=== PATIENT | female | born 1960 | race African-American/Black ===

== ENCOUNTER 2017-11-22 20:39 | Inpatient (IN) ==
[2017-11-22] MEDS ORDERED: Nitroglycerin 0.4 MG TAB.SUBL SL ONE (20:58)
--- NOTE | 2017-11-22 21:03 | Emergency Department Note ---
Disposition Clinical Impression: Unstable angina Disposition: Admitted As Inpatient Condition: Good [facility]errals: [facility]Primary Care Provider[facility] - Neto Reynolds [Family Provider] - Forms: ED Satisfaction Letter Time of Disposition: 22:30 Chest Pain HPI - General Chief Complaint: ED Chest Pain Stated Complaint: Chest Pain Time Seen by Provider: 11/22/17 20:46 Source: patient, EMS Limitations: no limitations Vital Signs Reviewed: Yes Nursing Notes Reviewed: Yes - History of Present Illness HPI Narrative: 57-year-old female presents emergency of for chest pain. She was sent from the [facility]. Patient has been in an inpatient psychiatric unit for the past 42 days and also has a history of substance abuse. Patient has a history of cocaine use but has not had any cocaine in the past 42 days. She is a history of congestive heart failure and a previous [place]. She denies any stents. She states her last heart catheter was over 8 years ago. She states her last ejection fraction she was told was around 10%. Her legs are not significantly swollen she states. Nothing seems to improve or worsen her symptoms. Pain is located to the left anterior chest wall. No pain radiation. No other associated symptoms. Severity scale (1-10): 7 - Related Data Allergies Allergy/AdvReac Type Severity Reaction Status Date / Time No Known Allergies Allergy Verified 11/22/17 21:00 Review of Systems: Gen.: No fevers or chills or new weakness Eyes: Denies double vision or any vision changes Ears: Denies any otalgia Pharynx: Denies sore throat CV: Positive for chest pain Respiratory: Denies any cough or sputum production. No shortness of breath. GI: Denies any nausea, vomiting, diarrhea, constipation. Denies abdominal pain Neuro: Denies any headache. No problems with ambulation. No numbness. Skin: Denies any rashes or abrasions Psych: Denies any depression or suicidal or homicidal ideation Musculoskeletal: Denies any arthralgias or myalgias Chest Pain PMH - Past Medical History Medical history: Reports: CHF, diabetes, hypertension Psychiatric history: Reports: anxiety, depression - Social History Smoking Status: Current every day smoker Alcohol use: Reports: none Drug use: Reports: none Physical Exam - General Limitations: no limitations General appearance: alert, in no apparent distress - Head Head exam: atraumatic, normocephalic - Eye Eye exam: Present: normal appearance - ENT ENT exam: normal exam, normal oropharynx - Neck Neck exam: Present: normal inspection - Chest Chest inspection: Present: normal inspection - Respiratory Respiratory exam: Present: normal lung sounds bilaterally - Cardiovascular Cardiovascular exam: Present: regular rate, normal rhythm, normal heart sounds - Abdominal Exam Abdominal exam: Present: soft, Non-Tender, normal bowel sounds - Extremities Exam Extremities exam: Present: normal inspection, pedal edema (1+ pitting edema in the lower extremities bilaterally.) - Neurological Exam Neurological exam: Present: alert, oriented X3 - Psychiatric Psychiatric exam: Present: normal affect - Skin Skin exam: Present: warm, dry, intact Course Vital Signs Temperature 98.4 F 11/22/17 20:42 Pulse Rate 73 11/22/17 20:42 Respiratory Rate 16 11/22/17 20:42 Blood Pressure 123/82 11/22/17 20:42 O2 Sat by Pulse Oximetry 100 11/22/17 20:42 Temperature 98.4 F 11/22/17 20:42 Pulse Rate 73 11/22/17 21:13 Respiratory Rate 16 11/22/17 21:13 Blood Pressure 128/99 11/22/17 21:13 O2 Sat by Pulse Oximetry 99 11/22/17 21:13 Oxygen Delivery Oxygen Delivery Room Air Chest Pain - MDM Narrative Medical decision making narrative: Patient will be admitted for ACS evaluation. Lab work was unremarkable. Troponin negative. Chest x-ray okay. Spoke with hospitalist who accepted the patient. - Medical Records Medical records reviewed: Yes I reviewed the patient's medical records. - Lab Data Lab results reviewed: Yes I reviewed the patient's lab results. Result diagrams: 11/22/17 21:27 11/22/17 21:27 Lab Results 11/22/17 11/22/17 11/22/17 Range/Units 21:27 21:27 21:27 WBC 9.2 (4.3-11.1) K/mcL RBC 4.49 (3.82-4.97) M/mcL Hgb 13.5 (11.5-15.4) g/dL Hct 38.3 (35.3-44.9) % MCV 85.3 (83.0-100.0) fL MCH 30.1 (28.0-33.3) pg MCHC 35.2 (31.6-35.5) g/dL RDW 14.6 H (11.5-14.5) % Plt Count 200 (140-400) K/mcL MPV 10.6 (9.4-12.4) fL Immature Gran % 0.2 (0-4) % Seg Neutrophils % 28.5 % Lymphocytes % 57.9 % Monocytes % 9.5 % Eosinophils % 3.1 % Basophils % 0.8 % Neutrophils # 2.6 (1.6-8.9) K/mcL Lymphocytes # 5.3 H (0.6-4.6) K/mcL Monocytes # 0.9 (0.0-1.3) K/mcL Eosinophils # 0.3 (0.0-0.6) K/mcL Basophils # 0.1 (0.0-0.2) K/mcL PT 10.2 (9.4-12.1) Seconds INR 1.0 APTT 27.9 (26.0-36.0) Seconds Sodium 136 (136-145) mEq/L Potassium 4.6 (3.5-5.1) mEq/L Chloride 106 (98-107) mEq/L Carbon Dioxide 24 (23-29) mEq/L BUN 21 H (6-20) mg/dL Creatinine 1.45 H (0.60-1.20) mg/dL Est GFR ( Amer) 45 L (> 60) Est GFR (Non-Af Amer) 37 L (> 60) BUN/Creatinine Ratio 14 (6-26) Glucose 293 H (70-105) mg/dL Calculated Osmolality 296 (280-300) Calcium 9.5 (8.6-10.3) mg/dL Troponin I < 0.03 (< 0.04) ng/mL - Radiology Data Radiology results reviewed: Yes I reviewed the patient's radiology results. - EKG Data EKG attestation: Yes I reviewed and interpreted this EKG. EKG results narrative: EKG shows a rate of 77. questionable Normal sinus rhythm. Mcdonald is indeterminate. There is a left bundle branch block present. Poor quality EKG.
[2017-11-22 21:36] LABS: Basophils # 0.1 K/mcL (0.0-0.2); Basophils % 0.8 %; Eosinophils # 0.3 K/mcL (0.0-0.6); Eosinophils % 3.1 %; Hematocrit 38.3 % (35.3-44.9); Hemoglobin 13.5 g/dL (11.5-15.4); Immature Granulocytes % 0.2 % (0-4); Lymphocytes # 5.3 K/mcL (0.6-4.6); Lymphocytes % 57.9 %; Mean Corpuscular HGB Conc 35.2 g/dL (31.6-35.5); Mean Corpuscular Hemoglobin 30.1 pg (28.0-33.3); Mean Corpuscular Volume 85.3 fL (83.0-100.0); Mean Platelet Volume 10.6 fL (9.4-12.4); Monocytes # 0.9 K/mcL (0.0-1.3); Monocytes % 9.5 %; Neutrophils # 2.6 K/mcL (1.6-8.9); Platelet Count 200 K/mcL (140-400); Red Blood Count 4.49 M/mcL (3.82-4.97); Red Cell Distribution Width 14.6 % (11.5-14.5); Segmented Neutrophils % 28.5 %
[2017-11-22 21:41] LABS: Prothrombin Time 10.2 Seconds (9.4-12.1)
[2017-11-22 21:44] LABS: Activated Partial Thrombo Time 27.9 Seconds (26.0-36.0)
[2017-11-22 22:00] LABS: BUN/Creatinine Ratio 14 (6-26); Blood Urea Nitrogen 21 mg/dL (6-20); Calcium 9.5 mg/dL (8.6-10.3); Carbon Dioxide 24 mEq/L (23-29); Chloride 106 mEq/L (98-107); Glucose 293 mg/dL (70-105); Osmolality,Calculated 296 (280-300); Potassium 4.6 mEq/L (3.5-5.1); Sodium 136 mEq/L (136-145); eGFR For African Americans 45 (> 60); eGFR For Non-African Americans 37 (> 60)
[2017-11-22 22:01] LABS: Troponin I < 0.03 ng/mL (< 0.04)
[2017-11-22] MEDS ORDERED: Naloxone 0.4 MG/ML INJ IVP PRN (23:06)
[2017-11-22] MEDS ORDERED: Acetaminophen 325 MG TABLET PO PRN (23:06)
[2017-11-22] MEDS ORDERED: *HR* Dextrose 50 % in Water (Syg) 50 ML SYRINGE IVP PRN (23:06)
[2017-11-22] MEDS ORDERED: Dextrose Gel 15 GM/37.5 ML TUBE PO PRN ×2 (23:06)
[2017-11-22] MEDS ORDERED: D5% in Water 1,000 ML IVC PRN (23:06)
--- NOTE | 2017-11-22 23:13 | Internal Med History&Physical ---
Date of Encounter: 11/22/17 Time of Encounter: 23:08 Internal Medicine - H&P: HPI Chief complaint: Chest pain Admitted From: Emergency Dept Plans for Post Hospital Care: Home History of present illness: Ms. Cutler is a 57 year old female with history of hypertension, diabetes mellitus, emphysema, tobacco abuse, depression, history of substance abuse who comes from a [place] facility for substance rehabilitation as she has been there for about 5-6 weeks for cocaine abuse and has been clean since then. The patient's rehabilitation in terms of cocaine abuse has been going very well but she has been experiencing dyspnea mainly on exertion, orthopnea, PND, and occasional lower extremity swelling and per the patient she underwent workup that included an echocardiogram at the [place] which I do not have records of an reportedly she had an ejection fraction of 10%. She tells me that she was set up with a coach wirer and was going to see one next week. Today around 3:57 PM she experienced sudden onset of chest pain on the left side of her chest with radiation to the left shoulder. An EKG was done there that showed left bundle branch block but reportedly she has a history of it as well. She was given aspirin and was sent to the ED. She was hemodynamically stable and underwent further workup in the ED that included troponins that were not elevated and an EKG that again confirmed left bundle branch block. She was given sublingual nitroglycerin with complete resolution of her chest pain by the time I saw her. Patient reports undergoinga [facility] about 10 years ago or so and was told she had an "[place]" but has no stents. She denies any other symptoms such as fever, chills, headache, blurry vision, diaphoresis, nausea, vomiting, abdominal pain, urinary symptoms, or neurological symptoms. Past Med Surg Social Fam HX - Past Medical History Medical history: CHF, diabetes, hypertension Psychiatric history: anxiety, depression - Social History Smoking Status: Current every day smoker Alcohol use: none Drug use: none Internal Medicine - H&P: Meds 3 Allergy/AdvReac Type Severity Reaction Status Date / Time No Known Allergies Allergy Verified 11/22/17 21:00 All Systems PM: A 10-system review of systems was performed and is negative for pertinent findings except as documented above in the HPI. Review of systems: GEN: NAD HEENT: AT, NC, No cyanosis, oral mucosa is moist, No JVD Lymphatics: No lymphadenoapthy Eyes: Extrocular muscles intact, anicteric CVS:RRR. S1, S2, No m/r/g RESP: CTAB ABD: Soft, NT, ND, +BS EXT: No edema, No rashes, 2+ DP NEURO: Nonfocal, CN II-XII intact, No focal motor or sensory deficits Psych: Cooperative, Not anxious or depressed - Constitutional Vitals: Temp Pulse Resp BP Pulse Ox 98.4 F 72 18 118/82 98 11/22/17 20:42 11/22/17 22:40 11/22/17 22:40 11/22/17 22:40 11/22/17 22:40 Internal Med - H&P Results - Labs CBC & Chem 7: 11/22/17 21:27 11/22/17 21:27 - Assessment and plan (1) Chest pain Current Visit: Yes Status: Acute Assessment and plan: Will admit to tele. Trend cardiac enzymes for now. check lipid panel and A1c. Obtain records of previous EKGs. Will ask cardiology to see given her history of LBBB and reportedly a recent echo with EF of 10%. Will obtain those records before repeating workup. SL nitro PRN. Will likely need a stress test on Friday. Qualifiers: Chest pain type: unspecified Qualified Code(s): R07.9 - Chest pain, unspecified (2) LBBB (left bundle branch block) Current Visit: Yes Status: Acute Assessment and plan: As above. Will try to get previous EKGs. (3) Cardiac LV ejection fraction 10-20% Current Visit: Yes Status: Acute Assessment and plan: Patient reports an EF of 10% about 2 weeks ago and was set up with cardiology. I do not have those records. She has symptoms of heart failure but clinically she looks well. CXR is clear. Not hypoxic. As above, will try to get records of the echo. If not, we will have to repeat an echo. (4) Abnormal kidney function Current Visit: Yes Status: Acute Assessment and plan: Unsure baseline. I suspect the patient has underlying CKD. I have asked for previous labs to compare. (5) Diabetes mellitus Current Visit: Yes Status: Acute Assessment and plan: Will put on Sliding scale insulin for now. Accuchecks. Check A1c Qualifiers: Diabetes mellitus type: type 2 Diabetes mellitus assisted insulin use: without assisted use Diabetes mellitus complication status: without complication Qualified Code(s): E11.9 - Type 2 diabetes mellitus without complications (6) Hypertension Current Visit: Yes Status: Acute Assessment and plan: Resume antihypertensives once verified Qualifiers: Hypertension type: essential hypertension Qualified Code(s): I10 - Essential (primary) hypertension (7) Depression Current Visit: Yes Status: Acute Assessment and plan: Resume anti-depressants once verified Qualifiers: Depression Type: unspecified Qualified Code(s): F32.9 - Major depressive disorder, single episode, unspecified (8) Substance abuse Current Visit: Yes Status: Acute Assessment and plan: Says she has been clean since she has been in rehab. ED has ordered a UDS which is pending. (9) Tobacco abuse Current Visit: Yes Status: Acute Assessment and plan: Nicotine patch (10) DVT prophylaxis Current Visit: Yes Status: Acute Assessment and plan: heparin SQ - Time Spent With Patient Total time spent is greater than 50% in coordination of care (as documented) at patient's floor/unit and/or counseling patient:
[2017-11-22 23:45] LABS: Amphetamine Screen,Urine Negative ng/mL (Cutoff=1000); Barbiturate Screen,Urine Negative ng/mL (Cutoff=200); Benzodiazepines Screen,Urine Negative ng/mL (Cutoff=200); Cannabinoid Screen,Urine Negative ng/mL (Cutoff = 50); Cocaine Screen,Urine Negative ng/mL (Cutoff= 300); Opiate Screen,Urine Negative ng/mL (Cutoff=300); Phencyclidine Screen,Urine Negative ng/mL (Cutoff=25)
[2017-11-23] MEDS ORDERED: hydrOXYzine pamoate 25 MG CAPSULE PO PRN (01:09)
[2017-11-23] MEDS: traZODone 50 MG TABLET PO SCH ×2 (01:26→19:57)
[2017-11-23 05:24] LABS: Basophils # 0.1 K/mcL (0.0-0.2); Basophils % 0.9 %; Eosinophils # 0.3 K/mcL (0.0-0.6); Eosinophils % 3.7 %; Hematocrit 36.5 % (35.3-44.9); Hemoglobin 12.3 g/dL (11.5-15.4); Immature Granulocytes % 0.1 % (0-4); Lymphocytes # 5.3 K/mcL (0.6-4.6); Lymphocytes % 59.5 %; Mean Corpuscular HGB Conc 33.7 g/dL (31.6-35.5); Mean Corpuscular Hemoglobin 28.8 pg (28.0-33.3); Mean Corpuscular Volume 85.5 fL (83.0-100.0); Mean Platelet Volume 10.5 fL (9.4-12.4); Monocytes # 0.9 K/mcL (0.0-1.3); Monocytes % 9.8 %; Neutrophils # 2.3 K/mcL (1.6-8.9); Platelet Count 188 K/mcL (140-400); Red Blood Count 4.27 M/mcL (3.82-4.97); Red Cell Distribution Width 14.9 % (11.5-14.5)
[2017-11-23 05:46] LABS: Calcium 9.6 mg/dL (8.6-10.3); Chol/HDL Ratio 3.4 (0-4.9); Magnesium 1.9 mg/dL (1.6-2.6); Potassium 3.9 mEq/L (3.5-5.1)
[2017-11-23] MEDS: *HR* Heparin 5,000 UNIT/ML VIAL SQ SCH ×3 (05:54→21:39)
[2017-11-23 06:00] LABS: Thyroid Stimulating Hormone 2.115 mcIU/mL (0.340-5.600)
[2017-11-23] MEDS: Tiotropium 18 MCG inhalation IH SCH (08:26)
[2017-11-23] MEDS: Budesonide/Formoterol 160/4.5 MDI IH SCH ×2 (08:26→19:44)
[2017-11-23] MEDS: Sennosides 8.6 MG TABLET PO SCH (08:50)
[2017-11-23] MEDS: Insulin LISPRO 300 UNITS/3 ML VIAL SQ SCH ×4 (08:50→20:38)
[2017-11-23] MEDS: Baclofen 10 MG TABLET PO SCH ×3 (08:51→19:57)
[2017-11-23] MEDS: Famotidine 20 MG TABLET PO SCH (08:51)
[2017-11-23] MEDS: Pregabalin 50 MG CAPSULE PO SCH (08:52)
[2017-11-23] MEDS: Cholecalciferol (D-3) 1,000 UNIT TABLET PO SCH (08:52)
[2017-11-23] MEDS ORDERED: Acetaminophen 325 MG TABLET PO SCH (09:00)
[2017-11-23] MEDS ORDERED: NON-FORMULARY MEDICATION 1 EACH EACH (Insulin Glargine [Lantus] 32 UNIT) SQ SCH (09:00)
[2017-11-23] MEDS: Nicotine 21 MG PATCH.TD24 TD SCH (09:02)
[2017-11-23] MEDS: Insulin DETEMIR 100 UNIT/ML X5UNITS SQ SCH (09:11)
[2017-11-23] MEDS: Loratadine 10 MG TABLET PO SCH (09:11)
[2017-11-23] MEDS: Pyridoxine (B-6) 50 MG TABLET PO SCH (09:12)
[2017-11-23 12:55] LABS: Estimated Average Glucose 212 mg/dl
--- NOTE | 2017-11-23 13:46 | Internal Med Progress Note ---
Date of Encounter: 11/23/17 Time of Encounter: 13:43 - Assessment and plan (1) Chest pain Current Visit: Yes Status: Acute Assessment and plan: Patient presented with chest pain, prior history of MA but reports no stents. Chest pain subsided in the ED after 1 dose of sublingual nitroglycerin. Patient is an obese, diabetic current daily smoker with a substance abuse history. Additionally reporting family history of early cardiac demise She is reporting recent echo results from [facility] with EF of 10%,- these results were not sent with medical record, obtained TTE today EKG with left bundle branch block, unclear if this is acute or chronic; request for medical records from [place] pending Cardiology consulted-consider stress test per the recommendations of cardiology No return of chest pain throughout this stay, resting comfortably without any distress, hemodynamically stable. Troponin negative 3 Lipid panel returned with results of triglycerides 157, total cholesterol 137, LDL 66, VLDL 31, HDL 40, cholesterol/HDL ratio 3.4 Continuous telemetry SL nitroglycerin when necessary Patient will likely need stress test on Friday-defer to cardiology-patient reports she is allergic to "the dye used for stress test, cause me to have a heart attack" Continue Coreg, start 81 mg of aspirin daily and statin daily Qualifiers: Chest pain type: unspecified Qualified Code(s): R07.9 - Chest pain, unspecified (2) Heart failure Current Visit: Yes Status: Acute Assessment and plan: Patient reporting heart failure with an ejection fraction of 10%. She reports this was obtained from an echocardiogram completed at the [facility]. No record of TTE on file or sent from the [place]. A repeat request for records sent from prior provider, still no record available today. Obtain TTE now Qualifiers: Heart failure chronicity: unspecified Qualified Code(s): I50.9 - Heart failure, unspecified (3) LBBB (left bundle branch block) Current Visit: Yes Status: Acute Assessment and plan: Obtain medical records from [place], unclear if acute changes versus chronic (4) Abnormal kidney function Current Visit: Yes Status: Acute Assessment and plan: Patient reports prior history of CKD, follows with nephrology group in [facility]. Unsure of prior baseline. Continue to monitor renal function, renal protective measures (5) Diabetes mellitus Current Visit: Yes Status: Acute Assessment and plan: Continue sliding scale Sliding scale insulin and basal insulin coverage. Accuchecks. Check A1c Qualifiers: Diabetes mellitus type: type 2 Diabetes mellitus halfway insulin use: without buttermaker helper use Diabetes mellitus complication status: without complication Qualified Code(s): E11.9 - Type 2 diabetes mellitus without complications (6) Hypertension Current Visit: Yes Status: Acute Assessment and plan: Blood pressure stable, continue anti-HTN medications and monitor for changes and add adjunct therapy as needed Qualifiers: Hypertension type: essential hypertension Qualified Code(s): I10 - Essential (primary) hypertension (7) Depression Current Visit: Yes Status: Acute Assessment and plan: Continue antidepressants Qualifiers: Depression Type: unspecified Qualified Code(s): F32.9 - Major depressive disorder, single episode, unspecified (8) Substance abuse Current Visit: Yes Status: Acute Assessment and plan: History of substance abuse, reports she has been clean and sober for 42 days. UDS negative (9) Tobacco abuse Current Visit: Yes Status: Acute Assessment and plan: History of tobacco abuse, continued Nicotine patch (10) DVT prophylaxis Current Visit: Yes Status: Acute Assessment and plan: Continue subcutaneous heparin - Time Spent With Patient Total time spent is greater than 50% in coordination of care (as documented) at patient's floor/unit and/or counseling patient: Greater than 35 minutes - Subjective Interval history: Ms. Cutler is a 57 year old female with history of hypertension, diabetes mellitus, emphysema, tobacco abuse, depression, history of substance abuse who comes from a [place] facility for substance rehabilitation as she has been there for about 5-6 weeks for cocaine abuse and has been clean since then. The patient's rehabilitation in terms of cocaine abuse has been going very well but she has been experiencing dyspnea mainly on exertion, orthopnea, PND, and occasional lower extremity swelling and per the patient she underwent workup that included an echocardiogram at the [place] which I do not have records of an reportedly she had an ejection fraction of 10%. Resolution of chest pain achieved upon arrival to [facility] with 1 dose of sublingual nitroglycerin. Patient seen and examined at bedside today, continues to deny chest pain, shortness of breath, diaphoresis, nausea or vomiting. - Constitutional Vitals: Temp Pulse Resp BP Pulse Ox 98.1 F 73 18 155/91 98 11/23/17 10:49 11/23/17 10:49 11/23/17 10:49 11/23/17 10:49 11/23/17 10:49 General appearance: Present: A&O X 3, morbidly obese Internal Medicine: Result - Labs CBC & Chem 7: 11/23/17 05:04 11/23/17 05:04 Labs: Short CBC 11/23/17 Range/Units 05:04 WBC 9.0 (4.3-11.1) K/mcL Hgb 12.3 (11.5-15.4) g/dL Hct 36.5 (35.3-44.9) % Plt Count 188 (140-400) K/mcL Neutrophils # 2.3 (1.6-8.9) K/mcL BMP 11/23/17 05:04 Sodium 140 Potassium 3.9 Chloride 110 H Carbon Dioxide 25 BUN 21 H Creatinine 1.35 H Glucose 151 H Calcium 9.6 Cardiac Enzymes 11/23/17 Range/Units 05:04 Troponin I < 0.03 (< 0.04) ng/mL - ABG Interpretation ABG results: PT/INR, D-dimer PT 10.2 Seconds (9.4-12.1) 11/22/17 21:27 - Prior EKG Data Prior EKG available for review: no EKG comments: Per my review of EKG, atrial flutter rate control, with bundle branch block, no prior EKG for comparison, no definitive signs of ischemia. 11/23/17 13:46 Consult Discharge Plan - Plan Referrals: [facility] [Primary Care Provider] - Neto Reynolds [Family Provider] -
--- NOTE | 2017-11-23 14:11 | Cardiology Consult Note ---
Date of Encounter: 11/23/17 Time of Encounter: 08:00 Assessment and Plan (1) Chest pain Current Visit: Yes Status: Acute Currently CP free. May have been related to CHF which now has resolved. Will obtain records of prior cardiac catheterization from [place]. Qualifiers: Chest pain type: unspecified Qualified Code(s): R07.9 - Chest pain, unspecified (2) Cardiomyopathy Current Visit: Yes Status: Chronic Presumed nonischemic cardiomyopathy. Had EF 10% in 2013, reportedly still 10% by echo at [place]. Will repeat echocardiogram to evaluate. Obtain records from [place] regarding prior cardiac catheterization. Will c/s EP regarding timing for BiV/ ICD implantation. Qualifiers: Cardiomyopathy type: unspecified Qualified Code(s): I42.9 - Cardiomyopathy , unspecified (3) Acute on chronic HFrEF (heart failure with reduced ejection fraction) Current Visit: Yes Status: Chronic Currently appears compensated. Continue carvedilol, losartan. (4) Hepatitis C Current Visit: No Status: Chronic Qualifiers: Viral hepatitis chronicity: chronic Hepatic coma status: without hepatic coma Qualified Code(s): B18.2 - Chronic viral hepatitis C (5) Hypertension Current Visit: No Status: Chronic Qualifiers: Hypertension type: essential hypertension Qualified Code(s): I10 - Essential (primary) hypertension (6) LBBB (left bundle branch block) Current Visit: No Status: Chronic Chronic- present on EKGs from 2013. (7) Substance abuse Current Visit: Yes Status: Acute Discussion w patient/family: The assessment and plan as outlined above was discussed with the patient and/or family members who expressed understanding and agreement. All questions were answered. Thank you for involving us in the care of your patient. Please call with any questions. History of Present Illness Consult date: 11/23/17 Requesting physician: Dean Pires Consult reason: CP History of present illness: Ms. Cutler is a 57 year old AAF with hx of cardiomyopathy, LBBB, DM, HTN, hep C , substance abuse presents to [facility] c/o CP, dyspnea. Pt transferred from [place] inpatient rehab facility where being treated for cocaine abuse for past 5-6 weeks. Pt states had intermittent SSCP that radiated to L shoulder associated with dyspnea. Was given SL NTG which resolved symptoms. No recurrent symptoms. EKG demonstrates NSR with LBBB which is chronic. Has orthopnea- sleeps on 3 pillows. Denies PND, LE edema, dizziness, lightheadness, syncope. Has known history of CMP. Echocardiogram in 2012 while hospitalized for TCA overdose demonstrated EF 10% with no significant valvular heart disease. Pt reports she had another echocardiogram just a few weeks ago that again demonstrated EF 10%- no records available for my review. Reports she had cardiac catheterization a few year ago at [facility] and told "no blockages. " Pt reports told she needs a defibrillator but "they didn't want to put it in bc I wasn't clean from drugs." No records available for review. Past Med Surg Social Fam HX - Past Medical History Medical history: cardiomyopathy, CHF, diabetes, hepatitis (hepatitis C), hyperlipidemia, hypertension Psychiatric history: anxiety, depression, prior suicide attempt, previous psychiatric hospitalization - Social History Smoking Status: Current every day smoker Alcohol use: none Drug use: none, other (hx polysubstance abuse) - Family History Father Living Status: Hx Family Cardiac Disorders: Yes Medications and Allergies Acetaminophen [Non-Aspirin] 650 mg PO TID PRN 11/23/17 [History] Albuterol Sulfate [Albuterol Inhaler] 2 puff IH Q4HR PRN 11/23/17 [History] Baclofen [Lioresal] 5 mg PO TID 11/23/17 [History] Budesonide/Formoterol 160/4.5 [Symbicort 160/4.5] 2 puff IH BIDR 11/23/17 [ History] Carvedilol 12.5 mg PO BID 11/23/17 [History] Cetirizine HCl [Zyrtec] 10 mg PO DAILY 11/23/17 [History] Cholecalciferol (Vitamin D3) [Vitamin D] 2,000 unit PO DAILY 11/23/17 [History] Docusate Sodium [Dulcolax Stool Softener] 100 mg PO DAILY 11/23/17 [History] Famotidine [Acid Controller] 20 mg PO DAILY 11/23/17 [History] GuaiFENesin/Dextromethorphan [Robitussin/DM] 10 ml PO Q6HR 11/23/17 [History] Hydrophilic Cream [Triad] 170 gm TP DAILY 11/23/17 [History] Insulin Glargine [Lantus] 32 unit SQ DAILY 11/23/17 [History] Insulin Human Regular [HumuLIN R] 0 unit SQ ONCE 11/23/17 [History] Lactobacillus Acidophilus [Acidophilus Lactobacillus] 1 each PO DAILY 11/23/17 [ History] Losartan [Cozaar] 25 mg PO DAILY 11/23/17 [History] Loxapine Succinate [Loxapine] 30 mg PO HS 11/23/17 [History] Magnesium Oxide [Magnesium] 400 mg PO BID 11/23/17 [History] Melatonin 9 mg PO HS 11/23/17 [History] Polyethylene Glycol 400 [Polyethylene Glycol 400] 1 drop BOTH EYES QID 11/23/17 [History] Pregabalin [Lyrica] 100 mg PO DAILY 11/23/17 [History] Pyridoxine (B-6) [Vitamin B-6] 50 mg PO DAILY 11/23/17 [History] Sennosides [Laxative] 17.2 mg PO DAILY 11/23/17 [History] Tiotropium [Spiriva] 18 mcg IH DAILY 11/23/17 [History] Vitamin E (Dl,Tocopheryl Acet) [Vitamin E] 400 unit PO DAILY 11/23/17 [History] hydrOXYzine HCl [Hydroxyzine HCl] 25 mg PO TID PRN 11/23/17 [History] traZODone [TraZODone] 150 mg PO HS 11/23/17 [History] 3 Allergy/AdvReac Type Severity Reaction Status Date / Time ampicillin Allergy See Verified 11/23/17 00:39 Comments cephalexin Allergy See Verified 11/23/17 00:39 Comments Erythromycin Base Allergy See Verified 11/23/17 00:39 Comments furosemide Allergy See Verified 11/23/17 00:39 Comments lisinopril Allergy See Verified 11/23/17 00:39 Comments metformin Allergy See Verified 11/23/17 00:41 Comments Penicillins Allergy See Verified 11/23/17 00:39 Comments Sulfa (Sulfonamide Allergy See Verified 11/23/17 00:39 Antibiotics) Comments contrast media Allergy See Uncoded 11/23/17 00:41 Comments All Systems Review: The remainder of the systems were reviewed and are negative - Cardiovascular Cardiovascular: as per HPI Physical Examination Vital Signs, Last 4 Hours Temp Pulse Resp BP Pulse Ox 11/23/17 10:49 98.1 F 73 18 155/91 98 General: Conversant, No Apparent Distress HEENT: Atraumatic, Normocephaly, Mucus Membranes Moist Neck: No JVD, Normal carotid pulses Cardiac: Reg Rate and Rhythm, Normal S1 and S2, No Murmur, Other (S3 gallop) Lungs: Normal Breath Sounds, No Wheeze, Rales, Rhonchi Neuro: Alert and responsive, No focal deficits noted Abdomen: Soft, Non-Tender Skin: No rashes noted on visualized skin Musculoskeletal: No Chest Wall Tenderness Extremities: No Clubbing, No Cyanosis, No Edema, Normal Pulses Results 11/23/17 05:04 11/23/17 05:04 Lab Results 11/23/17 11/23/17 11/23/17 05:04 05:04 05:04 WBC 9.0 Hgb 12.3 Hct 36.5 Plt Count 188 Sodium 140 Potassium 3.9 Chloride 110 H Carbon Dioxide 25 BUN 21 H Creatinine 1.35 H Glucose 151 H Calcium 9.6 Magnesium 1.9 Troponin I < 0.03 TSH 2.115 - EKG Interpretation EKG results cardiology: personally reviewed (NSR with 1st degree AVB, LBBB with QRS 153ms) Consult Discharge Plan - Plan Referrals: [facility] [Primary Care Provider] - Neto Reynolds [Family Provider] -
[2017-11-23] MEDS: Aspirin 81 MG TAB.CHEW PO SCH (14:30)
[2017-11-23] MEDS: Melatonin 3 MG TABLET PO SCH (19:57)
[2017-11-24] MEDS: *HR* Heparin 5,000 UNIT/ML VIAL SQ SCH ×3 (05:15→20:37)
[2017-11-24] MEDS: Insulin LISPRO 300 UNITS/3 ML VIAL SQ SCH ×4 (07:30→20:39)
[2017-11-24] MEDS: Budesonide/Formoterol 160/4.5 MDI IH SCH ×2 (07:36→21:25)
[2017-11-24] MEDS: Tiotropium 18 MCG inhalation IH SCH (07:37)
--- NOTE | 2017-11-24 09:43 | Electrophysiology Consult Note ---
<Ponce Pedersen R - Last Filed: 11/24/17 11:52> Date of Encounter: 11/24/17 Time of Encounter: 09:40 Assessment and Plan (1) Cardiomyopathy Current Visit: Yes Status: Chronic NICMP. EF 10% in 2012, [facility] and EF 10-15%, global, no significant valvular dysfunction. Repeat TTE pending. Obtained records from [facility] from 2007 at [facility], nonobstructive CAD, luminal irregularities. Bridging in distal LAD clinically nonsignificant. Continue BB and ARB. CMP has been noted 2007--indication on LHC in 2007 was CMP. LBBB with QRS > 150ms. Candidate for BiV/ICD. Discussed with Dr. Bry Bhatti regarding timing for implantation. Recommends repeat LHC since it has been 10 years to confirm still NICMP. Plan for LHC tomorrow. Hives with IVP, will pre-medicate. Will also obtain approval through [facility]. Likely recommend BiV ICD as outpt and recheck TTE once pt has been clean from drugs and compliant with meds for 3 months. Qualifiers: Cardiomyopathy type: unspecified Qualified Code(s): I42.9 - Cardiomyopathy , unspecified (2) Chest pain Current Visit: Yes Status: Acute Currently CP free, no recurrence since admission. Troponin negative x 2. May have been related to CHF which now has resolved. [facility] record obtained from 2007 at [facility], nonobstructive CAD, luminal irregularities. Bridging in distal LAD clinically nonsignificant. Given LHC was 10 years ago and was for false positive stress test and CMP at that time, recommend repeat LHC. Allergic to IVP dye--hives. Will premedicate and discuss with [facility] for [facility] approval. Plan for LHC tomorrow. Qualifiers: Chest pain type: unspecified Qualified Code(s): R07.9 - Chest pain, unspecified (3) Acute on chronic HFrEF (heart failure with reduced ejection fraction) Current Visit: Yes Status: Chronic Currently appears compensated. CXR without acute findings. Reports at baseline has 3 pillow orthopnea, conversational dyspnea. Continue BB and ARB. Discussion w patient/family: The assessment and plan as outlined above was discussed with the patient and/or family members who expressed understanding and agreement. All questions were answered. Thank you for involving us in the care of your patient. Please call with any questions. I will discuss all the above with Dr. Bry Bhatti and make changes as necessary. History of Present Illness Consult date: 11/24/17 Requesting physician: Elif Bhatti Consult reason: CMP, ICD evaluation Chief complaint: dyspnea History of present illness: Ms. Cutler is a 57 year old female with hx of cardiomyopathy, LBBB, DM, HTN, hep C, substance abuse presents to [facility] c/o CP, dyspnea. [place] where being treated for cocaine abuse for past 5-6 weeks. She had intermittent SSCP that radiated to L shoulder associated with dyspnea, relieved with SL NTG without recurrence. EKG demonstrates NSR with LBBB which is chronic. Has orthopnea- sleeps on 3 pillows. Denies PND, LE edema, dizziness, lightheadness, syncope. Has known history of CMP. Echocardiogram in 2012 while hospitalized for TCA overdose demonstrated EF 10% with no significant valvular heart disease. Recent TTE at OR 10/2017 EF 10-15% without significant valvular disease. [facility] record obtained from 2007 at [facility], nonobstructive CAD, luminal irregularities. Bridging in distal LAD clinically nonsignificant. Reports being told she needs a defibrillator but "they didn't want to put it in bc I wasn't clean from drugs." EP consulted to further evaluate for BiV ICD. Past Med Surg Social Fam HX - Past Medical History Medical history: cardiomyopathy, CHF, diabetes, hepatitis (hepatitis C), hyperlipidemia, hypertension Psychiatric history: anxiety, depression, prior suicide attempt, previous psychiatric hospitalization - Social History Smoking Status: Current every day smoker Alcohol use: none Drug use: none, other (hx polysubstance abuse) - Family History Father Living Status: Hx Family Cardiac Disorders: Yes Medications and Allergies Acetaminophen [Non-Aspirin] 650 mg PO TID PRN 11/23/17 [History] Albuterol Sulfate [Albuterol Inhaler] 2 puff IH Q4HR PRN 11/23/17 [History] Baclofen [Lioresal] 5 mg PO TID 11/23/17 [History] Budesonide/Formoterol 160/4.5 [Symbicort 160/4.5] 2 puff IH BIDR 11/23/17 [ History] Carvedilol 12.5 mg PO BID 11/23/17 [History] Cetirizine HCl [Zyrtec] 10 mg PO DAILY 11/23/17 [History] Cholecalciferol (Vitamin D3) [Vitamin D] 2,000 unit PO DAILY 11/23/17 [History] Docusate Sodium [Dulcolax Stool Softener] 100 mg PO DAILY 11/23/17 [History] Famotidine [Acid Controller] 20 mg PO DAILY 11/23/17 [History] GuaiFENesin/Dextromethorphan [Robitussin/DM] 10 ml PO Q6HR 11/23/17 [History] Hydrophilic Cream [Triad] 170 gm TP DAILY 11/23/17 [History] Insulin Glargine [Lantus] 32 unit SQ DAILY 11/23/17 [History] Insulin Human Regular [HumuLIN R] 0 unit SQ TID PRN 11/23/17 [History] Lactobacillus Acidophilus [Acidophilus Lactobacillus] 1 each PO DAILY 11/23/17 [ History] Losartan [Cozaar] 25 mg PO DAILY 11/23/17 [History] Loxapine Succinate [Loxapine] 30 mg PO HS 11/23/17 [History] Magnesium Oxide [Magnesium] 400 mg PO BID 11/23/17 [History] Melatonin 9 mg PO HS 11/23/17 [History] Polyethylene Glycol 400 [Polyethylene Glycol 400] 1 drop BOTH EYES QID 11/23/17 [History] Pregabalin [Lyrica] 150 mg PO BID 11/23/17 [History] Pyridoxine (B-6) [Vitamin B-6] 50 mg PO DAILY 11/23/17 [History] Sennosides [Laxative] 17.2 mg PO DAILY 11/23/17 [History] Tiotropium [Spiriva] 18 mcg IH DAILY 11/23/17 [History] Topiramate [Topamax] 50 mg PO HS 11/23/17 [History] Vitamin E (Dl,Tocopheryl Acet) [Vitamin E] 400 unit PO DAILY 11/23/17 [History] hydrOXYzine pamoate [HydrOXYzine Pamoate] 25 mg PO TID 11/23/17 [History] traZODone [TraZODone] 150 mg PO HS 11/23/17 [History] 3 Allergy/AdvReac Type Severity Reaction Status Date / Time ampicillin Allergy See Verified 11/23/17 00:39 Comments cephalexin Allergy See Verified 11/23/17 00:39 Comments Erythromycin Base Allergy See Verified 11/23/17 00:39 Comments furosemide Allergy See Verified 11/23/17 00:39 Comments lisinopril Allergy See Verified 11/23/17 00:39 Comments metformin Allergy See Verified 11/23/17 00:41 Comments Penicillins Allergy See Verified 11/23/17 00:39 Comments Sulfa (Sulfonamide Allergy See Verified 11/23/17 00:39 Antibiotics) Comments contrast media Allergy See Uncoded 11/23/17 00:41 Comments All Systems Review: The remainder of the systems were reviewed and are negative - Cardiovascular Cardiovascular: as per HPI, chest pain at rest, dyspnea at rest, dyspnea on exertion, radiating jaw, neck or arm pain, orthopnea, paroxysmal nocturnal dyspnea - Respiratory Respiratory: cough, dyspnea Physical Examination Vital Signs, Last 4 Hours Temp Pulse Resp BP Pulse Ox 11/24/17 07:40 16 99 11/24/17 06:37 97.7 F 64 14 166/89 99 Vital Signs Temp Pulse Resp BP Pulse Ox 11/24/17 07:40 16 99 11/24/17 06:37 97.7 F 64 14 166/89 99 11/24/17 03:05 97.7 F 67 16 144/92 100 11/23/17 23:25 97.7 F 61 16 137/81 100 11/23/17 19:56 98.0 F 68 16 129/85 100 11/23/17 16:16 97.9 F 84 18 144/89 99 11/23/17 10:49 98.1 F 73 18 155/91 98 Intake and Output 11/23/17 11/24/17 11/24/17 23:59 07:59 15:59 Intake Total 240 / 240 0 / 0 Balance 240 / 240 0 / 0 Intake: Oral 240 / 240 0 / 0 Other: # Voids 1 2 Weight 94.8 kg Blood Glucose* 272 136 Patient Weight 11/24/17 23:59 Weight 94.8 kg General: Conversant, No Apparent Distress HEENT: Atraumatic, Normocephaly, Mucus Membranes Moist Neck: Normal carotid pulses Cardiac: Reg Rate and Rhythm, Normal S1 and S2, No Murmur Lungs: Normal Breath Sounds, No Wheeze, Rales, Rhonchi Neuro: Alert and responsive, No focal deficits noted Abdomen: Soft, Non-Tender Skin: No rashes noted on visualized skin Musculoskeletal: No Chest Wall Tenderness Extremities: No Clubbing, No Cyanosis, No Edema, Normal Pulses Results 11/23/17 05:04 11/23/17 05:04 Active Medications Acetaminophen (Tylenol) 650 mg PO Q6HR PRN PRN Reason: Mild Pain/Fever Stop: 05/24/18 23:07 Albuterol Sulfate (Albuterol Inhaler) 2 puff IH Q4HR PRN PRN Reason: wheeze, shortness of breath Stop: 05/25/18 01:10 Aspirin (Aspirin) 81 mg PO DAILY [facility] Stop: 05/25/18 14:16 Last Admin: 11/23/17 14:30 Dose: 81 mg Baclofen (Lioresal) 5 mg PO TID [facility] Stop: 05/25/18 09:01 Last Admin: 11/23/17 19:57 Dose: 5 mg Budesonide/Formoterol Fumarate (Symbicort) 2 puff IH BIDR [facility] PRN Reason: Protocol Stop: 05/25/18 10:01 Last Admin: 11/24/17 07:36 Dose: 2 puff Carvedilol (Coreg) 12.5 mg PO BIDWM [facility] Stop: 05/25/18 08:01 Last Admin: 11/23/17 17:11 Dose: 12.5 mg Dextrose/Water (Dextrose 50% (Syg)) 25 ml IVP AD PRN PRN Reason: Hypoglycemia Stop: 05/24/18 23:07 Docusate Sodium (Colace) 100 mg PO DAILY [facility] PRN Reason: Protocol Stop: 05/25/18 09:01 Last Admin: 11/23/17 08:52 Dose: 100 mg Famotidine (Pepcid) 20 mg PO DAILY [facility] PRN Reason: Protocol Stop: 05/25/18 09:01 Last Admin: 11/23/17 08:51 Dose: 20 mg Glucagon (Glucagen) 1 mg IM ONCE PRN PRN Reason: Hypoglycemia Stop: 05/24/18 23:07 Glucose (Gluctose) 15 gm PO ONCE PRN PRN Reason: Hypoglycemia Stop: 05/24/18 23:07 Glucose (Gluctose) 30 gm PO ONCE PRN PRN Reason: Hypoglycemia Stop: 05/24/18 23:07 Heparin Sodium (Porcine) (Heparin) 5,000 unit SQ Q8HCO [facility] Stop: 05/25/18 06:01 Last Admin: 11/24/17 05:15 Dose: 5,000 unit Hydroxyzine Pamoate (Hydroxyzine Pamoate) 25 mg PO TID PRN PRN Reason: Anxiety Dextrose (Dextrose 5%) 1,000 mls @ 100 mls/hr IVC .Q10H PRN PRN Reason: HYPOGLYCEMIA Stop: 05/24/18 23:07 Insulin Detemir (Levemir) 32 unit SQ DAILY [facility] Stop: 05/25/18 09:01 Last Admin: 11/23/17 09:11 Dose: 32 unit Insulin Human Lispro (Humalog) 0 units SQ HS [facility] PRN Reason: Protocol Stop: 05/25/18 21:01 Last Admin: 11/23/17 20:38 Dose: 4 units Insulin Human Lispro (Humalog) 0 units SQ TIDAC [facility] PRN Reason: Protocol Stop: 05/25/18 07:31 Last Admin: 11/24/17 07:30 Dose: Not Given Loratadine (Claritin) 10 mg PO DAILY [facility] Stop: 05/25/18 09:01 Last Admin: 11/23/17 09:11 Dose: 10 mg Losartan Potassium (Cozaar) 25 mg PO DAILY [facility] PRN Reason: Protocol Stop: 05/25/18 09:01 Last Admin: 11/23/17 08:51 Dose: 25 mg Melatonin (Melatonin) 9 mg PO HS [facility] Stop: 05/25/18 21:01 Last Admin: 11/23/17 19:57 Dose: 9 mg Naloxone HCl (Narcan) 0.4 mg IVP Q2MIN PRN PRN Reason: SEE COMMENTS Stop: 05/24/18 23:07 Nicotine (Nicoderm) 21 mg TD DAILY [facility] PRN Reason: Protocol Stop: 05/25/18 09:01 Last Admin: 11/23/17 09:02 Dose: Not Given Pregabalin (Lyrica) 100 mg PO DAILY [facility] Stop: 05/25/18 09:01 Last Admin: 11/23/17 08:52 Dose: 100 mg Pyridoxine HCl (Vitamin B-6) 50 mg PO DAILY [facility] Stop: 05/25/18 09:01 Last Admin: 11/23/17 09:12 Dose: 50 mg Senna (Senna) 17.2 mg PO DAILY [facility] Stop: 05/25/18 09:01 Last Admin: 11/23/17 08:50 Dose: 17.2 mg Simvastatin (Zocor) 40 mg PO HS [facility] PRN Reason: Protocol Stop: 05/25/18 21:01 Last Admin: 11/23/17 19:57 Dose: 40 mg Tiotropium [place] (Spiriva) 18 mcg IH DAILY [facility] Stop: 05/25/18 09:01 Last Admin: 11/24/17 07:37 Dose: 18 mcg Trazodone HCl (Trazodone) 150 mg PO HS [facility] Stop: 05/25/18 01:16 Last Admin: 11/23/17 19:57 Dose: 150 mg Vitamin D (Vitamin D) 1,000 unit PO DAILY [facility] Stop: 05/25/18 09:01 Last Admin: 11/23/17 08:52 Dose: 1,000 unit Vitamin E (Vitamin E) 400 unit PO DAILY [facility] Stop: 05/25/18 09:01 Last Admin: 11/23/17 08:52 Dose: 400 unit - Imaging and Cardiology Echo: pending, report reviewed - EKG Interpretation EKG results cardiology: other (12 hr tele AVG HR 63, SR, no significant pauses or arrhythmias noted.) Consult Discharge Plan - Plan [facility]errals: [facility] [Primary Care Provider] - 12/02/17 11:00 am <Bry Bhatti - Last Filed: 11/26/17 12:24> Date of Encounter: 11/26/17 - Attending Attestation I have personally performed a face to face evaluation on this patient. I have reviewed and agree with the care plan. History and Exam by me shows: Known nonischemic cardiomyopathy. History of drug use, currently in treatment. Previously had been turned down for ICD due to active drug use. Currently is in drug treatment. Would recommend outpt. f/u for elective ICD when has been compliant with meds and has been clean from drugs for at least 3 months. Then we will reevaluate LV function and proceed with ICD if EF< 35%. Assessment and Plan Discussion w patient/family: The assessment and plan as outlined above was discussed with the patient and/or family members who expressed understanding and agreement. All questions were answered. Thank you for involving us in the care of your patient. Please call with any questions. History of Present Illness History of present illness: Ms. Cutler is a 57 year old female All Systems Review: The remainder of the systems were reviewed and are negative Physical Examination Vital Signs, Last 4 Hours Temp Pulse Resp BP Pulse Ox 11/26/17 11:25 97.6 F 77 18 137/87 99 Results 11/26/17 03:58 11/26/17 03:58 Lab Results 11/26/17 11/26/17 03:58 03:58 WBC 14.4 H D Hgb 12.8 Hct 37.6 Plt Count 199 Sodium 134 L Potassium 4.3 Chloride 106 Carbon Dioxide 21 L BUN 30 H Creatinine 1.39 H Glucose 218 H Calcium 9.5
[2017-11-24] MEDS: Baclofen 10 MG TABLET PO SCH ×3 (12:25→20:38)
[2017-11-24] MEDS: Pregabalin 50 MG CAPSULE PO SCH (12:25)
[2017-11-24] MEDS: Pyridoxine (B-6) 50 MG TABLET PO SCH (12:25)
[2017-11-24] MEDS: Aspirin 81 MG TAB.CHEW PO SCH (12:26)
[2017-11-24] MEDS: Famotidine 20 MG TABLET PO SCH (12:26)
[2017-11-24] MEDS: Sennosides 8.6 MG TABLET PO SCH (12:26)
[2017-11-24] MEDS: Loratadine 10 MG TABLET PO SCH (12:26)
[2017-11-24] MEDS: Cholecalciferol (D-3) 1,000 UNIT TABLET PO SCH (12:26)
[2017-11-24] MEDS: Nicotine 21 MG PATCH.TD24 TD SCH (12:27)
[2017-11-24] MEDS: Insulin DETEMIR 100 UNIT/ML X5UNITS SQ SCH (12:34)
[2017-11-24] MEDS ORDERED: Perflutren Lipid Microsphere 1.3 ML in 0.9 % Sodium Chloride 8.7 ML IVP ONE (13:50)
--- NOTE | 2017-11-24 14:32 | Electrocardiograph Report ---
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
--- NOTE | 2017-11-24 14:33 | Electrocardiograph Report ---
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
--- NOTE | 2017-11-24 15:55 | Internal Med Progress Note ---
Date of Encounter: 11/24/17 Time of Encounter: 15:53 - Assessment and plan (1) Chest pain Current Visit: Yes Status: Acute Assessment and plan: Patient presented with chest pain, prior history of [place] but reports no stents. Chest pain subsided in the ED after 1 dose of sublingual nitroglycerin. No return of chest pain. Troponin is negative 3, ECG without changes from prior, no concerns for acute ischemia. Patient is an obese, diabetic current daily smoker with a substance abuse history. Additionally reporting family history of early cardiac demise TTE today with LVEF 15-20%, indeterminate diastolic function, severely dilated left ventricle, normal right ventricular structure and function, mild mitral regurgitation Cardiology consulted-patient scheduled to have [facility] Continuous telemetry SL nitroglycerin when necessary Patient reporting allergy to IVP dye-hives. Premedicate prior to [facility] Continue Coreg, start 81 mg of aspirin daily and statin daily Qualifiers: Chest pain type: unspecified Qualified Code(s): R07.9 - Chest pain, unspecified (2) Acute on chronic HFrEF (heart failure with reduced ejection fraction) Current Visit: Yes Status: Chronic Assessment and plan: Continue carvedilol and losartan (3) LBBB (left bundle branch block) Current Visit: No Status: Chronic Assessment and plan: cardiology following, chronic present on EKG's from 2013 (4) Abnormal kidney function Current Visit: Yes Status: Acute Assessment and plan: Patient reports prior history of CKD, follows with nephrology group in [facility]. Unsure of prior baseline. Renal function is remaining stable. Continue to monitor renal function, renal protective measures (5) Diabetes mellitus Current Visit: Yes Status: Acute Assessment and plan: Continue sliding scale and basal insulin. Blood glucose today appropriate. Accuchecks. 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 Qualifiers: Hypertension type: essential hypertension Qualified Code(s): I10 - Essential (primary) hypertension (7) Depression Current Visit: Yes Status: Acute Assessment and plan: History of depression, Continue antidepressants Qualifiers: Depression Type: unspecified Qualified Code(s): F32.9 - Major depressive disorder, single episode, unspecified (8) Substance abuse Current Visit: Yes Status: Acute Assessment and plan: History of substance abuse, reports she has been clean and sober for 42 days. UDS negative She has been informed that she would need to be free from drugs and compliant with medications for 3 months for potential Bi V ICD placement (9) Tobacco abuse Current Visit: Yes Status: Acute Assessment and plan: History of tobacco abuse, discussed tobacco cessation. Continue nicotine patch (10) DVT prophylaxis Current Visit: Yes Status: Acute Assessment and plan: Continue subcutaneous heparin 5000 units twice a day - Time Spent With Patient Total time spent is greater than 50% in coordination of care (as documented) at patient's floor/unit and/or counseling patient: 25 - 35 minutes - Subjective Interval history: Ms. Cutler is a 57 year old female with history of hypertension, diabetes mellitus, emphysema, tobacco abuse, depression, history of substance abuse who comes [place] for [place] rehabilitation as she has been there for about 5-6 weeks for cocaine abuse and has been clean since then. Presented with dyspnea on exertion and chest pain. Patient seen and examined at bedside today. No acute changes overnight. Denies any chest pain. - Constitutional Vitals: Temp Pulse Resp BP Pulse Ox 97.9 F 65 14 140/88 99 11/24/17 11:03 11/24/17 11:03 11/24/17 11:03 11/24/17 11:03 11/24/17 11:03 General appearance: Present: A&O X 3, morbidly obese - Head Head exam: Present: atraumatic, normocephalic - Eye Eye exam: Present: PERRL, conjuntiva pink, sclera anicteric Pupils: Present: PERRL - Neck Neck exam general surgery: Present: supple, trachea midline. Absent: lymphadenopathy - Respiratory Respiratory exam: Present: CTAB. Absent: accessory muscle use, rales, rhonchi, wheezes - Cardiovascular Cardiovascular exam: Present: RRR, +S1, +S2. Absent: diastolic murmur, gallop, rubs, systolic murmur - GI/Abdominal GI/Abdominal exam: Present: normal bowel sounds, soft, no peritoneal signs. Absent: distended, tenderness - Extremities Exam Extremities exam: Present: warm, radial pulses palpable and symmetrical. Absent : calf tenderness, cyanotic, pedal edema - Neurological Exam Neurological exam: Present: CN II-XII intact, oriented X3, no focal deficits. Absent: pronater drift, facial droop, speech deficit - Skin Skin exam: Present: dry, intact Internal Medicine: Result - Labs CBC & Chem 7: 11/23/17 05:04 11/23/17 05:04 - ABG Interpretation ABG results: PT/INR, D-dimer PT 10.2 Seconds (9.4-12.1) 11/22/17 21:27 Consult Discharge Plan - Plan Referrals: [facility] [Primary Care Provider] - 12/02/17 11:00 am Neto Reynolds [Family Provider] -
[2017-11-24] MEDS: traZODone 50 MG TABLET PO SCH (20:38)
[2017-11-24] MEDS: predniSONE 20 MG TABLET PO SCH (20:38)
[2017-11-24] MEDS: Melatonin 3 MG TABLET PO SCH (20:39)
[2017-11-25] MEDS: *HR* Heparin 5,000 UNIT/ML VIAL SQ SCH ×3 (06:11→21:37)
[2017-11-25 07:56] LABS: Basophils % 0.2 %; Hematocrit 39.4 % (35.3-44.9); Hemoglobin 13.5 g/dL (11.5-15.4); Immature Granulocytes % 0.5 % (0-4); Lymphocytes # 1.9 K/mcL (0.6-4.6); Mean Corpuscular HGB Conc 34.3 g/dL (31.6-35.5); Mean Corpuscular Hemoglobin 28.8 pg (28.0-33.3); Mean Corpuscular Volume 84.2 fL (83.0-100.0); Mean Platelet Volume 10.9 fL (9.4-12.4); Monocytes # 0.1 K/mcL (0.0-1.3); Monocytes % 2.2 %; Neutrophils # 4.4 K/mcL (1.6-8.9); Platelet Count 223 K/mcL (140-400); Red Blood Count 4.68 M/mcL (3.82-4.97); Red Cell Distribution Width 14.5 % (11.5-14.5); Segmented Neutrophils % 68.1 %
[2017-11-25 08:07] LABS: Potassium 4.3 mEq/L (3.5-5.1)
[2017-11-25] MEDS: Tiotropium 18 MCG inhalation IH SCH (08:27)
[2017-11-25] MEDS: Budesonide/Formoterol 160/4.5 MDI IH SCH ×2 (08:27→19:42)
[2017-11-25] MEDS: Pyridoxine (B-6) 50 MG TABLET PO SCH (10:01)
[2017-11-25] MEDS: Aspirin 81 MG TAB.CHEW PO SCH (10:01)
[2017-11-25] MEDS: Famotidine 20 MG TABLET PO SCH (10:01)
[2017-11-25] MEDS: Baclofen 10 MG TABLET PO SCH ×3 (10:02→21:36)
[2017-11-25] MEDS: Sennosides 8.6 MG TABLET PO SCH (10:02)
[2017-11-25] MEDS: Loratadine 10 MG TABLET PO SCH (10:02)
[2017-11-25] MEDS: Cholecalciferol (D-3) 1,000 UNIT TABLET PO SCH (10:02)
[2017-11-25] MEDS: Pregabalin 50 MG CAPSULE PO SCH (10:03)
[2017-11-25] MEDS: predniSONE 20 MG TABLET PO SCH (10:03)
[2017-11-25] MEDS: Nicotine 21 MG PATCH.TD24 TD SCH (10:04)
[2017-11-25] MEDS: Insulin LISPRO 300 UNITS/3 ML VIAL SQ SCH ×4 (10:04→21:38)
[2017-11-25] MEDS: Insulin DETEMIR 100 UNIT/ML X5UNITS SQ SCH (10:13)
[2017-11-25] MEDS ORDERED: 0.9 % Sodium Chloride 1,000 ML ONE ×2 (10:58→11:19)
[2017-11-25] MEDS ORDERED: Heparin 1,000 UNITS/500 mL 500 ML ONE (10:59)
[2017-11-25] MEDS ORDERED: Nitroglycerin 1,000 MCG/10 ML VIAL IV ONE (10:59)
[2017-11-25] MEDS ORDERED: *HR* Heparin 10,000 UNIT/10 ML VIAL ONE (10:59)
[2017-11-25] MEDS ORDERED: ISOVUE-370 200 ML INFUS..BTL IV ONE (10:59)
[2017-11-25] MEDS ORDERED: *HR* FentaNYL (PF) 100 MCG/2 ML VIAL ONE (11:19)
[2017-11-25] MEDS ORDERED: methylPREDNISolone 125 MG/2 ML VIAL ONE (11:19)
[2017-11-25] MEDS ORDERED: *HR* Midazolam HCl 2 MG/2 ML VIAL ONE ×2 (11:19→11:29)
--- NOTE | 2017-11-25 12:04 | Invasive Diagnostic Lab Proc ---
Name: Morenita Cutler Date of Study: 11/25/2017 Date: 1960 Ht: 65.0in Medical Record#: [id number] Age: 57 Wt: 210.54lb Gender: Female BSA: 2.02 Order #: [id number] BMI: 35.04 Physicians Procedure Physician: Elif Bhatti MD, [facility] Referring MD: Referring MD: Staff Name Position Time In Sites, Diya RT (R) Scrub 11:14 AM Diana Gerardo RT (R) Monitor 11:14 AM Ricarda Miller RN Plant Reliability Engineer 11:14 AM London Roa RT (R) Monitor 11:28 AM Jacqueline Aparicio RN Plant Reliability Engineer 11:28 AM Amanda Helton RT (R) Scrub 11:28 AM Indications Indication Cardiomyopathy Procedures Performed Procedure L HRT ARTERY/VENTRICLE ANGIO Pre-Procedure Checklist Informed consent is complete signed and on chart. H&P is on chart. ID band is on and ID verified with patient. Patient NPO for procedure The procedure was described for the patient and questions were answered. Blood Pressure: 147/88 ECG is on chart. Plan of Care Patient will tolerate the procedure without complications. Adequate level of comfort will be maintained. Hemodynamics will remain stable Patient will recover from procedure without complications. Respiratory function will be maintained. Cardiac rhythm will remain stable. Patient temperature will be maintained. Patient and/or family have verbalized understanding of the procedure. Patient Education Chief Complaint/Reason for Test: Cardiac Cath Developmental Category: Adult (18-64 years) Developmentally Appropriate for Age: Yes Learning Barriers: None Education Needs: Procedure Education Method: Verbal Information Taught: Cardiac Cath Educational Evaluation: Able to repeat information Intravenous Access Time IV Size Location DC'd Fluid/Drip Rate Units RN 11:31 AM 20g 1 1/4" Patent On Arrival Lt Arm 11:31 AM 20g 1 1/4" Patent On Arrival Rt Arm 0.9NaCl 25 ml/hr Jacqueline Aparicio RN Allergies IVP Dye Penicillins Sulfa (Sulfonamide Antibiotics) lisinopril furosemide SULFA,ERYTHROMYCIN,AMOXICILLIN PCN (penicillin) Erythromycin ampicillin Vital Signs Time BP (mmHg) HR (bpm) O2 Sat. RR (bpm) LOC 11:15 AM 147 / 88 86 100 % 18 5 = Fully awake and oriented or at pre-proc level 11:30 AM / % 4 = Oriented but drowsy 11:27 AM 147 / 88 77 100 % 11:33 AM 145 / 104 80 100 % 11:34 AM 130 / 95 80 100 % 11:39 AM 143 / 92 83 100 % 11:44 AM 140 / 88 80 99 % 11:49 AM 143 / 85 78 100 % 5 = Fully awake and oriented or at pre-proc level Procedural Medications Time Medication Dose Units Method Given By 11:26 AM Versed 1 mg Intravenous Jacqueline Aparicio RN 11:27 AM Fentanyl 25 mcg Intravenous Ricarda Miller RN 11:27 AM Solu-medrol 125 mg Intravenous Ricarda Miller RN 11:27 AM Benadryl 25 mg Intravenous Ricarda Miller RN 11:28 AM Oxygen 2 L/min nasal cannula Ricarda Miller RN 11:33 AM Lidocaine 2% 20 ml Subcutaneous Elif Bhatti MD, [facility] ASA Classification: CLASS II- Mild systemic disease (i.e. well-controlled diabetes, hypertension, asthma, cigarette smoking) Mally Score Preprocedure Postprocedure Activity 2- Moves 4 extremities sustained head lift Activity 2- Moves 4 extremities sustained head lift Circulation 2- SBP +/= 20 points of pre-anesthetic level Circulation 2- SBP +/= 20 points of pre-anesthetic level Consciousness 2- Awake and alert oriented x 3 Consciousness 2- Awake and alert oriented x 3 O2 Saturation 2- Able to maintain O2 satruation of 92% on room air O2 Saturation 2- Able to maintain O2 satruation of 92% on room air Respiratory 2- Able to deep breathe and cough well Respiratory 2- Able to deep breathe and cough well Total Score 10 Total Score 10 Contrast Agent: Isovue Diagnostic Contrast: 60 ml Total Contrast: 60 ml Fluoro Dose: 171 mGy Procedure Log Time Note Enter By 11:13 AM CathStat 11:14 AM Pt arrived to irrigation laborer 2 at 11:14 tsites 11:14 AM Diya Yates RT (R) Position: Scrub Time in: 11:14 tsites 11:14 AM Diana Gerardo RT (R) Position: Monitor Time in: 11:14 tsites 11:14 AM Ricarda Miller RN Position: Plant Reliability Engineer Time in: 11:14 tsites 11:14 AM Physician arrived 11:14 tsites 11:14 AM Meet and greet completed tsites 11:14 AM Sign in performed according to hospital policy. tsites 11:14 AM Procedure start 11:14 tsites 11:14 AM Patient charges- Angio tray pack, Navilyst 3mm J, Pulse Oximetry and ACIST tubing and transducer tsites 11:15 AM Time: 11:15 Patient comfortable and pain free: Yes tsites 11:15 AM Time: :15LOC: 5 = Fully awake and oriented or at pre-proc level tsites 11:26 AM Vitals capture started with the following parameters, Patient=Adult, Interval=5 min, Initial Bzvfluzq=314 mmHg, Deflation Rate=5 mmHg, Cuff placed on Right Arm 11: AM Hair removed from procedure site in holding area using clippers. Bilateral groin prepped with Chloraprep by Diana Gerardo RT (R), then patient was draped. Skin intact. tsites 11: AM Recorded ECG: HR=90 Condition=Condition 1 11: AM Time: Versed 1 mg Intravenous Given by Ricarda Miller RN tsites : AM Time: : Fentanyl 25 mcg Intravenous Given by Ricarda Miller RN tsites : AM Time: : Solu-medrol 125 mg Intravenous Given by Ricarda Miller RN tsites 11: AM HR=77 bpm, NNOX=597/88 mmhg, ShL1=435.0 % : AM Time: : Benadryl 25 mg Intravenous Given by Ricarda Miller RN tsites 11: AM Time: : Oxygen on at 2 L/min per nasal cannula by Ricarda Miller RN tsites 11:28 AM London Roa RT (R) Position: Monitor Time in: :28 to relieve Diana Gerardo RT (R) tsites 11:28 AM Jacqueline Aparicio RN Position: Plant Reliability Engineer Time in: :28 to relieve Ricarda Miller RN tsites 11:29 AM Amanda Helton RT (R) Position: Scrub Time in: 11:28 to relieve Trudy, Diya RT (R) tsites 11:30 AM Time: 11:15 Patient comfortable and pain free: Yes tsites 11:30 AM Time: 11:15LOC: 4 = Oriented but drowsy tsites 11:30 AM ASA Class CLASS II- Mild systemic disease (i.e. well-controlled diabetes, hypertension, asthma, cigarette smoking) tsites 11:30 AM Pressure channel 1 zero failed. 11:30 AM Pressure channel 1 zeroed. 11:31 AM Time out performed according to hospital policy tsites 11:33 AM HR=80 bpm, DLNR=758/104 mmhg, WzL2=670.0 % 11:33 AM Time: 20 ml Lidocaine 2% to right groin Subcutaneous Given by Elif Bhatti MD, [facility] tsites 11:33 AM Vitals capture stopped. 11:33 AM Vitals capture started with the following parameters, Patient=Adult, Interval=5 min, Initial Eefethrw=656 mmHg, Deflation Rate=5 mmHg, Cuff placed on Right Arm 11:34 AM HR=80 bpm, LUXQ=369/95 mmhg, NwB9=125.0 % 11:34 AM Unsuccessful access attempt # 1 into the right Femoral artery. Manual pressure applied to achieve hemostasis.. tsites 11:35 AM Unsuccessful access attempt # 2 into the right Femoral artery. Manual pressure applied to achieve hemostasis.. tsites 11:36 AM Access obtained by percutaneous puncture. 5Fr 10cm Terumo Wendel sheath placed in right Femoral artery. [id number] tsites 11:36 AM 0.035 145cm Navilyst 3mmJ wire [id number] tsites 11:36 AM 5Fr FL 4 catheter inserted over the wire [facility] tsites 11:36 AM LCA angiography performed in multiple views. tsites 11:37 AM Recorded Pressure: Ao, HR=77, Condition=Condition 1 (Aorta) Ao 126/85/103 11:38 AM Catheter removed tsites 11:38 AM 5Fr FR 4 catheter inserted over the wire [facility] tsites 11:39 AM Recorded Pressure: Ao, HR=82, Condition=Condition 1 (Aorta) Ao 156/65/96 11:39 AM HR=83 bpm, BSZP=261/92 mmhg, WlE4=966.0 % 11:39 AM RCA angiography performed in multiple views. tsites 11:40 AM Catheter removed tsites 11:40 AM 5Fr Pigtail catheter inserted over the wire [facility] tsites 11:40 AM Catheter selectively placed in left ventricle tsites 11:41 AM Pressure channel 1 zero failed. 11:41 AM Pressure channel 1 zeroed. 11:41 AM Recorded Pressure: LV, HR=82, Condition=Condition 1 (Left Ventricle) LV 120/33/40 11:41 AM Bolus angiogram of left Ventricle complete: 10 ml/sec for a total of 30 mls tsites 11:42 AM Recorded Pressure: LV, Ao, HR=82, Condition=Condition 1 (Left Ventricle) LV 121/45/83, (Aorta) Ao 111/59/84 11:42 AM Catheter removed tsites 11:42 AM Physician reviewing films tsites 11:42 AM Bolus angiogram of right Femoral complete: 4 ml/sec for a total of 7 mls tsites 11:43 AM Coronary Dominance: right tsites 11:44 AM Lesion found in Proximal LAD. Pre Stenosis: 20 Pre GEOFFREY Flow: tsites 11:44 AM HR=80 bpm, CYHZ=971/88 mmhg, SpO2=99.0 % 11:45 AM Time: 11:30LOC: 4 = Oriented but drowsy tsites 11:45 AM Time: 11:30 Patient comfortable and pain free: Yes tsites 11:45 AM Proximal Left Anterior Descending Coronary Artery with 20% stenosis. If graft is supplying this territory, 0 % stenosis. tsites 11:45 AM Lesion found in Mid RCA. Pre Stenosis: 30 Pre GEOFFREY Flow: tsites 11:46 AM Right Coronary, Right Posterior Descending Arteries with Right Posterolateral and Acute Marginal branches with 30 % stenosis. If graft is supplying this area, 0 % stenosis tsites 11:46 AM Lesion found in Proximal Circumflex. Pre Stenosis: 15 Pre GEOFFREY Flow: tsites 11:46 AM Circumflex, Obtuse Marginal, Left Posterior Descending, and Left Posterolateral Coronary Arteries with 15 % stenosis. If graft is supplying this area, 0 % stenosis tsites 11:46 AM Lesion found in Ramus. Pre Stenosis: 15 Pre GEOFFREY Flow: tsites 11:46 AM Ramus with 15% stenosis. If graft is supplying this area, 0 % stenosis tsites 11:46 AM What is the NYHA Class? Class 3 tsites 11:46 AM Arterial sheath pulled, Mynx closure device used and was Successful [id number] S/N. tsites 11:47 AM Procedure completed at 11:47 tsites 11:47 AM Sign out completed: Radiation Dose 170.95 mGy Fluoro Time: 0.9 Isovue 370 - 200ml contrast 60 ml given by Elif Bhatti MD, [facility]. Complications: NoneCardiac Rehab Consult needed: NoConfirmed administered medications: Yes tsites 11:47 AM Isovue 370 - 200ml,1 Bottle(s) used. tsites 11:47 AM Estimated Blood Loss: less than 20cc tsites 11:48 AM Post Blood Pressure 140/88 tsites 11:48 AM Information taught Cardiac Cath and Mynx tsites 11:48 AM Education needs Procedure, Plan of Care, and Disease Process tsites 11:48 AM Learning barriers :Sedated tsites 11:48 AM Education Methods Verbal tsites 11:48 AM Education evaluation Needs further instruction tsites 11:48 AM Delay to floor No tsites 11:48 AM No Family tsites 11:48 AM Complications: None tsites 11:48 AM Fluoro Time: 0.9 tsites 11:48 AM Isovue 370 - 200ml contrast 60 ml given by . tsites 11:49 AM Radiation Dose 170.95 mGy tsites 11:49 AM Site status No bleeding/hematoma - Rt Groin as reported by Amanda Helton RT (R) at 11:49 tsites 11:49 AM Opsite applied tsites 11:49 AM HR=78 bpm, LYVJ=990/85 mmhg, TtW7=704.0 % 11:52 AM Vitals capture stopped. 11:55 AM Report given to ivana DE LEON Pt taken to Room #34. 11:54 tsites 11:56 AM Patient out of room: 11:56 tsites 11:56 AM 11:56 Post Pulses Bilateral DP & PT 1+ tsites Complications Complication None None Hemodynamics Pressures Site Systolic/A Wave Diastolic/V Wave Mean AO 126 85 103 AO 156 65 96 LV 120 33 40 LV 121 45 83 AO 111 59 84 Post Procedure Information Blood Pressure: 140/88 mmHg Post procedural instructions were given Closure Device Time Device Success/Fail 11/25/2017 11:47:00 AM MynxGrip Successful Site Checks Time Location Status Staff Sheath In? Note 11:49 AM Rt Groin No bleeding/hematoma Amanda Helton RT (R) Pulses Time Site Pre-Procedure Post-Procedure Note 11/25/2017 11:31:00 AM Bilateral DP & PT 1+ 11:56:00 AM Bilateral DP & PT 1+ Updated by Diya Sites, RT (R) on 11/25/2017 11:57:09 AM Diya Yates RT electronically signed on 11/25/2017 11:57:36 AM with status of Final
--- NOTE | 2017-11-25 14:19 | Event Note ---
Date of Encounter: 11/25/17 Time of Encounter: 14:17 - Cardiology Event Note Echo EF 15-20%. [facility] today, NICMP, minimal CAD. Continue BB and ARB. Cardiology and EP signing off. Reconsult PRN. Will coordinate outpt follow-up. Once she remains drug free and compliant with medications for 3 months, recheck TTE and if EF remains <35%, would then recommend outpt BiV ICD insertion.
--- NOTE | 2017-11-25 17:09 | Internal Med Progress Note ---
Date of Encounter: 11/25/17 Time of Encounter: 17:07 - Assessment and plan (1) Chest pain Current Visit: Yes Status: Acute Assessment and plan: Patient has a history of GA in the past with no stent placement presented with chest pain which resolved after one sublingual nitroglycerin. She does have a history of cardiomyopathy with EF of 10% repeat echo EF 1520% with severely dilated left ventricle was seen by cardiology and underwent a cardiac catheter today-minimal CAT advising to continue beta ronald and are once patient remains drug-free and compliant with medications for 3 months cardiology recheck TTE and if remains less than 35% would recommend outpatient B IV ICD insertion. Continue with aspirin statin and Coreg Patient will need discharged to [place] inpatient rehabilitation licensed clinical social worker are making arrangements Qualifiers: Chest pain type: unspecified Qualified Code(s): R07.9 - Chest pain, unspecified (2) LBBB (left bundle branch block) Current Visit: No Status: Chronic Assessment and plan: This appears to be chronic present on EKG from 2012 (3) Abnormal kidney function Current Visit: Yes Status: Acute Assessment and plan: Patient reports prior history of CKD, follows with nephrology group in [facility]. Unsure of prior baseline. Presently creatinine is stable we will monitor overnight Avoid nephrotoxins (4) Diabetes mellitus Current Visit: Yes Status: Acute Assessment and plan: Continue sliding scale and basal insulin. Qualifiers: Diabetes mellitus type: type 2 Diabetes mellitus snf insulin use: without snf use Diabetes mellitus complication status: without complication Qualified Code(s): E11.9 - Type 2 diabetes mellitus without complications (5) Hypertension Current Visit: No Status: Chronic Assessment and plan: Blood pressure stable, continue medications continue to monitor. 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 UDS negative She has been informed that she would need to be free from drugs and compliant with medications for 3 months for potential Bi V ICD placement she verbalized understanding. She will be discharged to the [place] inpatient drug rehabilitation- licensed clinical social worker making arrangements (8) Tobacco abuse Current Visit: Yes Status: Acute Assessment and plan: History of tobacco abuse, discussed tobacco cessation. Continue nicotine patch (9) DVT prophylaxis Current Visit: Yes Status: Acute Assessment and plan: Continue subcutaneous heparin 5000 units twice a day (10) Acute on chronic HFrEF (heart failure with reduced ejection fraction) Current Visit: Yes Status: Chronic - Time Spent With Patient Total time spent is greater than 50% in coordination of care (as documented) at patient's floor/unit and/or counseling patient: - Subjective Interval history: This patient is new to me to review medical records. Patient was examined at bedside. She underwent cardiac catheterization today right groin access area is without any hematoma or bleeding at this time. Patient denies any chest pain. Patient is homeless anticipate return to [place] inpatient drug rehabilitation. conference services director are involved and are making arrangements - Constitutional Vitals: Temp Pulse Resp BP Pulse Ox 98.6 F 80 14 134/84 96 11/25/17 14:48 11/25/17 14:48 11/25/17 14:48 11/25/17 14:48 11/25/17 14:48 General appearance: Present: A&O X 3, morbidly obese - Head Head exam: Present: atraumatic, normocephalic - Eye Eye exam: Present: PERRL, conjuntiva pink, sclera anicteric Pupils: Present: PERRL - Neck Neck exam general surgery: Present: supple, trachea midline. Absent: lymphadenopathy - Respiratory Respiratory exam: Present: CTAB. Absent: accessory muscle use, rales, rhonchi, wheezes - Cardiovascular Cardiovascular exam: Present: RRR, +S1, +S2. Absent: diastolic murmur, gallop, rubs, systolic murmur - GI/Abdominal GI/Abdominal exam: Present: normal bowel sounds, soft, no peritoneal signs. Absent: distended, tenderness - Extremities Exam Extremities exam: Present: warm, radial pulses palpable and symmetrical. Absent : calf tenderness, cyanotic, pedal edema - Neurological Exam Neurological exam: Present: CN II-XII intact, oriented X3, no focal deficits. Absent: pronater drift, facial droop, speech deficit - Skin Skin exam: Present: dry, intact Internal Medicine: Result - Labs CBC & Chem 7: 11/25/17 06:57 11/25/17 06:57 Labs: Short CBC 11/25/17 Range/Units 06:57 WBC 6.4 (4.3-11.1) K/mcL Hgb 13.5 (11.5-15.4) g/dL Hct 39.4 (35.3-44.9) % Plt Count 223 (140-400) K/mcL Neutrophils # 4.4 (1.6-8.9) K/mcL BMP 11/25/17 06:57 Sodium 134 L Potassium 4.3 Chloride 105 Carbon Dioxide 19 L BUN 26 H Creatinine 1.26 H Glucose 276 H Calcium 10.0 - ABG Interpretation ABG results: PT/INR, D-dimer PT 10.2 Seconds (9.4-12.1) 11/22/17 21:27 Consult Discharge Plan - Plan Referrals: [facility] [Primary Care Provider] - 12/02/17 11:00 am
[2017-11-25] MEDS: traZODone 50 MG TABLET PO SCH (21:36)
[2017-11-25] MEDS: Melatonin 3 MG TABLET PO SCH (21:36)
[2017-11-26 05:09] LABS: Basophils % 0.1 %; Hematocrit 37.6 % (35.3-44.9); Hemoglobin 12.8 g/dL (11.5-15.4); Immature Granulocytes % 0.6 % (0-4); Lymphocytes # 3.6 K/mcL (0.6-4.6); Lymphocytes % 25.1 %; Mean Corpuscular Hemoglobin 28.8 pg (28.0-33.3); Mean Corpuscular Volume 84.7 fL (83.0-100.0); Mean Platelet Volume 11.3 fL (9.4-12.4); Monocytes # 1.1 K/mcL (0.0-1.3); Monocytes % 7.8 %; Neutrophils # 9.6 K/mcL (1.6-8.9); Platelet Count 199 K/mcL (140-400); Red Blood Count 4.44 M/mcL (3.82-4.97); Red Cell Distribution Width 14.6 % (11.5-14.5); Segmented Neutrophils % 66.4 %
[2017-11-26 05:32] LABS: Calcium 9.5 mg/dL (8.6-10.3); Potassium 4.3 mEq/L (3.5-5.1)
[2017-11-26] MEDS: *HR* Heparin 5,000 UNIT/ML VIAL SQ SCH ×3 (06:06→20:47)
[2017-11-26] MEDS: Budesonide/Formoterol 160/4.5 MDI IH SCH ×2 (07:31→20:58)
[2017-11-26] MEDS: Tiotropium 18 MCG inhalation IH SCH (07:31)
[2017-11-26] MEDS: Aspirin 81 MG TAB.CHEW PO SCH (08:44)
[2017-11-26] MEDS: Baclofen 10 MG TABLET PO SCH ×3 (08:45→20:48)
[2017-11-26] MEDS: Loratadine 10 MG TABLET PO SCH (08:45)
[2017-11-26] MEDS: Famotidine 20 MG TABLET PO SCH (08:45)
[2017-11-26] MEDS: Cholecalciferol (D-3) 1,000 UNIT TABLET PO SCH (08:45)
[2017-11-26] MEDS: Pyridoxine (B-6) 50 MG TABLET PO SCH (08:45)
[2017-11-26] MEDS: Pregabalin 50 MG CAPSULE PO SCH (08:46)
[2017-11-26] MEDS: Insulin DETEMIR 100 UNIT/ML X5UNITS SQ SCH (08:51)
[2017-11-26] MEDS: Insulin LISPRO 300 UNITS/3 ML VIAL SQ SCH ×4 (08:52→20:46)
[2017-11-26] MEDS: Nicotine 21 MG PATCH.TD24 TD SCH (08:53)
[2017-11-26] MEDS: Sennosides 8.6 MG TABLET PO SCH (08:53)
[2017-11-26 11:06] LABS: Bilirubin,Urine Negative (Negative); Blood,Urine Negative (Negative); Clarity,Urine Clear (Clear); Color,Urine Yellow (Yellow); Glucose,Urine (UA) Normal (Normal); Ketones,Urine Negative (Negative); Leukocyte Esterase,Urine Moderate (Negative); Nitrite,Urine Negative (Negative); Protein,Urine Negative (Neg-Trace); Specific Gravity,Urine 1.016 (1.010-1.025); Urobilinogen,Urine Normal (Normal)
[2017-11-26 11:27] LABS: RBC,Urine 0-3 per hpf (0-3); WBC,Urine 15-30 per hpf (0-3)
[2017-11-26 11:28] LABS: Bacteria,Urine Moderate per hpf (None-Few); Mucus,Urine Few (Few); Renal Epithelial Cells,Urine Few per hpf (None-Few); Squamous Epithelial Cell,Urine Moderate per lpf (None-Few); Transitional Epi Cells,Urine Few per hpf (None-Few)
[2017-11-26] MEDS ORDERED: 0.9 % Sodium Chloride 500 ML IVC SCH (15:45)
--- NOTE | 2017-11-26 19:32 | Internal Med Progress Note ---
Date of Encounter: 11/26/17 Time of Encounter: 14:00 - Assessment and plan (1) Chest pain Current Visit: Yes Status: Acute Assessment and plan: Patient has a history of MA in the past with no stent placement presented with chest pain which resolved after one sublingual nitroglycerin. She does have a history of cardiomyopathy with EF of 10% repeat echo EF 15-20% with severely dilated left ventricle was seen by cardiology and underwent a cardiac catheter today-minimal CAT advising to continue beta ronald and are once patient remains drug-free and compliant with medications for 3 months cardiology recheck TTE and if remains less than 35% would recommend outpatient B IV ICD insertion. Continue with aspirin statin and Coreg Patient will need discharged to [place] inpatient rehabilitation health care social worker are making arrangements Qualifiers: Chest pain type: unspecified Qualified Code(s): R07.9 - Chest pain, unspecified (2) LBBB (left bundle branch block) Current Visit: No Status: Chronic Assessment and plan: This appears to be chronic present on EKG from 2012 (3) Abnormal kidney function Current Visit: Yes Status: Acute Assessment and plan: Patient reports prior history of CKD, follows with nephrology group in [facility]. Unsure of prior baseline. Gave small amount of IV fluid Presently creatinine is stable we will monitor overnight Avoid nephrotoxins (4) Diabetes mellitus Current Visit: Yes Status: Acute Assessment and plan: Continue sliding scale and basal insulin. Qualifiers: Diabetes mellitus type: type 2 Diabetes mellitus snf insulin use: without snf use Diabetes mellitus complication status: without complication Qualified Code(s): E11.9 - Type 2 diabetes mellitus without complications (5) Hypertension Current Visit: No Status: Chronic Assessment and plan: Blood pressure stable, continue medications continue to monitor. 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 UDS negative She has been informed that she would need to be free from drugs and compliant with medications for 3 months for potential Bi V ICD placement she verbalized understanding. She will be discharged to the [place] inpatient drug rehabilitation- health care social worker making arrangements (8) Tobacco abuse Current Visit: Yes Status: Acute Assessment and plan: History of tobacco abuse, discussed tobacco cessation. Continue nicotine patch (9) DVT prophylaxis Current Visit: Yes Status: Acute Assessment and plan: Continue subcutaneous heparin 5000 units twice a day (10) Acute on chronic HFrEF (heart failure with reduced ejection fraction) Current Visit: Yes Status: Chronic Assessment and plan: Continue carvedilol and losartan (11) Leukocytosis Current Visit: Yes Status: Acute Assessment and plan: Most likely from steroid use- U/A obtained- did show slight UTI- does have some urgency. will recheck in am - treat UTI- cipro Qualifiers: Leukocytosis type: unspecified Qualified Code(s): D72.829 - Elevated white blood cell count, unspecified (12) UTI (urinary tract infection) Current Visit: Yes Status: Acute Assessment and plan: had elevated WBC most likely rt steroid use, Slight UTI- some sx of urgency- will start on Cipro Qualifiers: Urinary tract infection type: acute cystitis Hematuria presence: without hematuria Qualified Code(s): N30.00 - Acute cystitis without hematuria - Time Spent With Patient Total time spent is greater than 50% in coordination of care (as documented) at patient's floor/unit and/or counseling patient: - Subjective Interval history: I examined the patient at bedside denies any pain or discomfort. Patient has slightly elevated creatinine and WBC. Will monitor overnight and if stable will d/d in AM Reviewed plan with patient and case manger. Verbalize understanding and agreement - Constitutional Vitals: Temp Pulse Resp BP Pulse Ox 98.8 F 75 16 129/84 95 11/26/17 18:43 11/26/17 18:43 11/26/17 18:43 11/26/17 18:43 11/26/17 18:43 General appearance: Present: A&O X 3, morbidly obese - Head Head exam: Present: atraumatic, normocephalic - Eye Eye exam: Present: PERRL, conjuntiva pink, sclera anicteric Pupils: Present: PERRL - Neck Neck exam general surgery: Present: supple, trachea midline. Absent: lymphadenopathy - Respiratory Respiratory exam: Present: CTAB. Absent: accessory muscle use, rales, rhonchi, wheezes - Cardiovascular Cardiovascular exam: Present: RRR, +S1, +S2. Absent: diastolic murmur, gallop, rubs, systolic murmur - GI/Abdominal GI/Abdominal exam: Present: normal bowel sounds, soft, no peritoneal signs. Absent: distended, tenderness - Extremities Exam Extremities exam: Present: warm, radial pulses palpable and symmetrical. Absent : calf tenderness, cyanotic, pedal edema - Neurological Exam Neurological exam: Present: CN II-XII intact, oriented X3, no focal deficits. Absent: pronater drift, facial droop, speech deficit - Skin Skin exam: Present: dry, intact Internal Medicine: Result - Labs CBC & Chem 7: 11/26/17 03:58 11/26/17 03:58 Labs: Short CBC 11/26/17 Range/Units 03:58 WBC 14.4 H D (4.3-11.1) K/mcL Hgb 12.8 (11.5-15.4) g/dL Hct 37.6 (35.3-44.9) % Plt Count 199 (140-400) K/mcL Neutrophils # 9.6 H (1.6-8.9) K/mcL BMP 11/26/17 03:58 Sodium 134 L Potassium 4.3 Chloride 106 Carbon Dioxide 21 L BUN 30 H Creatinine 1.39 H Glucose 218 H Calcium 9.5 Urine 11/26/17 Range/Units 10:55 Urine Color Yellow (Yellow) Urine Clarity Clear (Clear) Urine pH 6.0 (5.0-8.0) pH Units Ur Specific Freeman 1.016 (1.010-1.025) Urine Protein Negative (Neg-Trace) mg/dL Urine Glucose (UA) Normal (Normal) mg/dL - ABG Interpretation ABG results: PT/INR, D-dimer PT 10.2 Seconds (9.4-12.1) 11/22/17 21:27 Consult Discharge Plan - Plan [facility]errals: [facility] Provider[facility] - 12/02/17 11:00 am
[2017-11-26] MEDS: Melatonin 3 MG TABLET PO SCH (20:47)
[2017-11-26] MEDS: traZODone 50 MG TABLET PO SCH (20:48)
[2017-11-27] MEDS: *HR* Heparin 5,000 UNIT/ML VIAL SQ SCH ×2 (05:17→15:02)
[2017-11-27 06:12] LABS: Basophils # 0.1 K/mcL (0.0-0.2); Basophils % 0.5 %; Eosinophils # 0.1 K/mcL (0.0-0.6); Eosinophils % 1.2 %; Hematocrit 36.8 % (35.3-44.9); Immature Granulocytes % 0.2 % (0-4); Lymphocytes # 5.3 K/mcL (0.6-4.6); Lymphocytes % 54.9 %; Mean Corpuscular HGB Conc 35.3 g/dL (31.6-35.5); Mean Corpuscular Hemoglobin 30.1 pg (28.0-33.3); Mean Corpuscular Volume 85.2 fL (83.0-100.0); Mean Platelet Volume 10.8 fL (9.4-12.4); Monocytes # 0.8 K/mcL (0.0-1.3); Monocytes % 8.3 %; Neutrophils # 3.4 K/mcL (1.6-8.9); Platelet Count 196 K/mcL (140-400); Red Blood Count 4.32 M/mcL (3.82-4.97); Red Cell Distribution Width 14.7 % (11.5-14.5); Segmented Neutrophils % 34.9 %
[2017-11-27 06:26] LABS: Calcium 9.7 mg/dL (8.6-10.3); Potassium 4.3 mEq/L (3.5-5.1)
[2017-11-27] MEDS: Tiotropium 18 MCG inhalation IH SCH (08:03)
[2017-11-27] MEDS: Budesonide/Formoterol 160/4.5 MDI IH SCH (08:03)
[2017-11-27] MEDS: Insulin LISPRO 300 UNITS/3 ML VIAL SQ SCH ×2 (08:06→12:07)
[2017-11-27] MEDS: Cholecalciferol (D-3) 1,000 UNIT TABLET PO SCH (08:07)
[2017-11-27] MEDS: Pregabalin 50 MG CAPSULE PO SCH (08:07)
[2017-11-27] MEDS: Famotidine 20 MG TABLET PO SCH (08:07)
[2017-11-27] MEDS: Baclofen 10 MG TABLET PO SCH ×2 (08:07→15:01)
[2017-11-27] MEDS: Aspirin 81 MG TAB.CHEW PO SCH (08:07)
[2017-11-27] MEDS: Loratadine 10 MG TABLET PO SCH (08:07)
[2017-11-27] MEDS: Pyridoxine (B-6) 50 MG TABLET PO SCH (08:07)
[2017-11-27] MEDS: Sennosides 8.6 MG TABLET PO SCH (08:08)
[2017-11-27] MEDS: Nicotine 21 MG PATCH.TD24 TD SCH (08:08)
[2017-11-27] MEDS: Insulin DETEMIR 100 UNIT/ML X5UNITS SQ SCH (08:17)
[2017-11-27 11:52] VITALS: BP 153/88
--- NOTE | 2017-11-27 14:40 | Discharge Summary ---
- NOTES TO OUTPATIENT PROVIDER Notes to Outpatient Provider: Per cardiology Echo EF 15-20%. LHC , NICMP, minimal CAD. Continue BB and ARB. Will coordinate outpt follow-up. Once she remains drug free and compliant with medications for 3 months, recheck TTE and if EF remains <35%, would then recommend outpt BiV ICD insertion. Date of Encounter: 11/27/17 Time of Encounter: 14:38 - Discharge Diagnosis (1) Chest pain Priority: Primary Status: Acute Qualifiers: Chest pain type: unspecified Qualified Code(s): R07.9 - Chest pain, unspecified (2) LBBB (left bundle branch block) Priority: Secondary Status: Chronic (3) Abnormal kidney function Priority: Secondary Status: Acute (4) Diabetes mellitus Priority: Secondary Status: Acute Qualifiers: Diabetes mellitus type: type 2 Diabetes mellitus terminal operations manager insulin use: without terminal operations manager use Diabetes mellitus complication status: without complication Qualified Code(s): E11.9 - Type 2 diabetes mellitus without complications (5) Hypertension Priority: Secondary Status: Chronic Qualifiers: Hypertension type: essential hypertension Qualified Code(s): I10 - Essential (primary) hypertension (6) Depression Priority: Secondary Status: Acute Qualifiers: Depression Type: unspecified Qualified Code(s): F32.9 - Major depressive disorder, single episode, unspecified (7) Substance abuse Priority: Secondary Status: Acute (8) Tobacco abuse Priority: Secondary Status: Acute (9) Acute on chronic HFrEF (heart failure with reduced ejection fraction) Priority: Secondary Status: Chronic (10) Leukocytosis Priority: Secondary Status: Acute Qualifiers: Leukocytosis type: unspecified Qualified Code(s): D72.829 - Elevated white blood cell count, unspecified Hospital course: Ms. Cutler is a 57 year old female PMH cardiomyopathy LBB DM HTN hep C substance abuse presented to [facility] c/o CP dyspnea transferred from [place] [facility] facility treated for cocaine abuse for approx past 5-6 weeks. EKG show NSR with LBB which is chronic has orthopnea previous echo 2012 demonstrated EF 10% with no significant valvular heart disease.echocardiogram just a few weeks ago that again demonstrated EF 10% She had a cardiac cath few yrs ago at [facility] "no blockags Repeat echo 11/24/2017 LVEF 15-20% She was seen by Cardiology and underwent [facility] miniml CAD. cardiology recommends continue BB and ARB. Cardiology will coordinate outpt follow-up. Once she remains drug free and compliant with medications for 3 months, recheck TTE and if EF remains <35%, would then recommend outpt BiV ICD insertion. She was given prednisone prior to cardiac cath dt hx of allergy- Patient reports hx of CKD and follow nephrology out of [place]. Unsure of creatinine baseline however appears to be stable . VS remained stable No bleeding or hematoma at access site. UA was completed intially appeared- UTI however culture showed contamination- no urinary sx voiced no fever No WBC She is to be discharged back to [place] [facility] and advised her to continue BB ARB per cardiology recommendation and follow up with PCP. Patient verbalized understanding Discharge discussed with: patient - Time Spent with Patient Total time spent providing and/or coordinating discharge services: - Discharge Medications Home Medications: Acetaminophen [Non-Aspirin] 650 mg PO TID PRN 11/23/17 [History] Albuterol Sulfate [Albuterol Inhaler] 2 puff IH Q4HR PRN 11/23/17 [History] Baclofen [Lioresal] 5 mg PO TID 11/23/17 [History] Budesonide/Formoterol 160/4.5 [Symbicort 160/4.5] 2 puff IH BIDR 11/23/17 [ History] Carvedilol 12.5 mg PO BID 11/23/17 [History] Cetirizine HCl [Zyrtec] 10 mg PO DAILY 11/23/17 [History] Cholecalciferol (Vitamin D3) [Vitamin D3] 2,000 unit PO DAILY 11/23/17 [History] Docusate Sodium [Dulcolax Stool Softener] 100 mg PO DAILY 11/23/17 [History] Famotidine [Acid Controller] 20 mg PO DAILY 11/23/17 [History] GuaiFENesin/Dextromethorphan [Robitussin/Dm] 10 ml PO Q6HR 11/23/17 [History] Hydrophilic Cream [Triad] 170 gm TP DAILY 11/23/17 [History] Insulin Glargine [Lantus] 32 unit SQ DAILY 11/23/17 [History] Insulin Human Regular [HumuLIN R] 0 unit SQ TID PRN 11/23/17 [History] Lactobacillus Acidophilus [Acidophilus Lactobacillus] 1 each PO DAILY 11/23/17 [ History] Losartan [Cozaar] 25 mg PO DAILY 11/23/17 [History] Loxapine Succinate [Loxapine] 30 mg PO HS 11/23/17 [History] Magnesium Oxide [Magnesium] 400 mg PO BID 11/23/17 [History] Melatonin 9 mg PO HS 11/23/17 [History] Polyethylene Glycol 400 1 drop BOTH EYES QID 11/23/17 [History] Pregabalin [Lyrica] 150 mg PO BID 11/23/17 [History] Pyridoxine (B-6) [Vitamin B-6] 50 mg PO DAILY 11/23/17 [History] Sennosides [Laxative] 17.2 mg PO DAILY 11/23/17 [History] Tiotropium [Spiriva] 18 mcg IH DAILY 11/23/17 [History] Topiramate [Topamax] 50 mg PO HS 11/23/17 [History] Vitamin E (Dl,Tocopheryl Acet) [Vitamin E] 400 unit PO DAILY 11/23/17 [History] hydrOXYzine pamoate [HydrOXYzine Pamoate] 25 mg PO TID 11/23/17 [History] traZODone [TraZODone] 150 mg PO HS 11/23/17 [History] Allergies/Adverse Reactions: 3 Allergy/AdvReac Type Severity Reaction Status Date / Time ampicillin Allergy See Verified 11/23/17 00:39 Comments cephalexin Allergy See Verified 11/23/17 00:39 Comments Erythromycin Base Allergy See Verified 11/23/17 00:39 Comments furosemide Allergy See Verified 11/23/17 00:39 Comments lisinopril Allergy See Verified 11/23/17 00:39 Comments metformin Allergy See Verified 11/23/17 00:41 Comments Penicillins Allergy See Verified 11/23/17 00:39 Comments Sulfa (Sulfonamide Allergy See Verified 11/23/17 00:39 Antibiotics) Comments contrast media Allergy See Uncoded 11/23/17 00:41 Comments Date of admission: 11/22/17 22:38 [facility] care physician: [facility] Consults: 11/22/17 23:05 Consult to Cardiology [CONS] Routine Comment: Consulting Provider: [facility] Reason for Consult: chest pain. LBBB, likely old but patient state that she recently was told her EF is 10%. Symptosm of heart failure. Call Completed: No 11/24/17 08:35 Consult to Nurse Navigator [CONS] Routine Comment: EF 10%, COCA[facility], [facility] 11/25/17 14:18 Consult to Electrophysiology (EP) [CONS] Routine Consulting Provider: Randa Mcnally Reason for Consult: ICD evaluation Call Completed: Yes Discharging clinician: Sarahi Pa Anticipated date of discharge: 11/27/17 - Constitutional Vitals: Temp Pulse Resp BP Pulse Ox 98.9 F 67 18 153/88 96 11/27/17 11:51 11/27/17 11:51 11/27/17 11:51 11/27/17 11:51 11/27/17 11:51 General appearance: Present: A&O X 3, morbidly obese - Head Head exam: Present: atraumatic, normocephalic - Eye Eye exam: Present: PERRL, conjuntiva pink, sclera anicteric Pupils: Present: PERRL - Neck Neck exam general surgery: Present: supple, trachea midline. Absent: lymphadenopathy - Respiratory Respiratory exam: Present: CTAB. Absent: accessory muscle use, rales, rhonchi, wheezes - Cardiovascular Cardiovascular exam: Present: RRR, +S1, +S2. Absent: diastolic murmur, gallop, rubs, systolic murmur - GI/Abdominal GI/Abdominal exam: Present: normal bowel sounds, soft, no peritoneal signs. Absent: distended, tenderness - Extremities Exam Extremities exam: Present: warm, radial pulses palpable and symmetrical. Absent : calf tenderness, cyanotic, pedal edema - Neurological Exam Neurological exam: Present: CN II-XII intact, oriented X3, no focal deficits. Absent: pronater drift, facial droop, speech deficit - Skin Skin exam: Present: dry, intact - Patient Status Disposition: Home, Self-Care Condition: Good Functional capacity at discharge: independent ambulation Overall status at discharge: patient is back to baseline - Discharge Instructions Instructions: Chest Pain (DC) Follow Up With: [facility] [Primary Care Provider] - 12/02/17 11:00 am Additional Instructions: RISK FACTORS: STOP SMOKING: If you smoke, STOP. Smoking or tobacco use significantly increases your risk of heart disease because nicotine causes the arteries to narrow or constrict. It also causes fats to stick to the artery. Your chances of having a heart attack are greatly increased if you continue to smoke. For more information, call the education line for smoking cessation 4-056-KOFSXQT EAT A LOW FAT/CHOLESTEROL/SODIUM DIET: This diet may help reduce your chances of having a heart attack. LIFTING: Avoid lifting anything more than 10 pounds for 5-7 days Prior to straining, laughing, sneezing and/or coughing, apply manual pressure directly over insertion site. ACTIVITY: You may walk or climb stairs as tolerated You can resume sexual activity as tolerated In general, you are encouraged to engage in a minimum of 30 minutes or more of moderate intensity physical activity, such as brisk walking, daily or at least 3 -4 times weekly BATHING Do not submerge the site into water (bath tub, hot tub, swimming pool) for 1 week. This can be a source for infection into the blood stream. You may shower after 24 hours SITE CARE: After 24 hours, you may remove the dressing and leave the site open to air. Keep the site clean and dry. Clean gently and pat dry. You can expect bruising and tenderness that gradually resolve within a week or two. Return to work as instructed per your physician Resume driving as instructed per physician Keep all scheduled follow up appointments Resume medications as instructed IMPORTANT: If prescribed a Platelet Aggregation Inhibitor such as, Plavix, Brilinta or Effient: Duration of therapy is minimum one year These medications are often used in combination with Aspirin in prevention of future heart attacks Never discontinue unless consult with your Crm Consultant STROKE (CVA) Risk factors for a stroke are: Age, cigarette smoking, diabetes, excessive alcohol consumption, family history, high blood pressure, overweight, physical inactivity, prior stroke, heart attack, diagnosis of carotid artery stenosis or other artery disease. Warning signs: Sudden numbness or weakness of the face, arm or leg; especially on one side of the body, sudden confusion, trouble speaking or understanding, sudden trouble seeing in one or both eyes, sudden trouble walking, dizziness, loss of balance or coordination, sudden severe headache with no cause. Call 911 or go to the Emergency Room. CONGESTIVE HEART FAILURE: If you have been diagnosed with Congestive Heart Failure (CHF) and your symptoms return, make an appointment with your physician Weigh yourself daily. Notify your physician if you have a weight gain of two or more pounds in one day or five or more pounds in one week. If you experience any difficulty breathing, please call 911 BLEEDING: Although the risk of bleeding is minimal, it can happen. If you have any bleeding from the site, apply firm pressure above the puncture site for 10-15 minutes. If the bleeding does not stop, continue manual pressure and call 911 Contact your physician if: You develop a fever greater than 101 degrees Fahrenheit Your site becomes reddened or has any drainage You have an increase in pain or burning at the site or if a large knot forms at the site. If you experience chest pain, shortness of breath, dizziness, or extreme tiredness, stop the activity and rest. Please notify your physicians office if you experience any of these symptoms and they are not relieved by rest please call 911! - Diet and Activity Activity: increase activity as tolerated Diet: low fat, low cholesterol
== END 2017-11-27 15:32 | disposition home or self-care (01) | DRG 286 ==
LOC: EMEROO 20:39 → 3BNU 22:38
PROVIDERS: ADMIT Family Medicine; ATTEND Family Medicine

== ENCOUNTER 2018-08-07 13:08 | Observation (INO) ==
--- NOTE | 2018-08-07 13:29 | Emergency Department Note ---
Disposition Clinical Impression: NSTEMI (non-ST elevated myocardial infarction), Hypokalemia, Cocaine use Disposition: Admitted As Inpatient Condition: Fair Chest Pain HPI - General Chief Complaint: ED Chest Pain Stated Complaint: CP/SOB/OSVALDO Source: patient, EMS Mode of arrival: EMS Limitations: no limitations Vital Signs Reviewed: Yes Nursing Notes Reviewed: Yes - History of Present Illness HPI Narrative: 57-year-old female with past medical history including type 2 diabetes mellitus, hypertension, hyperlipidemia, cardiomyopathy and heart failure with defibrillator/pacemaker placed in March 2018, presenting with chest pain and elevated troponin from urgent care at 1300 today. Patient states she stopped all her medications 3 weeks ago as she was feeling very depressed. Since yesterday, the patient complains of nausea and multiple episodes of nonbilious nonbloody vomiting. She states today she woke up with substernal chest pain that was sharp in a burning feeling that was nonradiating. Chest pain was associated with nausea and vomiting and shortness of breath. She went to urgent care to be evaluated. Troponin was 0.059. She received 3 nitroglycerin that resolved her chest pain and she was transferred here for further evaluation and admission. Of note, EMS states the patient took cocaine 2 days ago in her urine drug screen obtained at urgent care today was positive for cocaine. Patient states she is depressed however she denies suicidal ideation or attempt. Severity scale (1-10): 6 - Related Data Home Medications Medication Instructions Recorded Confirmed RX: Acetaminophen [Non-Aspirin] 1,000 mg PO TID PRN 11/23/17 03/26/18 RX: Budesonide/Formoterol 160/4.5 2 puff IH BIDR 11/23/17 03/26/18 [Symbicort 160/4.5] RX: Carvedilol 25 mg PO DAILY 11/23/17 03/26/18 RX: Cetirizine HCl [Zyrtec] 10 mg PO DAILY 11/23/17 03/26/18 RX: Cholecalciferol (Vitamin D3) 1,000 unit PO DAILY 11/23/17 03/26/18 [Vitamin D3] RX: Docusate Sodium [Dulcolax 100 mg PO DAILY 11/23/17 03/26/18 Stool Softener] RX: Famotidine [Acid Controller] 20 mg PO DAILY 11/23/17 03/26/18 RX: Loxapine Succinate [Loxapine] 30 mg PO HS 11/23/17 03/26/18 RX: Magnesium Oxide [Magnesium] 400 mg PO DAILY 11/23/17 03/26/18 RX: Melatonin 3 mg PO HS 11/23/17 03/26/18 RX: Pregabalin [Lyrica] 150 mg PO DAILY 11/23/17 03/26/18 RX: Tiotropium [Spiriva] 18 mcg IH BID 11/23/17 03/26/18 RX: Topiramate [Topamax] 50 mg PO BID 11/23/17 03/26/18 RX: Vitamin E (Dl,Tocopheryl Acet) 400 unit PO DAILY 11/23/17 03/26/18 [Vitamin E] RX: hydrOXYzine pamoate 25 mg PO BID 11/23/17 03/26/18 [HydrOXYzine Pamoate] RX: traZODone [TraZODone] 150 mg PO HS 11/23/17 03/26/18 RX: Insulin ASPART [NovoLOG] 2 - 8 unit SQ Q6HR 03/26/18 03/26/18 RX: Pyridoxine HCl [Vitamin B-6] 50 mg PO DAILY 03/26/18 03/26/18 Allergies Allergy/AdvReac Type Severity Reaction Status Date / Time ampicillin Allergy See Verified 08/07/18 13:15 Comments cephalexin Allergy See Verified 08/07/18 13:15 Comments Erythromycin Base Allergy See Verified 08/07/18 13:15 Comments lisinopril Allergy See Verified 08/07/18 13:15 Comments Penicillins Allergy See Verified 08/07/18 13:15 Comments Sulfa (Sulfonamide Allergy See Verified 08/07/18 13:15 Antibiotics) Comments All systems ED: reviewed and negative except as stated. Review of Systems: As Per HPI Constitutional: Denies: fever, chills Cardiovascular: Reports: chest pain. Denies: palpitations Respiratory: Reports: dyspnea. Denies: cough Gastrointestinal: Reports: nausea, vomiting. Denies: abdominal pain, diarrhea Genitourinary: Denies: dysuria Neurological: Denies: headache, weakness Chest Pain PMH - Past Medical History Medical history: Reports: cardiomyopathy, CHF, diabetes, hepatitis, hyperlipidemia, hypertension Surgical history: Reports: hysterectomy Psychiatric history: Reports: anxiety, depression, prior suicide attempt, previous psychiatric hospitalization - Social History Smoking Status: Current every day smoker Alcohol use: Reports: none Drug use: Reports: none, other Physical Exam - General Limitations: no limitations General appearance: alert, in no apparent distress - Head Head exam: atraumatic, normocephalic - Eye Eye exam: Present: normal appearance, PERRL, EOMI, scleral icterus - ENT ENT exam: mucous membranes moist, other (tardive dyskinesia) - Neck Neck exam: Present: normal inspection, trachea midline - Chest Chest inspection: Present: normal inspection, symmetric chest wall rise. Absent: tenderness - Respiratory Respiratory exam: Present: normal lung sounds bilaterally. Absent: respiratory distress, wheezes - Cardiovascular Cardiovascular exam: Present: normal rhythm, tachycardia, normal heart sounds - Abdominal Exam Abdominal exam: Present: soft, Non-Tender. Absent: distention - Extremities Exam Extremities exam: Present: normal inspection, full ROM, normal capillary refill. Absent: pedal edema, calf tenderness - Neurological Exam Neurological exam: Present: alert, oriented X3 - Psychiatric Psychiatric exam: Present: depressed. Absent: suicidal ideation - Skin Skin exam: Present: warm, dry, intact. Absent: cyanosis, diaphoresis Course Vital Signs O2 Sat by Pulse Oximetry 97 08/07/18 13:16 Temperature 98.7 F 08/07/18 13:22 Pulse Rate 87 08/07/18 14:12 Respiratory Rate 28 08/07/18 14:12 Blood Pressure 124/84 08/07/18 14:12 O2 Sat by Pulse Oximetry 100 08/07/18 14:12 Oxygen Delivery Oxygen Delivery Room Air Chest Pain - [facility] Narrative Medical decision making narrative: Patient presenting from urgent care with chest pain that resolved with 3 nitroglycerin, elevated troponin of 0.059. Patient states chest pain is resolved. We will obtain repeat EKG, PT/INR/PTT, initiate heparin, admit the patient for NSTEMI. Labs from urgent care reviewed. She had a urine drug screen that was positive for cocaine. Urinalysis negative for infection. Troponin 0.059. Calcium 9.7. Sodium 133. Potassium 3.0. Glucose 262. BUN 12 creatinine 1.67. GFR 40.7. Hemoglobin 16.7. Hematocrit 49.5. Platelet count 195. WBC 8.9. Chest x-ray was obtained and shows stable cardiomegaly, no infiltrates or consolidation or pleural effusion noted. Interventional cardiology, Dr. Varela, consulted at 1330. EKG obtained at our facility shows ST elevation of 4 boxes and V2 and ST elevation of 3 boxes and V3. These are not new compared to her old EKG on 03/26/2018. Discussed with him at 1335. As the patient is on cocaine, prior cardiac catheterization done in November 2017 reviewed, patient most likely does not have ischemic cardiomyopathy. She does have a pacemaker defibrillator placed for low ejection fraction. Patient's heart rate is also increased from her baseline which can also cause an increase in the ST elevation with ventricular paced rhythm. Dr. Varela recommends pain control, blood pressure and rate control, repeat troponin and repeat EKG which we will obtain at this time. Avoid beta blockers as she has recent beta ronald use. Patient does state her chest pain is returning so we will place on nitro drip. Repeat EKG obtained at [address] elevation or depression. No acute changes compared to prior EKG at 1318. Nitro drip resolved the patient's chest pain. Repeat troponin 0.03. Discussed with hospitalist, Dr. Thompson at 15:10 who accepts admission. Patient remains chest pain free on nitro drip. Cardiology consulted. Patient's tachycardia improved. Vitals otherwise stable. - Medical Records Medical records reviewed: Yes I reviewed the patient's medical records. - Lab Data Lab results reviewed: Yes I reviewed the patient's lab results. Result diagrams: 08/07/18 13:55 - Radiology Data Radiology results reviewed: Yes I reviewed the patient's radiology results. - EKG Data EKG attestation: Yes I reviewed and interpreted this EKG. EKG results narrative: EKG obtained at 1318 shows atrial ventricular paced rhythm with heart rate 102. There is ST elevation in V2 and V3 that is new compared to prior EKG on 04/03/2018. There is also T-wave inversion in V6. Prior EKG on 03/26/2018 shows left bundle branch block with heart rate 66. Heart Score - Score History: Moderately Suspicious EKG: Non Specific repolarisation Disturbance Age: 45-65 Risk Factors: Equal/Greater than 3 risk factor or history of atherosclerotic disease Troponin: 1-3x normal limit HEART Score Total: 6 Attestation Statement - Attestation Attestation: Resident Attestation: I examined this patient and my medical decision making was reviewed with the Resident Physician. I agree with the documented findings, disposition and treatment plan as described except to the extent set forth below. We independently had [id number] contact with the patient. Patient presents from the [facility] for elevated troponin. Upon evaluation of the EKG patient has EKG changes compared with prior. Interventional cardiology was called and the case was discussed. Interventional cardiology came down to evaluate the patient at bedside. Patient with multifactorial etiologies. At this time repeat troponin, heparin, nitroglycerin, pain control, rate control although caution with rate control secondary to positive cocaine. The patient had recurrence of her chest pain within the emergency department that was abated with nitroglycerin drip. Patient will be admitted for further workup and emiliano andino. Cardiology consulted on the case.
[2018-08-07] MEDS ORDERED: Aspirin 81 MG TAB.CHEW PO STA (13:30)
[2018-08-07] MEDS ORDERED: *HR* Heparin 5,000 UNIT/ML VIAL IVP PRN ×2 (13:31)
[2018-08-07] MEDS ORDERED: *HR* Heparin 5,000 UNIT/ML VIAL IVP ONE (13:31)
[2018-08-07] MEDS ORDERED: 0.9 % Sodium Chloride 500 ML IVC ONE (13:43)
[2018-08-07] MEDS ORDERED: Nitroglycerin 25 MG/250 ML INFUS..BTL IVC SCH (13:45)
[2018-08-07] MEDS ORDERED: Heparin 25,000 UNIT/500 ML D5W 25,000 UNIT/500 ML BAG IVC SCH (13:45)
[2018-08-07 14:32] LABS: INR 1.1; Prothrombin Time 11.9 Seconds (9.4-12.1)
[2018-08-07 14:43] LABS: Troponin I 0.03 ng/mL (< 0.04)
[2018-08-07] MEDS ORDERED: Naloxone 0.4 MG/ML INJ IVP PRN (15:23)
--- NOTE | 2018-08-07 15:41 | Event Note ---
Date of Encounter: 08/07/18 Time of Encounter: 15:37 - Cardiology Event Note ER notes reviewed. Patient presented to urgent care with complaints of chest pain. Patient has a known history of non-ischemic cardiomyopathy s/p AICD placement. [facility] 11/2017 with mild CAD. Reported troponin at outside facility 0.05, troponin negative [facility] ECGs reviewed personally and with with paced rhythm. Of note, per notes, admits to cocaine use and was cocaine positive at outside facility. Recommend trending troponins x3. Limited echo pending.
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
[2018-08-07] MEDS ORDERED: Dextrose Gel 15 GM/37.5 ML TUBE PO PRN ×2 (15:53)
[2018-08-07] MEDS ORDERED: *HR* Dextrose 50 % in Water (Syg) 50 ML SYRINGE IVP PRN (15:53)
[2018-08-07] MEDS ORDERED: D5% in Water 1,000 ML IVC PRN (15:53)
[2018-08-07] MEDS ORDERED: Ipratropium/Albuterol Neb 3 ML IH PRN (15:54)
[2018-08-07 16:08] LABS: Calcium 9.8 mg/dL (8.6-10.3); Potassium 3.5 mEq/L (3.5-5.1)
[2018-08-07] MEDS: Insulin LISPRO 300 UNITS/3 ML VIAL SQ SCH ×2 (18:18→20:02)
[2018-08-07] MEDS ORDERED: Perflutren Lipid Microsphere 1.3 ML in 0.9 % Sodium Chloride 8.7 ML IVP ONE (19:51)
[2018-08-07] MEDS ORDERED: *HR* LORazepam 0.5 MG TABLET PO ONE (20:51)
--- NOTE | 2018-08-07 21:04 | Event Note ---
Date of Encounter: 08/07/18 Time of Encounter: 20:21 Alerted by pts. nurse Lashay DE LEON that the pt. reporting feeling anxious and restless. Pt. admitted w/elevated troponin and is currently on heparin and nitro gtts. Pt. has hx of doing crack cocaine two days ago, so sx likely r/t withdrawal. Went to see pt. who was resting in bed but appeared anxious. I asked the pt. if she has a hx of anxiety to which she said yes. She reports taking Vistaril at home for this. Meds are currently not reconciled, so will order a one-time dose of PO Ativan 0.5 mg to see how pt. responds. Nurse instructed to continue to monitor the pt. closely and alert me immediately of any adverse changes.
[2018-08-08 05:37] LABS: Basophils # 0.1 K/mcL (0.0-0.2); Basophils % 1.1 %; Eosinophils # 0.3 K/mcL (0.0-0.6); Eosinophils % 4.1 %; Hematocrit 41.1 % (35.3-44.9); Hemoglobin 14.2 g/dL (11.5-15.4); Immature Granulocytes % 0.1 % (0-4); Lymphocytes # 5.2 K/mcL (0.6-4.6); Lymphocytes % 68.9 %; Mean Corpuscular HGB Conc 34.5 g/dL (31.6-35.5); Mean Corpuscular Hemoglobin 28.7 pg (28.0-33.3); Mean Corpuscular Volume 83.2 fL (83.0-100.0); Mean Platelet Volume 10.7 fL (9.4-12.4); Monocytes # 0.6 K/mcL (0.0-1.3); Monocytes % 7.8 %; Neutrophils # 1.4 K/mcL (1.6-8.9); Platelet Count 168 K/mcL (140-400); Red Blood Count 4.94 M/mcL (3.82-4.97); Red Cell Distribution Width 13.9 % (11.5-14.5)
[2018-08-08 05:56] LABS: Calcium 9.3 mg/dL (8.6-10.3); Magnesium 1.5 mg/dL (1.6-2.6); Potassium 3.4 mEq/L (3.5-5.1)
[2018-08-08 06:05] LABS: Platelet Estimate Normal (Normal); Reactive Lymphocytes Present (Not Present)
[2018-08-08] MEDS ORDERED: hydrOXYzine pamoate 25 MG CAPSULE PO PRN (07:40)
[2018-08-08] MEDS: Insulin LISPRO 300 UNITS/3 ML VIAL SQ SCH ×4 (08:53→20:24)
[2018-08-08 09:00] LABS: Troponin I 0.04 ng/mL (< 0.04)
[2018-08-08] MEDS ORDERED: Isosorbide MONOnitrate (24 HR) 30 MG TAB.ER.24H PO ONE (09:09)
[2018-08-08] MEDS ORDERED: Potassium Chloride Elixir 20 MEQ/15 ML UDC PO ONE (09:30)
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
--- NOTE | 2018-08-08 10:36 | Internal Med Progress Note ---
Hospitalist Progress Note - Encounter Date of Encounter: 08/08/18 Time of Encounter: 08:45 - Subjective Interval History: Denies further recurrence of chest pain. No diaphoresis, N/V. Has nowhere to return upon discharge and does not know where to get help either. - Exam Vitals: Temp Pulse Resp BP Pulse Ox 98.3 F 77 16 124/90 100 08/08/18 07:24 08/08/18 09:25 08/08/18 09:25 08/08/18 09:25 08/08/18 09:25 Exam: General: Alert and oriented, not in acute distress. Cardiovascular:Normal S1 & S2, No JVD. Pulse regular. Lungs: clear to auscultation, no wheezes/rales Abdomen:Soft, non-tender, no rigidity. Extremities:No deformity or swelling Neurological: Tardive dyskinesia noted - Assessment and Plan (1) NSTEMI (non-ST elevated myocardial infarction) Current Visit: Yes Status: Acute Assessment and Plan: 0.059 -> 0.03 -> 0.05 -> 0.04, in the setting of drug non-compliance and cocaine abuse unlikely to represent type I event, [facility] 11/2017 showed mild CAD started on hep gtt in the ED, will d/c continue ASA wean off nitro gtt prior echo showed EF 20-25%, limited echo pending resume home meds, except for bb, once reconciled (2) Cocaine use Current Visit: Yes Status: Acute Assessment and Plan: urine tox screen done at urgent care was +ve for cocaine. Likely responsible for NSTEMI as above avoid bb abstinence emphasized social work consult (3) Diabetes mellitus Current Visit: No Status: Chronic Assessment and Plan: low dose sliding scale ADA diet (4) Hypokalemia Current Visit: Yes Status: Acute Assessment and Plan: K 3.0 -> 3.4 will replete further along with Mg (5) Chronic kidney disease (CKD) stage G3b/A1, moderately decreased glomerular filtration rate (GFR) between 30-44 mL/min/1.73 square meter and albuminuria creatinine ratio less than 30 mg/g Current Visit: No Status: Chronic Assessment and Plan: baseline Cr around 1.5-1.6, stable. continue to monitor avoid nephrotoxins (6) COPD (chronic obstructive pulmonary disease) Current Visit: Yes Status: Chronic Assessment and Plan: not in exacerbation resume home inhalers once reconciled PRN duoneb (7) Depression Current Visit: No Status: Chronic Assessment and Plan: resume home meds once reconciled (8) Homelessness Current Visit: Yes Status: Chronic Assessment and Plan: SW consult for placement unsure if she could perform her ADL's independently, will obtain official OT eval (9) DVT prophylaxis Current Visit: No Status: Acute Assessment and Plan: SQ heparin - Time Spent with Patient Total time spent is greater than 50% in coordination of care (as documented) at patient's floor/unit and/or counseling patient: Plan of Care Discussed with: social work Internal Medicine: Result - Labs CBC & Chem 7: 08/08/18 05:17 08/08/18 05:17 Labs: Short CBC 08/08/18 Range/Units 05:17 WBC 7.5 (4.3-11.1) K/mcL Hgb 14.2 (11.5-15.4) g/dL Hct 41.1 (35.3-44.9) % Plt Count 168 (140-400) K/mcL Neutrophils # 1.4 L (1.6-8.9) K/mcL BMP 08/07/18 08/08/18 13:55 05:17 Sodium 131 L 136 Potassium 3.5 3.4 L Chloride 103 104 Carbon Dioxide 12 L 22 L BUN 12 15 Creatinine 1.38 H 1.46 H Glucose 241 H 153 H Calcium 9.8 9.3 Cardiac Enzymes 08/07/18 08/07/18 08/08/18 Range/Units 13:55 21:29 05:17 Troponin I 0.03 0.05 H* 0.04 H* (< 0.04) ng/mL - ABG Interpretation ABG results: PT/INR, D-dimer PT 11.9 Seconds (9.4-12.1) 08/07/18 13:49 Consult Discharge Plan - Plan [facility]errals: [facility]Primary Care Provider] - (3) Diabetes mellitus Qualifiers: Diabetes mellitus type: type 2 Diabetes mellitus long chain beamer insulin use: without nursing home use Diabetes mellitus complication status: without complication Qualified Code(s): E11.9 - Type 2 diabetes mellitus without complications (6) COPD (chronic obstructive pulmonary disease) Qualifiers: COPD type: emphysema Emphysema type: unspecified Qualified Code(s): J43.9 - Emphysema, unspecified (7) Depression Qualifiers: Depression Type: unspecified Qualified Code(s): F32.9 - Major depressive disorder, single episode, unspecified
[2018-08-08] MEDS: Aspirin Enteric Coated 81 MG Tablet PO SCH (10:59)
[2018-08-08] MEDS: *HR* Heparin 5,000 UNIT/ML VIAL SQ SCH (17:31)
[2018-08-08] MEDS ORDERED: Acetaminophen 325 MG TABLET PO PRN (17:36)
[2018-08-09] MEDS: *HR* Heparin 5,000 UNIT/ML VIAL SQ SCH (05:04)
--- NOTE | 2018-08-09 05:30 | Electrocardiograph Report ---
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
--- NOTE | 2018-08-09 05:30 | Electrocardiograph Report ---
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
[2018-08-09] MEDS: Insulin LISPRO 300 UNITS/3 ML VIAL SQ SCH ×2 (08:30→12:31)
[2018-08-09] MEDS: Aspirin Enteric Coated 81 MG Tablet PO SCH (08:31)
[2018-08-09 08:52] LABS: Calcium 9.5 mg/dL (8.6-10.3); Magnesium 1.8 mg/dL (1.6-2.6); Potassium 3.7 mEq/L (3.5-5.1)
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
--- NOTE | 2018-08-09 12:26 | Discharge Summary ---
- NOTES TO OUTPATIENT PROVIDER Notes to Outpatient Provider: Patient with history of schizophrenia, PTSD, nonobstructive CAD, HFrEF, was admitted for NSTEMI in the setting of cocaine use. Briefly required heparin and nitro gtt both of which have been discontinued. Echo remains unchanged from prior. ASA, Losartan resumed while holding off on bb due to high risk of cocaine relapse. DUring her stay, she endorsed SI prompting psychiatric evaluation in-house, who recommended her to be transferred to [place] [facility] treatment as she has [facility] benefits and have received treatment there previously. Date of Encounter: 08/09/18 Time of Encounter: 11:30 - Discharge Diagnosis (1) NSTEMI (non-ST elevated myocardial infarction) Priority: Primary Status: Acute (2) Cocaine use Priority: Secondary Status: Acute (3) Diabetes mellitus Priority: Secondary Status: Chronic Qualifiers: Diabetes mellitus type: type 2 Diabetes mellitus detention insulin use: without director university use Diabetes mellitus complication status: without complication Qualified Code(s): E11.9 - Type 2 diabetes mellitus without complications (4) Hypokalemia Priority: Secondary Status: Acute (5) Chronic kidney disease (CKD) stage G3b/A1, moderately decreased glomerular filtration rate (GFR) between 30-44 mL/min/1.73 square meter and albuminuria creatinine ratio less than 30 mg/g Priority: Secondary Status: Chronic (6) COPD (chronic obstructive pulmonary disease) Priority: Secondary Status: Chronic Qualifiers: COPD type: emphysema Emphysema type: unspecified Qualified Code(s): J43.9 - Emphysema, unspecified (7) Depression Priority: Secondary Status: Chronic Qualifiers: Depression Type: unspecified Qualified Code(s): F32.9 - Major depressive disorder, single episode, unspecified (8) Homelessness Priority: Secondary Status: Chronic (9) DVT prophylaxis Priority: Secondary Status: Acute Hospital course: Ms. Cutler is a 57 year old female with history of schizophrenia, PTSD, nonobstructive CAD, HFrEF, who was admitted for NSTEMI in the setting of cocaine use. Briefly required heparin and nitro gtt both of which have been discontinued. Echo remains unchanged from prior. ASA, Losartan resumed while holding off on bb due to high risk of cocaine relapse. DUring her stay, she endorsed SI prompting psychiatric evaluation in-house, who recommended her to be transferred to [facility] treatment as she has [facility] benefits and have received treatment there previously. Discharge discussed with: patient, nurse, case management - Time Spent with Patient Total time spent providing and/or coordinating discharge services: 32 mins - Discharge Medications Prescriptions: Aspirin Enteric Coated [Aspirin EC] 81 mg PO DAILY #30 tablet. Losartan [Cozaar] 12.5 mg PO DAILY #30 tablet Home Medications: Acetaminophen [Non-Aspirin] 650 mg PO Q6H PRN 11/23/17 [History] Budesonide/Formoterol 160/4.5 [Symbicort 160/4.5] 2 puff IH BIDR 11/23/17 [History] Loxapine Succinate [Loxapine] 30 mg PO HS 11/23/17 [History] Magnesium Oxide [Magnesium] 400 mg PO DAILY 11/23/17 [History] Melatonin 12 mg PO HS 11/23/17 [History] Pregabalin [Lyrica] 150 mg PO BID 11/23/17 [History] Tiotropium [Spiriva] 18 mcg IH DAILY 11/23/17 [History] Topiramate [Topamax] 50 mg PO DAILY 11/23/17 [History] Vitamin E (Dl,Tocopheryl Acet) [Vitamin E] 400 unit PO QAM 11/23/17 [History] Insulin ASPART [NovoLOG] 5 unit SQ QAM PRN 03/26/18 [History] Pyridoxine HCl [Vitamin B-6] 50 mg PO QAM 03/26/18 [History] Albuterol Sulfate [Albuterol Inhaler] 1 puff PO Q4H PRN 08/09/18 [History] Aspirin Enteric Coated [Aspirin EC] 81 mg PO DAILY #30 tablet. 08/09/18 [Rx] Cholecalciferol (Vitamin D3) [Vitamin D3] 2,000 unit PO DAILY 08/09/18 [History] Insulin Glargine,Hum.rec.anlog [Lantus Solostar] 58 unit SQ DAILY 08/09/18 [History] L. Acidophilus/L.bulgaricus [Lactobacillus Tablet] 1 each PO DAILY 08/09/18 [History] Losartan [Cozaar] 12.5 mg PO DAILY #30 tablet 08/09/18 [Rx] Ondansetron HCl [Zofran] 4 mg PO Q8H PRN 08/09/18 [History] Trazodone HCl 150 mg PO DAILY 08/09/18 [History] hydrOXYzine HCl [Hydroxyzine HCl] 50 mg PO BID PRN 08/09/18 [History] Allergies/Adverse Reactions: Allergy/AdvReac Type Severity Reaction Status Date / Time ampicillin Allergy See Verified 08/07/18 13:15 Comments cephalexin Allergy See Verified 08/07/18 13:15 Comments Erythromycin Base Allergy See Verified 08/07/18 13:15 Comments lisinopril Allergy See Verified 08/07/18 13:15 Comments Penicillins Allergy See Verified 08/07/18 13:15 Comments Sulfa (Sulfonamide Allergy See Verified 08/07/18 13:15 Antibiotics) Comments Date of admission: 08/07/18 15:27 [facility] care physician: [facility] Consults: 08/07/18 15:[address] Judge [CONS] Routine Reason for SW Consult: homeless, meds noncompliance 08/07/18 18:09 Consult to Nutrition [CONS] Routine Comment: Consulting Provider: NUTRITION Reason for Dietary Consult: MST Score 08/08/18 09:49 Consult to Occupational Therapy [CONS] Routine Comment: Evaluate, develop and implement POC Reason for Consult: ?underlying cognitive impairment, homeless Does patient have active BEDREST order?: No Is patient medically & hemodynamically stable?: Yes 08/08/18 15:05 Consult to Psychiatry [CONS] Routine Consulting Provider: Psychiatry Dali Reason consult: Sitter/1:1 - Constitutional Vitals: Temp Pulse Resp BP Pulse Ox 97.5 F L 76 15 107/67 100 08/09/18 12:05 08/09/18 11:08 08/09/18 08:02 08/09/18 11:08 08/09/18 04:16 Exam: General: Alert and oriented, not in acute distress. Cardiovascular:Normal S1 & S2, No JVD. Pulse regular. Lungs: clear to auscultation, no wheezes/rales Abdomen:Soft, non-tender, no rigidity. Extremities:No deformity or swelling Neurological: Tardive dyskinesia noted - Patient Status Disposition: Transfer Psychiatric Hosp Condition: Fair - Discharge Instructions Instructions: Heart Failure (DC), Anxiety (DC), Chronic Obstructive Pulmonary Disease (DC) [facility] With: [facility] Care Provider[facility] - Additional Instructions: ASA, losartan resumed for CHF bb on hold due to cocaine use - Diet and Activity Activity: resume usual activities as tolerated Diet: diabetic diet
[2018-08-09] MEDS ORDERED: hydrOXYzine pamoate 25 MG CAPSULE PO PRN (15:19)
[2018-08-09 15:58] VITALS: BP 118/93
[2018-08-09] MEDS ORDERED: LOXAPINE SUCCINATE PO SCH (21:00)
[2018-08-09] MEDS ORDERED: Melatonin 3 MG TABLET PO SCH (21:00)
[2018-08-09] MEDS ORDERED: Pregabalin 75 MG CAPSULE PO SCH (21:00)
[2018-08-09] MEDS ORDERED: Budesonide/Formoterol 160/4.5 1 PUFF INH IH SCH (22:00)
[2018-08-10] MEDS ORDERED: Pyridoxine (B-6) 50 MG TABLET PO SCH (09:00)
[2018-08-10] MEDS ORDERED: Cholecalciferol (D-3) 1,000 UNIT TABLET PO SCH (09:00)
[2018-08-10] MEDS ORDERED: Topiramate 25 MG TABLET PO SCH (09:00)
[2018-08-10] MEDS ORDERED: Magnesium Oxide 400 MG TABLET PO SCH (09:00)
== END 2018-08-09 17:07 ==
LOC: 2NENU 13:08 → EMEROOARM 13:08 → SUATTDRO 15:27 → 2NENU 16:14
PROVIDERS: ADMIT Student in an Organized Health Care Education/Training Program; ATTEND Internal Medicine

== ENCOUNTER 2019-12-04 11:54 | Observation (INO) ==
[2019-12-04] MEDS ORDERED: Isovue-370 500 ML BOTTLE IVP ONE (12:04)
[2019-12-04 12:44] LABS: Basophils # 0.1 K/mcL (0.0-0.2); Eosinophils # 0.2 K/mcL (0.0-0.6); Eosinophils % 3.8 %; Hematocrit 36.1 % (35.3-44.9); Immature Granulocytes % 0.2 % (0-4); Lymphocytes # 1.6 K/mcL (0.6-4.6); Lymphocytes % 31.1 %; Mean Corpuscular HGB Conc 33.2 g/dL (31.6-35.5); Mean Corpuscular Hemoglobin 29.9 pg (28.0-33.3); Mean Corpuscular Volume 89.8 fL (83.0-100.0); Mean Platelet Volume 10.5 fL (9.4-12.4); Monocytes # 0.5 K/mcL (0.0-1.3); Monocytes % 9.6 %; Neutrophils # 2.7 K/mcL (1.6-8.9); Platelet Count 169 K/mcL (140-400); Red Blood Count 4.02 M/mcL (3.82-4.97); Segmented Neutrophils % 54.3 %
[2019-12-04 12:47] LABS: INR 1.1; Prothrombin Time 12.7 Seconds (9.4-12.1)
[2019-12-04 12:50] LABS: Activated Partial Thrombo Time 32.9 Seconds (26.0-36.0)
[2019-12-04 13:01] LABS: Albumin 4.2 g/dL (3.5-5.7); Albumin/Globulin Ratio 1.2 (1.1-2.2); Bilirubin,Total 0.6 mg/dL (0.3-1.0); Calcium 9.8 mg/dL (8.6-10.3); Globulin 3.4 g/dL (2.4-3.5); Potassium 5.8 mEq/L (3.5-5.1); Total Protein 7.6 g/dL (6.4-8.9)
[2019-12-04] MEDS: 0.9 % Sodium Chloride 1,000 ML IVC SCH (14:30)
[2019-12-04] MEDS ORDERED: *HR* HYDROcodone/Acet 5/325 mg TABLET PO PRN (15:36)
[2019-12-04] MEDS ORDERED: Ondansetron 4 MG/2 ML VIAL IVP PRN (15:36)
[2019-12-04] MEDS ORDERED: MOM Conc 10 ML UD.LIQ PO PRN (15:36)
[2019-12-04] MEDS ORDERED: *HR* Promethazine 25 MG/ML VIAL IVP PRN (15:36)
[2019-12-04] MEDS ORDERED: Acetaminophen 325 MG TABLET PO PRN (15:36)
[2019-12-04] MEDS ORDERED: Mag Hydrox/Al Hydrox/Simeth 30 ML UDC PO PRN (15:36)
[2019-12-04] MEDS ORDERED: Naloxone 0.4 MG/ML INJ IVP PRN (15:36)
[2019-12-04] MEDS ORDERED: hydrOXYzine pamoate 25 MG CAPSULE PO PRN (15:41)
[2019-12-04] MEDS ORDERED: *HR* Dextrose 50 % in Water (Syg) 50 ML SYRINGE IVP PRN (15:44)
[2019-12-04] MEDS ORDERED: D5% in Water 1,000 ML IVC PRN (15:44)
[2019-12-04] MEDS ORDERED: Dextrose Gel 15 GM/37.5 ML TUBE PO PRN ×2 (15:44)
[2019-12-04] MEDS: carvediloL 6.25 MG TABLET PO SCH (18:09)
[2019-12-04] MEDS: Insulin LISPRO 300 UNITS/3 ML VIAL SQ SCH ×2 (18:09→20:29)
[2019-12-04] MEDS: Budesonide/Formoterol 160/4.5 1 PUFF INH IH SCH (20:09)
[2019-12-04] MEDS: traZODone 50 MG TABLET PO SCH (20:30)
[2019-12-04] MEDS: Pregabalin 50 MG CAPSULE PO SCH (20:30)
[2019-12-04] MEDS: Melatonin 3 MG TABLET PO SCH (20:30)
[2019-12-04] MEDS: Loratadine 10 MG TABLET PO SCH (20:31)
[2019-12-04] MEDS ORDERED: NON-FORMULARY MEDICATION 1 EACH EACH (Trazodone Hcl 150 MG) PO SCH (21:00)
[2019-12-04] MEDS: LOXAPINE SUCCINATE PO SCH ×2 (22:11)
[2019-12-04] MEDS: MethylPREDNISolone 40 MG/ML VIAL IVP SCH (23:51)
[2019-12-05 02:22] LABS: Basophils # 0.1 K/mcL (0.0-0.2); Basophils % 0.9 %; Eosinophils # 0.2 K/mcL (0.0-0.6); Eosinophils % 2.9 %; Hematocrit 38.3 % (35.3-44.9); Hemoglobin 12.8 g/dL (11.5-15.4); Immature Granulocytes % 0.2 % (0-4); Lymphocytes # 2.2 K/mcL (0.6-4.6); Lymphocytes % 27.2 %; Mean Corpuscular HGB Conc 33.4 g/dL (31.6-35.5); Mean Corpuscular Hemoglobin 30.2 pg (28.0-33.3); Mean Corpuscular Volume 90.3 fL (83.0-100.0); Mean Platelet Volume 11.1 fL (9.4-12.4); Monocytes # 0.5 K/mcL (0.0-1.3); Monocytes % 5.6 %; Neutrophils # 5.2 K/mcL (1.6-8.9); Platelet Count 159 K/mcL (140-400); Red Blood Count 4.24 M/mcL (3.82-4.97); Red Cell Distribution Width 13.1 % (11.5-14.5); Segmented Neutrophils % 63.2 %
[2019-12-05 02:25] LABS: White Blood Count 8.2 K/mcL (4.3-11.1)
[2019-12-05 03:11] LABS: Calcium 9.7 mg/dL (8.6-10.3); Chol/HDL Ratio 3.7 (0-4.9); Magnesium 2.1 mg/dL (1.6-2.6); Phosphorous 3.7 mg/dL (2.7-4.5); Potassium 4.2 mEq/L (3.5-5.1)
[2019-12-05] MEDS: 0.9 % Sodium Chloride 1,000 ML IVC SCH ×2 (03:57→11:54)
[2019-12-05] MEDS: Budesonide/Formoterol 160/4.5 1 PUFF INH IH SCH ×2 (07:54→20:19)
[2019-12-05] MEDS: Tiotropium 18 MCG inhalation IH SCH (07:54)
[2019-12-05] MEDS: Pregabalin 50 MG CAPSULE PO SCH ×2 (07:57→20:15)
[2019-12-05] MEDS: Magnesium Oxide 400 MG TABLET PO SCH (07:57)
[2019-12-05] MEDS: carvediloL 6.25 MG TABLET PO SCH ×2 (07:57→17:05)
[2019-12-05] MEDS: Loratadine 10 MG TABLET PO SCH (07:57)
[2019-12-05] MEDS: Aspirin Enteric Coated 81 MG Tablet PO SCH (07:57)
[2019-12-05] MEDS: Famotidine 20 MG TABLET PO SCH (07:58)
[2019-12-05] MEDS: Insulin LISPRO 300 UNITS/3 ML VIAL SQ SCH ×4 (07:58→20:15)
[2019-12-05] MEDS: MethylPREDNISolone 40 MG/ML VIAL IVP SCH (07:58)
[2019-12-05] MEDS: Pyridoxine (B-6) 50 MG TABLET PO SCH (11:45)
[2019-12-05] MEDS: traZODone 50 MG TABLET PO SCH (20:15)
[2019-12-05] MEDS: LOXAPINE SUCCINATE PO SCH ×2 (20:15→23:26)
[2019-12-05] MEDS: Melatonin 3 MG TABLET PO SCH (20:15)
[2019-12-06] MEDS: 0.9 % Sodium Chloride 1,000 ML IVC SCH ×4 (00:10→08:22)
[2019-12-06] MEDS: Tiotropium 18 MCG inhalation IH SCH (07:32)
[2019-12-06] MEDS: Budesonide/Formoterol 160/4.5 1 PUFF INH IH SCH (07:32)
[2019-12-06] MEDS: Aspirin Enteric Coated 81 MG Tablet PO SCH (08:23)
[2019-12-06] MEDS: carvediloL 6.25 MG TABLET PO SCH (08:23)
[2019-12-06] MEDS: Insulin LISPRO 300 UNITS/3 ML VIAL SQ SCH ×2 (08:23→12:31)
[2019-12-06] MEDS: Famotidine 20 MG TABLET PO SCH (08:23)
[2019-12-06] MEDS: Pregabalin 50 MG CAPSULE PO SCH (08:23)
[2019-12-06] MEDS: Magnesium Oxide 400 MG TABLET PO SCH (08:23)
[2019-12-06] MEDS: Pyridoxine (B-6) 50 MG TABLET PO SCH (08:24)
[2019-12-06 10:14] LABS: Calcium 8.4 mg/dL (8.6-10.3); Potassium 4.4 mEq/L (3.5-5.1)
[2019-12-06] MEDS ORDERED: Isovue-370 500 ML BOTTLE IVP ONE (12:25)
[2019-12-06 15:32] VITALS: BP 136/90
== END 2019-12-06 16:40 ==
LOC: EMEROOARM 11:54 → 3BNU 11:54
PROVIDERS: ADMIT Internal Medicine; ATTEND Internal Medicine

== ENCOUNTER 2020-04-08 09:39 | Inpatient (IN) ==
[2020-04-08] MEDS ORDERED: Dexamethasone 4 MG/ML VIAL IVP ONE (10:06)
[2020-04-08] MEDS ORDERED: Ipratropium/Albuterol Neb 3 ML IH ONE ×2 (10:06→10:08)
[2020-04-08 10:33] LABS: Basophils # 0.1 K/mcL (0.0-0.2); Basophils % 1.4 %; Eosinophils # 0.3 K/mcL (0.0-0.6); Eosinophils % 5.1 %; Hematocrit 34.1 % (35.3-44.9); Hemoglobin 10.7 g/dL (11.5-15.4); Immature Granulocytes % 0.2 % (0-4); Lymphocytes # 0.7 K/mcL (0.6-4.6); Mean Corpuscular HGB Conc 31.4 g/dL (31.6-35.5); Mean Corpuscular Hemoglobin 27.9 pg (28.0-33.3); Mean Corpuscular Volume 88.8 fL (83.0-100.0); Mean Platelet Volume 10.5 fL (9.4-12.4); Monocytes # 0.4 K/mcL (0.0-1.3); Neutrophils # 3.4 K/mcL (1.6-8.9); Platelet Count 182 K/mcL (140-400); Red Blood Count 3.84 M/mcL (3.82-4.97); Red Cell Distribution Width 15.1 % (11.5-14.5); Segmented Neutrophils % 69.3 %; White Blood Count 4.9 K/mcL (4.3-11.1)
[2020-04-08 10:43] LABS: BUN/Creatinine Ratio 10 (6-26); Blood Urea Nitrogen 16 mg/dL (6-20); Calcium 9.2 mg/dL (8.6-10.3); Carbon Dioxide 24 mEq/L (23-29); Chloride 101 mEq/L (98-107); Glucose 271 mg/dL (70-105); Osmolality,Calculated 287 (280-300); Potassium 4.8 mEq/L (3.5-5.1); Sodium 133 mEq/L (136-145); eGFR For African Americans 40 (> 60); eGFR For Non-African Americans 33 (> 60)
[2020-04-08 10:45] LABS: Troponin I < 0.03 ng/mL (< 0.04)
[2020-04-08] MEDS ORDERED: Bumetanide 1 MG/4 ML VIAL IVP ONE (11:44)
[2020-04-08] MEDS ORDERED: Naloxone 0.4 MG/ML INJ IVP PRN (12:27)
[2020-04-08 12:32] LABS: Adenovirus Not Detected (Not Detect); Bordetella Pertussis Not Detected (Not Detect); Chlamydophila pneumoniae Not Detected (Not Detect); Coronavirus 229E Not Detected (Not Detect); Coronavirus HKU1 Not Detected (Not Detect); Coronavirus NL63 Not Detected (Not Detect); Coronavirus OC43 Not Detected (Not Detect); Human Metapneumovirus Not Detected (Not Detect); Human Rhinovirus/Enterovirus Not Detected (Not Detect); Influenza A Subtype 2009 H1 Not Detected (Not Detect); Influenza B Not Detected (Not Detect); Mycoplasma pneumoniae Not Detected (Not Detect); Parainfluenza Virus 1 Not Detected (Not Detect); Parainfluenza Virus 2 Not Detected (Not Detect); Parainfluenza Virus 3 Not Detected (Not Detect); Parainfluenza Virus 4 Not Detected (Not Detect); Respiratory Syncytial Virus Not Detected (Not Detect); SARS-CoV-2 Not Detected (Not Detect)
[2020-04-08] MEDS ORDERED: D5% in Water 1,000 ML IVC PRN (13:36)
[2020-04-08] MEDS ORDERED: *HR* Dextrose 50 % in Water (Vial) 50 ML VIAL IVP PRN (13:36)
[2020-04-08] MEDS ORDERED: Dextrose Gel 15 GM/37.5 ML TUBE PO PRN ×2 (13:36)
[2020-04-08] MEDS: Artificial Tears SOLN 15 ML BOTTLE BOTH EYES SCH ×2 (15:44→20:27)
[2020-04-08] MEDS: hydrOXYzine pamoate 25 MG CAPSULE PO SCH ×2 (15:44→20:20)
[2020-04-08] MEDS: Insulin LISPRO 300 UNITS/3 ML VIAL SQ SCH (15:45)
[2020-04-08] MEDS: carvediloL 6.25 MG TABLET PO SCH (15:53)
[2020-04-08] MEDS: Ipratropium/Albuterol Neb 3 ML IH PRN (17:05)
[2020-04-08] MEDS: *HR* Heparin 5,000 UNIT/ML VIAL SQ SCH (20:20)
[2020-04-08] MEDS: Pregabalin 50 MG CAPSULE PO SCH (20:20)
[2020-04-08] MEDS: Sennosides/Docusate Sodium TABLET PO SCH (20:20)
[2020-04-08] MEDS: Melatonin 3 MG TABLET PO SCH (20:20)
[2020-04-09 01:18] LABS: Basophils % 0.3 %; Hematocrit 30.9 % (35.3-44.9); Hemoglobin 9.9 g/dL (11.5-15.4); Immature Granulocytes % 0.3 % (0-4); Lymphocytes # 0.5 K/mcL (0.6-4.6); Lymphocytes % 15.8 %; Mean Corpuscular Hemoglobin 28.4 pg (28.0-33.3); Mean Corpuscular Volume 88.5 fL (83.0-100.0); Mean Platelet Volume 11.4 fL (9.4-12.4); Monocytes # 0.2 K/mcL (0.0-1.3); Monocytes % 5.8 %; Neutrophils # 2.7 K/mcL (1.6-8.9); Platelet Count 160 K/mcL (140-400); Red Blood Count 3.49 M/mcL (3.82-4.97); Red Cell Distribution Width 14.7 % (11.5-14.5); Segmented Neutrophils % 77.8 %; White Blood Count 3.4 K/mcL (4.3-11.1)
[2020-04-09 01:41] LABS: Potassium 4.8 mEq/L (3.5-5.1)
[2020-04-09] MEDS: *HR* Heparin 5,000 UNIT/ML VIAL SQ SCH ×3 (06:03→20:13)
[2020-04-09] MEDS: Tiotropium 18 MCG inhalation IH SCH (07:12)
[2020-04-09] MEDS: Furosemide 40 MG/4 ML VIAL IVP SCH ×2 (08:12→20:09)
[2020-04-09] MEDS: Famotidine 20 MG TABLET PO SCH (08:13)
[2020-04-09] MEDS: Insulin LISPRO 300 UNITS/3 ML VIAL SQ SCH ×3 (08:13→16:54)
[2020-04-09] MEDS: carvediloL 6.25 MG TABLET PO SCH ×2 (08:14→16:55)
[2020-04-09] MEDS: Pregabalin 50 MG CAPSULE PO SCH ×2 (08:14→20:08)
[2020-04-09] MEDS: Spironolactone 25 MG TABLET PO SCH (08:14)
[2020-04-09] MEDS: traZODone 50 MG TABLET PO SCH (08:14)
[2020-04-09] MEDS: Sennosides/Docusate Sodium TABLET PO SCH ×2 (08:14→20:08)
[2020-04-09] MEDS: Magnesium Oxide 400 MG TABLET PO SCH (08:14)
[2020-04-09] MEDS: Pyridoxine (B-6) 50 MG TABLET PO SCH (08:15)
[2020-04-09] MEDS: hydrOXYzine pamoate 25 MG CAPSULE PO SCH ×3 (08:15→20:07)
[2020-04-09] MEDS: Artificial Tears SOLN 15 ML BOTTLE BOTH EYES SCH ×4 (08:15→20:05)
[2020-04-09] MEDS ORDERED: Nitroglycerin 0.4 MG TAB.SUBL SL PRN (17:55)
[2020-04-09] MEDS ORDERED: hydrOXYzine pamoate 25 MG CAPSULE PO PRN (17:55)
[2020-04-09] MEDS ORDERED: Lactulose Oral Soln 20 GM/30 ML UDC PO PRN (17:55)
[2020-04-09] MEDS ORDERED: Scopolamine Patch 1.5 MG PATCH.TD72 TD SCH (18:00)
[2020-04-09] MEDS: [UNRECOGNIZED DRUG - OTHER] TP SCH (18:35)
[2020-04-09] MEDS: Budesonide/Formoterol 80/4.5 1 PUFF INH IH SCH (20:02)
[2020-04-09] MEDS: LOXAPINE SUCCINATE PO SCH (20:05)
[2020-04-09] MEDS: Melatonin 3 MG TABLET PO SCH (20:08)
[2020-04-10] MEDS: *HR* Heparin 5,000 UNIT/ML VIAL SQ SCH ×3 (05:28→21:53)
[2020-04-10 06:38] LABS: Basophils # 0.1 K/mcL (0.0-0.2); Basophils % 0.8 %; Eosinophils # 0.2 K/mcL (0.0-0.6); Eosinophils % 2.6 %; Hematocrit 32.9 % (35.3-44.9); Hemoglobin 10.3 g/dL (11.5-15.4); Immature Granulocytes % 0.4 % (0-4); Lymphocytes # 1.9 K/mcL (0.6-4.6); Lymphocytes % 24.1 %; Mean Corpuscular HGB Conc 31.3 g/dL (31.6-35.5); Mean Corpuscular Hemoglobin 27.5 pg (28.0-33.3); Mean Corpuscular Volume 87.7 fL (83.0-100.0); Mean Platelet Volume 10.7 fL (9.4-12.4); Monocytes # 0.7 K/mcL (0.0-1.3); Monocytes % 9.2 %; Neutrophils # 4.9 K/mcL (1.6-8.9); Platelet Count 206 K/mcL (140-400); Red Blood Count 3.75 M/mcL (3.82-4.97); Red Cell Distribution Width 15.2 % (11.5-14.5); Segmented Neutrophils % 62.9 %; White Blood Count 7.8 K/mcL (4.3-11.1)
[2020-04-10 06:57] LABS: Calcium 9.4 mg/dL (8.6-10.3); Potassium 4.4 mEq/L (3.5-5.1)
[2020-04-10] MEDS: Budesonide/Formoterol 80/4.5 1 PUFF INH IH SCH ×2 (07:24→20:31)
[2020-04-10] MEDS: Tiotropium 18 MCG inhalation IH SCH (07:25)
[2020-04-10] MEDS: hydrOXYzine pamoate 25 MG CAPSULE PO SCH ×3 (09:13→21:43)
[2020-04-10] MEDS: Magnesium Oxide 400 MG TABLET PO SCH (09:13)
[2020-04-10] MEDS: Spironolactone 25 MG TABLET PO SCH (09:13)
[2020-04-10] MEDS: Pregabalin 50 MG CAPSULE PO SCH ×2 (09:13→21:44)
[2020-04-10] MEDS: Pyridoxine (B-6) 50 MG TABLET PO SCH (09:13)
[2020-04-10] MEDS: Famotidine 20 MG TABLET PO SCH (09:13)
[2020-04-10] MEDS: Insulin LISPRO 300 UNITS/3 ML VIAL SQ SCH ×3 (09:14→18:32)
[2020-04-10] MEDS: Sennosides/Docusate Sodium TABLET PO SCH ×2 (09:14→21:42)
[2020-04-10] MEDS: Furosemide 40 MG/4 ML VIAL IVP SCH ×2 (09:14→21:44)
[2020-04-10] MEDS: carvediloL 6.25 MG TABLET PO SCH ×2 (09:14→18:33)
[2020-04-10] MEDS: Insulin DETEMIR 100 UNIT/ML X5UNITS SQ SCH (09:15)
[2020-04-10] MEDS: Artificial Tears SOLN 15 ML BOTTLE BOTH EYES SCH ×4 (09:16→21:47)
[2020-04-10] MEDS: Ipratropium/Albuterol Neb 3 ML IH PRN (13:35)
[2020-04-10] MEDS ORDERED: Albumin 25% 25gram/100mL 25 GM/100 ML IV.SOLN IVPB ONE (18:30)
[2020-04-10] MEDS: [UNRECOGNIZED DRUG - OTHER] TP SCH (18:33)
[2020-04-10] MEDS: Melatonin 3 MG TABLET PO SCH (21:43)
[2020-04-10] MEDS: traZODone 50 MG TABLET PO SCH (21:44)
[2020-04-10] MEDS: LOXAPINE SUCCINATE PO SCH (21:47)
[2020-04-11 04:49] LABS: Basophils # 0.1 K/mcL (0.0-0.2); Basophils % 1.2 %; Eosinophils # 0.3 K/mcL (0.0-0.6); Eosinophils % 5.3 %; Immature Granulocytes % 0.3 % (0-4); Lymphocytes # 1.5 K/mcL (0.6-4.6); Lymphocytes % 23.6 %; Mean Corpuscular HGB Conc 32.3 g/dL (31.6-35.5); Mean Corpuscular Hemoglobin 28.2 pg (28.0-33.3); Mean Corpuscular Volume 87.6 fL (83.0-100.0); Mean Platelet Volume 11.1 fL (9.4-12.4); Monocytes # 0.9 K/mcL (0.0-1.3); Monocytes % 14.6 %; Neutrophils # 3.6 K/mcL (1.6-8.9); Platelet Count 215 K/mcL (140-400); Red Blood Count 3.54 M/mcL (3.82-4.97); Red Cell Distribution Width 15.3 % (11.5-14.5); White Blood Count 6.5 K/mcL (4.3-11.1)
[2020-04-11 05:04] LABS: Magnesium 1.6 mg/dL (1.6-2.6); Phosphorous 4.5 mg/dL (2.7-4.5)
[2020-04-11 05:05] LABS: Calcium 9.9 mg/dL (8.6-10.3); Potassium 3.9 mEq/L (3.5-5.1)
[2020-04-11] MEDS: *HR* Heparin 5,000 UNIT/ML VIAL SQ SCH ×3 (05:37→20:24)
[2020-04-11] MEDS: Tiotropium 18 MCG inhalation IH SCH (07:39)
[2020-04-11] MEDS: Budesonide/Formoterol 80/4.5 1 PUFF INH IH SCH ×2 (07:39→20:38)
[2020-04-11] MEDS: Sennosides/Docusate Sodium TABLET PO SCH ×2 (08:16→20:24)
[2020-04-11] MEDS: Famotidine 20 MG TABLET PO SCH (08:16)
[2020-04-11] MEDS: Spironolactone 25 MG TABLET PO SCH (08:16)
[2020-04-11] MEDS: carvediloL 6.25 MG TABLET PO SCH ×2 (08:16→16:25)
[2020-04-11] MEDS: Pyridoxine (B-6) 50 MG TABLET PO SCH (08:16)
[2020-04-11] MEDS: Pregabalin 50 MG CAPSULE PO SCH ×2 (08:16→20:24)
[2020-04-11] MEDS: hydrOXYzine pamoate 25 MG CAPSULE PO SCH ×3 (08:16→20:25)
[2020-04-11] MEDS: Magnesium Oxide 400 MG TABLET PO SCH (08:16)
[2020-04-11] MEDS: Furosemide 40 MG/4 ML VIAL IVP SCH ×2 (08:17→23:00)
[2020-04-11] MEDS: Insulin LISPRO 300 UNITS/3 ML VIAL SQ SCH ×3 (08:18→16:24)
[2020-04-11] MEDS: Insulin DETEMIR 100 UNIT/ML X5UNITS SQ SCH (08:19)
[2020-04-11] MEDS: Artificial Tears SOLN 15 ML BOTTLE BOTH EYES SCH ×4 (08:22→20:38)
[2020-04-11] MEDS: traZODone 50 MG TABLET PO SCH ×2 (08:23→20:24)
[2020-04-11] MEDS: [UNRECOGNIZED DRUG - OTHER] TP SCH (16:29)
[2020-04-11] MEDS ORDERED: Albumin 25% 25gram/100mL 25 GM/100 ML IV.SOLN IVPB ONE (17:21)
[2020-04-11] MEDS: Melatonin 3 MG TABLET PO SCH (20:25)
[2020-04-11] MEDS: LOXAPINE SUCCINATE PO SCH (20:39)
[2020-04-11] MEDS ORDERED: Insulin LISPRO 300 UNITS/3 ML VIAL SQ SCH (21:00)
[2020-04-12] MEDS: *HR* Heparin 5,000 UNIT/ML VIAL SQ SCH (05:22)
[2020-04-12] MEDS: Tiotropium 18 MCG inhalation IH SCH (07:28)
[2020-04-12] MEDS: Budesonide/Formoterol 80/4.5 1 PUFF INH IH SCH (07:28)
[2020-04-12] MEDS: Artificial Tears SOLN 15 ML BOTTLE BOTH EYES SCH ×2 (08:18→12:29)
[2020-04-12] MEDS: Insulin LISPRO 300 UNITS/3 ML VIAL SQ SCH ×2 (08:19→12:27)
[2020-04-12] MEDS: Famotidine 20 MG TABLET PO SCH (08:21)
[2020-04-12] MEDS: Pregabalin 50 MG CAPSULE PO SCH (08:21)
[2020-04-12] MEDS: Pyridoxine (B-6) 50 MG TABLET PO SCH (08:21)
[2020-04-12] MEDS: Magnesium Oxide 400 MG TABLET PO SCH (08:21)
[2020-04-12] MEDS: hydrOXYzine pamoate 25 MG CAPSULE PO SCH (08:21)
[2020-04-12] MEDS: Spironolactone 25 MG TABLET PO SCH (08:21)
[2020-04-12] MEDS: carvediloL 6.25 MG TABLET PO SCH (08:21)
[2020-04-12] MEDS: Sennosides/Docusate Sodium TABLET PO SCH (08:21)
[2020-04-12 08:23] LABS: Calcium 9.8 mg/dL (8.6-10.3); Magnesium 1.5 mg/dL (1.6-2.6); Phosphorous 4.2 mg/dL (2.7-4.5)
[2020-04-12 11:37] VITALS: BP 118/80
[2020-04-12] MEDS: Insulin DETEMIR 100 UNIT/ML X5UNITS SQ SCH (12:27)
[2020-04-12] MEDS: Furosemide 40 MG/4 ML VIAL IVP SCH (12:31)
== END 2020-04-12 14:33 | DRG 291 ==
LOC: EMEROOARM 09:39 → 3BNU 09:39 → SUATTDRO 12:40 → 3BNU 13:53
PROVIDERS: ADMIT Internal Medicine; ATTEND Internal Medicine

== ENCOUNTER 2020-05-30 15:00 | Inpatient (IN) ==
[2020-05-30] MEDS ORDERED: Isovue-370 500 ML BOTTLE IVP ONE (15:05)
[2020-05-30 15:15] LABS: Hematocrit 37.4 % (35.3-44.9); Hemoglobin 12.3 g/dL (11.5-15.4); Mean Corpuscular HGB Conc 32.9 g/dL (31.6-35.5); Mean Corpuscular Hemoglobin 27.2 pg (28.0-33.3); Mean Corpuscular Volume 82.7 fL (83.0-100.0); Mean Platelet Volume 9.1 fL (9.4-12.4); Platelet Count 212 K/mcL (140-400); Red Blood Count 4.52 M/mcL (3.82-4.97); Red Cell Distribution Width 14.8 % (11.5-14.5); White Blood Count 5.9 K/mcL (4.3-11.1)
[2020-05-30 15:23] LABS: INR 1.1; Prothrombin Time 13.2 Seconds (9.4-12.1)
[2020-05-30 15:26] LABS: Activated Partial Thrombo Time 29.3 Seconds (26.0-36.0)
[2020-05-30 15:33] LABS: BUN/Creatinine Ratio 12 (6-26); Blood Urea Nitrogen 23 mg/dL (6-20); Calcium 9.7 mg/dL (8.6-10.3); Carbon Dioxide 25 mEq/L (23-29); Chloride 97 mEq/L (98-107); Glucose 188 mg/dL (70-105); Osmolality,Calculated 281 (280-300); Potassium 4.2 mEq/L (3.5-5.1); Sodium 131 mEq/L (136-145); eGFR For African Americans 34 (> 60); eGFR For Non-African Americans 28 (> 60)
[2020-05-30 16:07] LABS: Troponin I < 0.03 ng/mL (< 0.04)
[2020-05-30 17:04] LABS: Bilirubin,Urine Negative (Negative); Blood,Urine Negative (Negative); Clarity,Urine Clear (Clear); Color,Urine Colorless (Yellow); Glucose,Urine (UA) Normal (Normal); Ketones,Urine Negative (Negative); Leukocyte Esterase,Urine Negative (Negative); Nitrite,Urine Negative (Negative); Protein,Urine Negative (Neg-Trace); Specific Gravity,Urine 1.008 (1.010-1.025); Urobilinogen,Urine Normal (Normal)
[2020-05-30] MEDS ORDERED: Lactulose Oral Soln 20 GM/30 ML UDC PO PRN (17:27)
[2020-05-30] MEDS ORDERED: Nitroglycerin 0.4 MG TAB.SUBL SL PRN (17:27)
[2020-05-30] MEDS ORDERED: Artificial Tears SOLN 15 ML BOTTLE BOTH EYES PRN (17:27)
[2020-05-30] MEDS ORDERED: Dextrose Gel 15 GM/37.5 ML TUBE PO PRN ×2 (17:32)
[2020-05-30] MEDS ORDERED: D5% in Water 1,000 ML IVC PRN (17:32)
[2020-05-30] MEDS ORDERED: Naloxone 0.4 MG/ML INJ IVP PRN (17:32)
[2020-05-30] MEDS ORDERED: *HR* Dextrose 50 % in Water (Vial) 50 ML VIAL IVP PRN (17:32)
[2020-05-30] MEDS ORDERED: Perflutren Lipid Microsphere 1.3 ML in 0.9 % Sodium Chloride 8.7 ML IVP PRN (17:53)
[2020-05-30] MEDS: Scopolamine Patch 1.5 MG PATCH.TD72 TD SCH (19:19)
[2020-05-30] MEDS: *HR* Heparin 5,000 UNIT/ML VIAL SQ SCH (19:19)
[2020-05-30] MEDS: Melatonin 3 MG TABLET PO SCH (19:55)
[2020-05-30] MEDS: Acetaminophen 325 MG TABLET PO PRN (19:55)
[2020-05-30] MEDS: carvediloL 6.25 MG TABLET PO SCH (19:56)
[2020-05-30] MEDS: Sennosides/Docusate Sodium TABLET PO SCH (19:56)
[2020-05-30] MEDS: Furosemide 20 MG TABLET PO SCH (19:56)
[2020-05-30] MEDS: Pregabalin 50 MG CAPSULE PO SCH (19:58)
[2020-05-30] MEDS: Insulin DETEMIR 100 UNIT/ML X5UNITS SQ SCH (20:02)
[2020-05-30] MEDS: LOXAPINE SUCCINATE PO SCH (20:21)
[2020-05-30] MEDS: traZODone 50 MG TABLET PO SCH (22:12)
[2020-05-30] MEDS: Budesonide/Formoterol 80/4.5 1 PUFF INH IH SCH (22:22)
[2020-05-31 02:48] LABS: Basophils # 0.1 K/mcL (0.0-0.2); Basophils % 1.2 %; Eosinophils # 0.2 K/mcL (0.0-0.6); Eosinophils % 4.1 %; Hematocrit 36.3 % (35.3-44.9); Immature Granulocytes % 0.2 % (0-4); Lymphocytes # 1.7 K/mcL (0.6-4.6); Lymphocytes % 34.3 %; Mean Corpuscular HGB Conc 33.1 g/dL (31.6-35.5); Mean Corpuscular Hemoglobin 27.3 pg (28.0-33.3); Mean Corpuscular Volume 82.7 fL (83.0-100.0); Mean Platelet Volume 10.3 fL (9.4-12.4); Monocytes # 0.8 K/mcL (0.0-1.3); Monocytes % 16.1 %; Neutrophils # 2.2 K/mcL (1.6-8.9); Platelet Count 223 K/mcL (140-400); Red Blood Count 4.39 M/mcL (3.82-4.97); Red Cell Distribution Width 15.1 % (11.5-14.5); Segmented Neutrophils % 44.1 %; White Blood Count 4.9 K/mcL (4.3-11.1)
[2020-05-31 03:12] LABS: BUN/Creatinine Ratio 12 (6-26); Blood Urea Nitrogen 29 mg/dL (6-20); Calcium 9.5 mg/dL (8.6-10.3); Carbon Dioxide 25 mEq/L (23-29); Chloride 97 mEq/L (98-107); Chol/HDL Ratio 2.8 (0-4.9); Cholesterol 113 mg/dL (< 200); Glucose 156 mg/dL (70-105); HDL Cholesterol 41 mg/dL (40-59); LDL Cholesterol,Calculated 58 mg/dL (< 100); Magnesium 1.9 mg/dL (1.6-2.6); Osmolality,Calculated 283 (280-300); Potassium 4.1 mEq/L (3.5-5.1); Sodium 132 mEq/L (136-145); Triglycerides 70 mg/dL (< 150); Troponin I < 0.03 ng/mL (< 0.04); eGFR For African Americans 26 (> 60); eGFR For Non-African Americans 21 (> 60)
[2020-05-31] MEDS: *HR* Heparin 5,000 UNIT/ML VIAL SQ SCH ×2 (06:10→17:39)
[2020-05-31] MEDS: Insulin LISPRO 300 UNITS/3 ML VIAL SQ SCH ×4 (07:03→21:14)
[2020-05-31] MEDS: polyethylene glycoL 3350 17 GM POWD.PACK PO SCH (07:17)
[2020-05-31] MEDS ORDERED: Famotidine 20 MG TABLET PO SCH (07:30)
[2020-05-31] MEDS: Pregabalin 50 MG CAPSULE PO SCH ×2 (07:41→21:12)
[2020-05-31] MEDS: carvediloL 6.25 MG TABLET PO SCH ×2 (07:41→21:13)
[2020-05-31] MEDS: Isosorbide MONOnitrate (24 HR) 30 MG TAB.ER.24H PO SCH (07:41)
[2020-05-31] MEDS: Pyridoxine (B-6) 50 MG TABLET PO SCH (07:41)
[2020-05-31] MEDS: Magnesium Oxide 400 MG TABLET PO SCH (07:42)
[2020-05-31] MEDS: Aspirin 81 MG TAB.CHEW PO SCH (07:42)
[2020-05-31] MEDS: Furosemide 20 MG TABLET PO SCH (07:42)
[2020-05-31] MEDS: Sennosides/Docusate Sodium TABLET PO SCH ×2 (07:45→21:12)
[2020-05-31] MEDS: Tiotropium 18 MCG inhalation IH SCH (07:59)
[2020-05-31] MEDS ORDERED: Spironolactone 25 MG TABLET PO SCH (09:00)
[2020-05-31 09:08] LABS: Estimated Average Glucose 214 mg/dl
[2020-05-31] MEDS: Budesonide/Formoterol 80/4.5 1 PUFF INH IH SCH ×2 (10:47→20:01)
[2020-05-31] MEDS ORDERED: Isovue-370 500 ML BOTTLE IVP ONE (10:52)
[2020-05-31] MEDS ORDERED: 0.9 % Sodium Chloride 1,000 ML IVC SCH (12:15)
[2020-05-31] MEDS: traZODone 50 MG TABLET PO SCH (21:12)
[2020-05-31] MEDS: Melatonin 3 MG TABLET PO SCH (21:12)
[2020-05-31] MEDS: LOXAPINE SUCCINATE PO SCH (21:14)
[2020-05-31] MEDS: Insulin DETEMIR 100 UNIT/ML X5UNITS SQ SCH (21:18)
[2020-06-01 04:12] LABS: Calcium 8.9 mg/dL (8.6-10.3); Phosphorous 4.8 mg/dL (2.7-4.5); Potassium 4.2 mEq/L (3.5-5.1)
[2020-06-01] MEDS: *HR* Heparin 5,000 UNIT/ML VIAL SQ SCH ×2 (05:35→16:29)
[2020-06-01] MEDS: polyethylene glycoL 3350 17 GM POWD.PACK PO SCH (07:33)
[2020-06-01] MEDS: Sennosides/Docusate Sodium TABLET PO SCH ×2 (07:33→20:22)
[2020-06-01] MEDS: Insulin LISPRO 300 UNITS/3 ML VIAL SQ SCH ×4 (07:33→20:25)
[2020-06-01] MEDS: Magnesium Oxide 400 MG TABLET PO SCH (07:42)
[2020-06-01] MEDS: Aspirin 81 MG TAB.CHEW PO SCH (07:42)
[2020-06-01] MEDS: Pyridoxine (B-6) 50 MG TABLET PO SCH (07:43)
[2020-06-01] MEDS: carvediloL 6.25 MG TABLET PO SCH ×2 (07:43→20:23)
[2020-06-01] MEDS: Famotidine 20 MG TABLET PO SCH (07:43)
[2020-06-01] MEDS: Pregabalin 50 MG CAPSULE PO SCH ×2 (07:43→20:21)
[2020-06-01] MEDS: Isosorbide MONOnitrate (24 HR) 30 MG TAB.ER.24H PO SCH (07:43)
[2020-06-01] MEDS: Tiotropium 18 MCG inhalation IH SCH ×2 (07:43→08:00)
[2020-06-01] MEDS: Budesonide/Formoterol 80/4.5 1 PUFF INH IH SCH ×2 (08:01→22:24)
[2020-06-01 13:46] LABS: Uric Acid 6.6 mg/dL (2.3-7.6)
[2020-06-01] MEDS: Acetaminophen 325 MG TABLET PO PRN (19:09)
[2020-06-01] MEDS: Melatonin 3 MG TABLET PO SCH (20:22)
[2020-06-01] MEDS: traZODone 50 MG TABLET PO SCH (20:23)
[2020-06-01] MEDS: LOXAPINE SUCCINATE PO SCH (20:24)
[2020-06-01] MEDS: Insulin DETEMIR 100 UNIT/ML X5UNITS SQ SCH (20:25)
[2020-06-02 02:25] LABS: Bacteria,Urine Few per hpf (None-Few); Bilirubin,Urine Negative (Negative); Blood,Urine Small (Negative); Clarity,Urine Clear (Clear); Color,Urine Light-Yellow (Yellow); Glucose,Urine (UA) Normal (Normal); Ketones,Urine Negative (Negative); Leukocyte Esterase,Urine Large (Negative); Mucus,Urine Few per lpf (None-Few); Nitrite,Urine Negative (Negative); Protein,Urine Negative (Neg-Trace); Specific Gravity,Urine 1.011 (1.010-1.025); Squamous Epithelial Cell,Urine Few per hpf (None-Few); Urobilinogen,Urine Normal (Normal); WBC,Urine TNTC per hpf (0-3)
[2020-06-02 05:24] LABS: Calcium 9.1 mg/dL (8.6-10.3); Magnesium 2.2 mg/dL (1.6-2.6); Phosphorous 5.4 mg/dL (2.7-4.5); Potassium 4.3 mEq/L (3.5-5.1)
[2020-06-02] MEDS: *HR* Heparin 5,000 UNIT/ML VIAL SQ SCH ×2 (05:38→18:29)
[2020-06-02] MEDS: Budesonide/Formoterol 80/4.5 1 PUFF INH IH SCH ×2 (07:35→21:43)
[2020-06-02] MEDS: Insulin LISPRO 300 UNITS/3 ML VIAL SQ SCH ×4 (09:47→20:33)
[2020-06-02] MEDS: Isosorbide MONOnitrate (24 HR) 30 MG TAB.ER.24H PO SCH (09:50)
[2020-06-02] MEDS: Aspirin 81 MG TAB.CHEW PO SCH (09:50)
[2020-06-02] MEDS: Pyridoxine (B-6) 50 MG TABLET PO SCH (09:50)
[2020-06-02] MEDS: carvediloL 6.25 MG TABLET PO SCH ×2 (09:50→20:37)
[2020-06-02] MEDS: Magnesium Oxide 400 MG TABLET PO SCH (09:50)
[2020-06-02] MEDS: Famotidine 20 MG TABLET PO SCH (09:51)
[2020-06-02] MEDS: Sennosides/Docusate Sodium TABLET PO SCH ×2 (09:51→20:41)
[2020-06-02] MEDS: polyethylene glycoL 3350 17 GM POWD.PACK PO SCH (09:51)
[2020-06-02] MEDS: Pregabalin 50 MG CAPSULE PO SCH ×2 (09:51→20:38)
[2020-06-02] MEDS: Scopolamine Patch 1.5 MG PATCH.TD72 TD SCH ×2 (18:29→20:52)
[2020-06-02] MEDS: Insulin DETEMIR 100 UNIT/ML X5UNITS SQ SCH ×2 (20:34→20:36)
[2020-06-02] MEDS: Melatonin 3 MG TABLET PO SCH (20:38)
[2020-06-02] MEDS: traZODone 50 MG TABLET PO SCH (20:38)
[2020-06-03] MEDS: *HR* Heparin 5,000 UNIT/ML VIAL SQ SCH ×2 (05:24→17:54)
[2020-06-03 07:26] LABS: Hematocrit 34.1 % (35.3-44.9); Hemoglobin 11.4 g/dL (11.5-15.4); Mean Corpuscular HGB Conc 33.4 g/dL (31.6-35.5); Mean Corpuscular Hemoglobin 27.4 pg (28.0-33.3); Mean Platelet Volume 9.8 fL (9.4-12.4); Platelet Count 201 K/mcL (140-400); Red Blood Count 4.16 M/mcL (3.82-4.97); Red Cell Distribution Width 15.7 % (11.5-14.5); White Blood Count 5.6 K/mcL (4.3-11.1)
[2020-06-03 07:47] LABS: Calcium 9.7 mg/dL (8.6-10.3); Potassium 4.5 mEq/L (3.5-5.1)
[2020-06-03] MEDS: Insulin LISPRO 300 UNITS/3 ML VIAL SQ SCH ×4 (09:51→20:40)
[2020-06-03] MEDS: polyethylene glycoL 3350 17 GM POWD.PACK PO SCH (09:53)
[2020-06-03] MEDS: Famotidine 20 MG TABLET PO SCH (09:54)
[2020-06-03] MEDS: Pyridoxine (B-6) 50 MG TABLET PO SCH (09:54)
[2020-06-03] MEDS: Isosorbide MONOnitrate (24 HR) 30 MG TAB.ER.24H PO SCH (09:55)
[2020-06-03] MEDS: Aspirin 81 MG TAB.CHEW PO SCH (09:55)
[2020-06-03] MEDS: Pregabalin 50 MG CAPSULE PO SCH ×2 (09:55→20:38)
[2020-06-03] MEDS: carvediloL 6.25 MG TABLET PO SCH ×2 (09:55→20:38)
[2020-06-03] MEDS: Magnesium Oxide 400 MG TABLET PO SCH (09:55)
[2020-06-03] MEDS: Sennosides/Docusate Sodium TABLET PO SCH ×2 (10:02→20:38)
[2020-06-03] MEDS: Budesonide/Formoterol 80/4.5 1 PUFF INH IH SCH ×2 (10:03→20:28)
[2020-06-03] MEDS: Tiotropium 18 MCG inhalation IH SCH (10:04)
[2020-06-03] MEDS: traZODone 50 MG TABLET PO SCH (20:38)
[2020-06-03] MEDS: Melatonin 3 MG TABLET PO SCH (20:39)
[2020-06-03] MEDS: Insulin DETEMIR 100 UNIT/ML X5UNITS SQ SCH (20:40)
[2020-06-03] MEDS: Acetaminophen 325 MG TABLET PO PRN (20:47)
[2020-06-04 01:19] LABS: Sodium, Urine 46.6 mEq/L
[2020-06-04 02:12] LABS: Hematocrit 35.6 % (35.3-44.9); Hemoglobin 11.7 g/dL (11.5-15.4); Mean Corpuscular HGB Conc 32.9 g/dL (31.6-35.5); Mean Corpuscular Hemoglobin 27.5 pg (28.0-33.3); Mean Corpuscular Volume 83.6 fL (83.0-100.0); Platelet Count 214 K/mcL (140-400); Red Blood Count 4.26 M/mcL (3.82-4.97); Red Cell Distribution Width 15.8 % (11.5-14.5); White Blood Count 5.8 K/mcL (4.3-11.1)
[2020-06-04 02:30] LABS: Calcium 9.8 mg/dL (8.6-10.3); Potassium 4.4 mEq/L (3.5-5.1)
[2020-06-04] MEDS: *HR* Heparin 5,000 UNIT/ML VIAL SQ SCH ×2 (05:42→16:46)
[2020-06-04] MEDS: Insulin LISPRO 300 UNITS/3 ML VIAL SQ SCH ×4 (08:32→20:15)
[2020-06-04] MEDS: Magnesium Oxide 400 MG TABLET PO SCH (08:32)
[2020-06-04] MEDS: Pregabalin 50 MG CAPSULE PO SCH ×2 (08:32→20:16)
[2020-06-04] MEDS: Pyridoxine (B-6) 50 MG TABLET PO SCH (08:32)
[2020-06-04] MEDS: Aspirin 81 MG TAB.CHEW PO SCH (08:32)
[2020-06-04] MEDS: carvediloL 6.25 MG TABLET PO SCH ×2 (08:32→20:17)
[2020-06-04] MEDS: Isosorbide MONOnitrate (24 HR) 30 MG TAB.ER.24H PO SCH (08:32)
[2020-06-04] MEDS: Sennosides/Docusate Sodium TABLET PO SCH ×3 (08:32→20:17)
[2020-06-04] MEDS: Famotidine 20 MG TABLET PO SCH (08:33)
[2020-06-04] MEDS: polyethylene glycoL 3350 17 GM POWD.PACK PO SCH (08:34)
[2020-06-04] MEDS: Tiotropium 18 MCG inhalation IH SCH (10:57)
[2020-06-04] MEDS: Budesonide/Formoterol 80/4.5 1 PUFF INH IH SCH ×2 (10:57→21:53)
[2020-06-04] MEDS: Insulin DETEMIR 100 UNIT/ML X5UNITS SQ SCH (20:15)
[2020-06-04] MEDS: traZODone 50 MG TABLET PO SCH (20:16)
[2020-06-04] MEDS: Melatonin 3 MG TABLET PO SCH (20:16)
[2020-06-05 03:45] LABS: Calcium 9.8 mg/dL (8.6-10.3); Potassium 4.1 mEq/L (3.5-5.1)
[2020-06-05] MEDS: *HR* Heparin 5,000 UNIT/ML VIAL SQ SCH (05:34)
[2020-06-05] MEDS: Insulin LISPRO 300 UNITS/3 ML VIAL SQ SCH ×2 (07:18→12:14)
[2020-06-05] MEDS: Budesonide/Formoterol 80/4.5 1 PUFF INH IH SCH (07:44)
[2020-06-05] MEDS: Tiotropium 18 MCG inhalation IH SCH (07:45)
[2020-06-05] MEDS: carvediloL 6.25 MG TABLET PO SCH (08:52)
[2020-06-05] MEDS: polyethylene glycoL 3350 17 GM POWD.PACK PO SCH (08:52)
[2020-06-05] MEDS: Sennosides/Docusate Sodium TABLET PO SCH (08:52)
[2020-06-05] MEDS: Aspirin 81 MG TAB.CHEW PO SCH (08:52)
[2020-06-05] MEDS: Pregabalin 50 MG CAPSULE PO SCH (08:52)
[2020-06-05] MEDS: Pyridoxine (B-6) 50 MG TABLET PO SCH (08:52)
[2020-06-05] MEDS: Isosorbide MONOnitrate (24 HR) 30 MG TAB.ER.24H PO SCH (08:52)
[2020-06-05] MEDS: Magnesium Oxide 400 MG TABLET PO SCH (08:52)
[2020-06-05] MEDS: Famotidine 20 MG TABLET PO SCH (08:53)
[2020-06-05 12:06] VITALS: BP 121/81
[2020-06-05 12:37] LABS: Adenovirus Not Detected (Not Detect); Bordetella Pertussis Not Detected (Not Detect); Chlamydophila pneumoniae Not Detected (Not Detect); Coronavirus 229E Not Detected (Not Detect); Coronavirus HKU1 Not Detected (Not Detect); Coronavirus NL63 Not Detected (Not Detect); Coronavirus OC43 Not Detected (Not Detect); Human Metapneumovirus Not Detected (Not Detect); Human Rhinovirus/Enterovirus Not Detected (Not Detect); Influenza A Subtype 2009 H1 Not Detected (Not Detect); Influenza B Not Detected (Not Detect); Mycoplasma pneumoniae Not Detected (Not Detect); Parainfluenza Virus 1 Not Detected (Not Detect); Parainfluenza Virus 2 Not Detected (Not Detect); Parainfluenza Virus 3 Not Detected (Not Detect); Parainfluenza Virus 4 Not Detected (Not Detect); Respiratory Syncytial Virus Not Detected (Not Detect); SARS-CoV-2 Not Detected (Not Detect)
== END 2020-06-05 13:19 | DRG 682 ==
LOC: 3BNU 15:00 → EMEROOARM 15:00 → SUATTDRO 17:44 → 3BNU 18:28 → SUATTDRO 06-01 09:59 → 2ANU 06-01 12:57
PROVIDERS: ADMIT Student in an Organized Health Care Education/Training Program; ATTEND Internal Medicine

== ENCOUNTER 2020-12-12 18:16 | Observation (INO) ==
[2020-12-12] MEDS ORDERED: Isovue-370 500 ML BOTTLE IVP ONE (19:28)
[2020-12-12 19:41] LABS: Basophils # 0.1 K/mcL (0.0-0.2); Eosinophils # 0.2 K/mcL (0.0-0.6); Eosinophils % 4.4 %; Hematocrit 31.9 % (35.3-44.9); Immature Granulocytes % 0.2 % (0-4); Lymphocytes # 0.9 K/mcL (0.6-4.6); Lymphocytes % 18.1 %; Mean Corpuscular HGB Conc 31.3 g/dL (31.6-35.5); Mean Corpuscular Hemoglobin 28.6 pg (28.0-33.3); Mean Corpuscular Volume 91.1 fL (83.0-100.0); Mean Platelet Volume 10.2 fL (9.4-12.4); Monocytes # 0.5 K/mcL (0.0-1.3); Monocytes % 11.2 %; Neutrophils # 3.1 K/mcL (1.6-8.9); Platelet Count 203 K/mcL (140-400); Red Cell Distribution Width 15.5 % (11.5-14.5); Segmented Neutrophils % 65.1 %; White Blood Count 4.8 K/mcL (4.3-11.1)
[2020-12-12 20:15] LABS: Alanine Aminotransferase 36 Units/L (7-52); Albumin/Globulin Ratio 1.2 (1.1-2.2); Alkaline Phosphatase 78 Units/L (34-104); Aspartate Amino Transferase 55 Units/L (13-39); BUN/Creatinine Ratio 13 (6-26); Bilirubin,Direct 0.1 mg/dL (0.0-0.2); Bilirubin,Indirect 0.8 mg/dL (0.0-1.0); Bilirubin,Total 0.9 mg/dL (0.3-1.0); Blood Urea Nitrogen 24 mg/dL (8-23); Calcium 9.1 mg/dL (8.6-10.3); Carbon Dioxide 29 mEq/L (23-29); Chloride 95 mEq/L (98-107); Globulin 3.4 g/dL (2.4-3.5); Glucose 290 mg/dL (70-105); Osmolality,Calculated 283 (280-300); Potassium 5.2 mEq/L (3.5-5.1); Sodium 129 mEq/L (136-145); Total Protein 7.4 g/dL (6.4-8.9); Troponin I < 0.03 ng/mL (< 0.04); eGFR For African Americans 34 (> 60); eGFR For Non-African Americans 28 (> 60)
[2020-12-12 20:16] LABS: INR 1.3; Prothrombin Time 14.6 Seconds (9.4-12.1)
[2020-12-12 20:17] LABS: VBG HCO3 25 mEq/L (21-27); VBG PCO2 36 mmHg (41-51); VBG PH 7.45 pH Units (7.32-7.42); VBG PO2 123 mmHg (25-50)
[2020-12-12 20:18] LABS: Activated Partial Thrombo Time 28.7 Seconds (26.0-36.0)
[2020-12-12] MEDS ORDERED: Furosemide 40 MG/4 ML VIAL IVP ONE (22:03)
[2020-12-12] MEDS ORDERED: *HR* Promethazine 25 MG/ML VIAL IM PRN (22:27)
[2020-12-12] MEDS ORDERED: Ondansetron 4 MG/2 ML VIAL IVP PRN (22:27)
[2020-12-12] MEDS ORDERED: Naloxone 0.4 MG/ML INJ IVP PRN (22:27)
[2020-12-12] MEDS ORDERED: Acetaminophen 325 MG TABLET PO PRN (22:27)
[2020-12-12] MEDS ORDERED: Melatonin 3 MG TABLET PO PRN (22:27)
[2020-12-12] MEDS ORDERED: *HR* HYDROcodone/Acet 5/325 mg TABLET PO PRN (22:27)
[2020-12-12] MEDS ORDERED: Dextrose Gel 15 GM/37.5 ML TUBE PO PRN ×2 (22:32)
[2020-12-12] MEDS ORDERED: *HR* Dextrose 50 % in Water (Vial) 50 ML VIAL IVP PRN (22:32)
[2020-12-12] MEDS ORDERED: D5% in Water 1,000 ML IVC PRN (22:32)
[2020-12-13] MEDS: hydrOXYzine pamoate 25 MG CAPSULE PO PRN (01:30)
[2020-12-13 02:07] LABS: Bilirubin,Urine Negative (Negative); Blood,Urine Negative (Negative); Clarity,Urine Clear (Clear); Color,Urine Colorless (Yellow); Glucose,Urine (UA) Normal (Normal); Ketones,Urine Negative (Negative); Leukocyte Esterase,Urine Negative (Negative); Nitrite,Urine Negative (Negative); Protein,Urine Negative (Neg-Trace); Specific Gravity,Urine 1.006 (1.010-1.025); Urobilinogen,Urine Normal (Normal)
[2020-12-13 05:05] LABS: Basophils # 0.1 K/mcL (0.0-0.2); Basophils % 0.9 %; Eosinophils # 0.2 K/mcL (0.0-0.6); Eosinophils % 4.3 %; Hematocrit 31.3 % (35.3-44.9); Hemoglobin 9.9 g/dL (11.5-15.4); Immature Granulocytes % 0.2 % (0-4); Lymphocytes # 0.9 K/mcL (0.6-4.6); Lymphocytes % 16.4 %; Mean Corpuscular HGB Conc 31.6 g/dL (31.6-35.5); Mean Corpuscular Hemoglobin 28.2 pg (28.0-33.3); Mean Corpuscular Volume 89.2 fL (83.0-100.0); Mean Platelet Volume 9.5 fL (9.4-12.4); Monocytes # 0.7 K/mcL (0.0-1.3); Monocytes % 12.7 %; Neutrophils # 3.5 K/mcL (1.6-8.9); Platelet Count 197 K/mcL (140-400); Red Blood Count 3.51 M/mcL (3.82-4.97); Red Cell Distribution Width 15.5 % (11.5-14.5); Segmented Neutrophils % 65.5 %; White Blood Count 5.4 K/mcL (4.3-11.1)
[2020-12-13 05:17] LABS: Albumin 3.7 g/dL (3.5-5.7); Albumin/Globulin Ratio 1.1 (1.1-2.2); Bilirubin,Total 0.8 mg/dL (0.3-1.0); Calcium 9.2 mg/dL (8.6-10.3); Globulin 3.3 g/dL (2.4-3.5); Phosphorous 3.7 mg/dL (2.7-4.5); Potassium 4.1 mEq/L (3.5-5.1)
[2020-12-13 05:19] LABS: INR 1.3; Prothrombin Time 14.9 Seconds (9.4-12.1)
[2020-12-13] MEDS: *HR* Heparin 5,000 UNIT/ML VIAL SQ SCH ×3 (05:51→20:52)
[2020-12-13] MEDS: Insulin LISPRO 300 UNITS/3 ML VIAL SUBQ SCH ×3 (07:52→17:25)
[2020-12-13] MEDS: Magnesium Oxide 400 MG TABLET PO SCH (08:42)
[2020-12-13] MEDS: carvediloL 6.25 MG TABLET PO SCH ×2 (08:42→17:34)
[2020-12-13] MEDS: Isosorbide MONOnitrate (24 HR) 30 MG TAB.ER.24H PO SCH (08:42)
[2020-12-13] MEDS: Aspirin 81 MG TAB.CHEW PO SCH (08:43)
[2020-12-13] MEDS: Pregabalin 50 MG CAPSULE PO SCH ×2 (08:43→20:52)
[2020-12-13] MEDS: Sennosides/Docusate Sodium TABLET PO SCH ×2 (08:43→20:52)
[2020-12-13] MEDS: Famotidine 20 MG TABLET PO SCH (08:43)
[2020-12-13] MEDS: Pyridoxine (B-6) 50 MG TABLET PO SCH (08:44)
[2020-12-13] MEDS: Furosemide 40 MG/4 ML VIAL IVP SCH ×2 (08:44→20:52)
[2020-12-13] MEDS ORDERED: traZODone 50 MG TABLET PO SCH ×2 (09:00→21:00)
[2020-12-13] MEDS: Tiotropium 10 INH DOSE IH SCH (10:20)
[2020-12-13] MEDS: Budesonide/Formoterol 80/4.5 1 PUFF INH IH SCH ×2 (10:21→20:10)
[2020-12-13] MEDS ORDERED: Perflutren Lipid Microsphere 1.3 ML in 0.9 % Sodium Chloride 8.7 ML IVP PRN (11:28)
[2020-12-13] MEDS ORDERED: Nitroglycerin 0.4 MG TAB.SUBL SL PRN (16:12)
[2020-12-13] MEDS ORDERED: Tiotropium 10 INH DOSE IH SCH (16:15)
[2020-12-13] MEDS ORDERED: (Loxapine Succinate [Loxapine] 10 MG Capsule) PO SCH (21:00)
[2020-12-13] MEDS ORDERED: Melatonin 3 MG TABLET PO SCH (21:00)
[2020-12-13] MEDS ORDERED: Insulin LISPRO 300 UNITS/3 ML VIAL SUBQ SCH (21:00)
[2020-12-14] MEDS: hydrOXYzine pamoate 25 MG CAPSULE PO PRN (01:20)
[2020-12-14] MEDS: *HR* Heparin 5,000 UNIT/ML VIAL SQ SCH ×2 (05:11→14:05)
[2020-12-14 05:59] LABS: Calcium 9.4 mg/dL (8.6-10.3); Potassium 4.2 mEq/L (3.5-5.1)
[2020-12-14] MEDS ORDERED: polyethylene glycoL 3350 17 GM POWD.PACK PO SCH (09:00)
[2020-12-14] MEDS: Insulin LISPRO 300 UNITS/3 ML VIAL SUBQ SCH ×2 (09:14→11:33)
[2020-12-14] MEDS: Magnesium Oxide 400 MG TABLET PO SCH (09:22)
[2020-12-14] MEDS: Pyridoxine (B-6) 50 MG TABLET PO SCH (09:22)
[2020-12-14] MEDS: Famotidine 20 MG TABLET PO SCH (09:22)
[2020-12-14] MEDS: Isosorbide MONOnitrate (24 HR) 30 MG TAB.ER.24H PO SCH (09:22)
[2020-12-14] MEDS: Sennosides/Docusate Sodium TABLET PO SCH (09:22)
[2020-12-14] MEDS: Pregabalin 50 MG CAPSULE PO SCH (09:23)
[2020-12-14] MEDS: Aspirin 81 MG TAB.CHEW PO SCH (09:23)
[2020-12-14] MEDS: Furosemide 40 MG/4 ML VIAL IVP SCH (09:23)
[2020-12-14] MEDS: carvediloL 6.25 MG TABLET PO SCH (09:23)
[2020-12-14 10:41] VITALS: BP 124/79
[2020-12-14] MEDS: Budesonide/Formoterol 80/4.5 1 PUFF INH IH SCH (13:01)
[2020-12-14] MEDS: Tiotropium 10 INH DOSE IH SCH (13:02)
[2020-12-14] MEDS ORDERED: *HR* Belladonna Alkaloids/Opium 30 MG RECTAL SUPPOSITORY RC ONE (14:22)
[2020-12-15] MEDS ORDERED: Bisacodyl 10 MG RECTAL SUPPOSITORY RC ONE (10:22)
== END 2020-12-14 15:45 ==
LOC: CDU 18:16 → EMEROOARM 18:16 → SUATTDRO 22:38 → CDU 22:46
PROVIDERS: ADMIT Internal Medicine; ATTEND Internal Medicine

== ENCOUNTER 2021-04-20 11:20 | Inpatient (IN) ==
[2021-04-20 12:16] LABS: Basophils # 0.1 K/mcL (0.0-0.2); Basophils % 1.3 %; Eosinophils # 0.2 K/mcL (0.0-0.6); Eosinophils % 3.3 %; Hematocrit 32.4 % (35.3-44.9); Hemoglobin 10.8 g/dL (11.5-15.4); Immature Granulocytes % 0.3 % (0-4); Lymphocytes % 15.8 %; Mean Corpuscular HGB Conc 33.3 g/dL (31.6-35.5); Mean Corpuscular Hemoglobin 28.6 pg (28.0-33.3); Mean Corpuscular Volume 85.7 fL (83.0-100.0); Mean Platelet Volume 10.4 fL (9.4-12.4); Monocytes # 0.8 K/mcL (0.0-1.3); Monocytes % 13.3 %; Neutrophils # 4.1 K/mcL (1.6-8.9); Platelet Count 206 K/mcL (140-400); Red Blood Count 3.78 M/mcL (3.82-4.97); White Blood Count 6.2 K/mcL (4.3-11.1)
[2021-04-20 12:22] LABS: Bilirubin,Urine Negative (Negative); Blood,Urine Large (Negative); Clarity,Urine Clear (Clear); Color,Urine Light-Yellow (Yellow); Glucose,Urine (UA) Normal (Normal); Ketones,Urine Negative (Negative); Leukocyte Esterase,Urine Negative (Negative); Nitrite,Urine Negative (Negative); PH,Urine 6.5 pH Units (5.0-8.0); Protein,Urine 30 mg/dL (Neg-Trace); RBC,Urine 15-30 per hpf (0-3); Specific Gravity,Urine 1.009 (1.010-1.025); Squamous Epithelial Cell,Urine Few per hpf (None-Few); Urobilinogen,Urine Normal (Normal); WBC,Urine 15-30 per hpf (0-3)
[2021-04-20 12:50] LABS: Calcium 9.6 mg/dL (8.6-10.3); Potassium 4.6 mEq/L (3.5-5.1); Troponin I 0.06 ng/mL (< 0.04)
[2021-04-20] MEDS ORDERED: Naloxone 0.4 MG/ML INJ IVP PRN (14:14)
[2021-04-20] MEDS ORDERED: *HR* HYDROcodone/Acet 5/325 mg TABLET PO PRN (14:14)
[2021-04-20] MEDS ORDERED: Ondansetron 4 MG/2 ML VIAL IVP PRN (14:14)
[2021-04-20] MEDS ORDERED: *HR* Dextrose 50 % in Water (Syg) 50 ML SYRINGE IVP PRN (14:20)
[2021-04-20] MEDS ORDERED: Dextrose Gel 15 GM/37.5 ML TUBE PO PRN ×2 (14:20)
[2021-04-20] MEDS ORDERED: D5% in Water 1,000 ML IVC PRN (14:20)
[2021-04-20] MEDS ORDERED: 0.9 % Sodium Chloride 250 ML IVC SCH (14:30)
[2021-04-20] MEDS ORDERED: Ipratropium/Albuterol Neb 3 ML IH PRN (15:12)
[2021-04-20] MEDS ORDERED: Nitroglycerin 0.4 MG TAB.SUBL SL PRN (15:12)
[2021-04-20] MEDS: Insulin LISPRO 300 UNITS/3 ML VIAL SUBQ SCH (18:29)
[2021-04-20] MEDS: Sennosides/Docusate Sodium TABLET PO SCH (20:59)
[2021-04-20] MEDS: carvediloL 6.25 MG TABLET PO SCH (21:00)
[2021-04-21 06:20] LABS: Basophils # 0.1 K/mcL (0.0-0.2); Basophils % 1.1 %; Eosinophils # 0.3 K/mcL (0.0-0.6); Eosinophils % 3.5 %; Hematocrit 35.3 % (35.3-44.9); Hemoglobin 11.8 g/dL (11.5-15.4); Immature Granulocytes % 0.3 % (0-4); Lymphocytes # 0.6 K/mcL (0.6-4.6); Lymphocytes % 8.2 %; Mean Corpuscular HGB Conc 33.4 g/dL (31.6-35.5); Mean Corpuscular Hemoglobin 28.6 pg (28.0-33.3); Mean Corpuscular Volume 85.5 fL (83.0-100.0); Mean Platelet Volume 9.8 fL (9.4-12.4); Monocytes # 0.8 K/mcL (0.0-1.3); Monocytes % 11.1 %; Neutrophils # 5.4 K/mcL (1.6-8.9); Platelet Count 203 K/mcL (140-400); Red Blood Count 4.13 M/mcL (3.82-4.97); Red Cell Distribution Width 14.3 % (11.5-14.5); Segmented Neutrophils % 75.8 %; White Blood Count 7.1 K/mcL (4.3-11.1)
[2021-04-21 06:29] LABS: INR 1.3; Prothrombin Time 14.6 Seconds (9.4-12.1)
[2021-04-21 06:31] LABS: Activated Partial Thrombo Time 31.9 Seconds (26.0-36.0)
[2021-04-21 06:45] LABS: Calcium 9.9 mg/dL (8.6-10.3); Magnesium 2.6 mg/dL (1.6-2.6); Phosphorous 6.4 mg/dL (2.7-4.5); Potassium 4.1 mEq/L (3.5-5.1); Troponin I 0.06 ng/mL (< 0.04); Uric Acid 8.3 mg/dL (2.3-7.6)
[2021-04-21] MEDS ORDERED: 0.9 % Sodium Chloride 250 ML IVC SCH (07:15)
[2021-04-21] MEDS: Sennosides/Docusate Sodium TABLET PO SCH ×2 (08:00→20:07)
[2021-04-21] MEDS: Insulin LISPRO 300 UNITS/3 ML VIAL SUBQ SCH ×3 (08:00→16:31)
[2021-04-21] MEDS: Magnesium Oxide 400 MG TABLET PO SCH (08:01)
[2021-04-21] MEDS: carvediloL 6.25 MG TABLET PO SCH ×2 (08:01→20:05)
[2021-04-21] MEDS ORDERED: Famotidine 20 MG TABLET PO SCH (09:00)
[2021-04-21] MEDS ORDERED: traZODone 50 MG TABLET PO SCH (09:00)
[2021-04-21] MEDS ORDERED: Artificial Tears SOLN 15 ML BOTTLE BOTH EYES PRN (12:52)
[2021-04-21] MEDS ORDERED: Scopolamine Patch 1.5 MG PATCH.TD72 TD PRN (13:00)
[2021-04-21] MEDS: Melatonin 3 MG TABLET PO SCH (20:03)
[2021-04-21] MEDS: traZODone 50 MG TABLET PO SCH (20:05)
[2021-04-21 23:55] LABS: Protein/Creatinine Ratio,Urine 2.64 mg/mg (0.00-0.20)
[2021-04-22 05:28] LABS: Calcium 9.9 mg/dL (8.6-10.3); Magnesium 2.3 mg/dL (1.6-2.6); Phosphorous 4.6 mg/dL (2.7-4.5)
[2021-04-22] MEDS: Tiotropium 10 INH DOSE IH SCH (08:02)
[2021-04-22] MEDS: Insulin LISPRO 300 UNITS/3 ML VIAL SUBQ SCH ×3 (08:25→17:08)
[2021-04-22] MEDS: Sennosides/Docusate Sodium TABLET PO SCH ×2 (08:25→21:27)
[2021-04-22] MEDS: Aspirin 81 MG TAB.CHEW PO SCH (08:26)
[2021-04-22] MEDS: carvediloL 6.25 MG TABLET PO SCH ×2 (08:26→21:21)
[2021-04-22] MEDS: Lactobacillus 1 EACH CAP.SPRINK PO SCH (08:26)
[2021-04-22] MEDS: Magnesium Oxide 400 MG TABLET PO SCH (08:35)
[2021-04-22] MEDS: Insulin DETEMIR 100 UNIT/ML X5UNITS SUBQ SCH ×2 (08:36→21:21)
[2021-04-22] MEDS: Pyridoxine (B-6) 50 MG TABLET PO SCH (08:36)
[2021-04-22] MEDS ORDERED: Lactulose Oral Soln 20 GM/30 ML UDC PO PRN (09:44)
[2021-04-22] MEDS ORDERED: Morphine Sulfate Oral CONC 10 MG/0.5 ML ORAL.SYG PO PRN (09:44)
[2021-04-22] MEDS ORDERED: *HR* LORazepam Oral Conc 2 MG/ML PO PRN (09:44)
[2021-04-22] MEDS: Pregabalin 50 MG CAPSULE PO SCH (12:19)
[2021-04-22] MEDS: traZODone 50 MG TABLET PO SCH (21:24)
[2021-04-22] MEDS: Melatonin 3 MG TABLET PO SCH (21:25)
[2021-04-23 01:30] LABS: Calcium 9.9 mg/dL (8.6-10.3); Phosphorous 3.2 mg/dL (2.7-4.5); Potassium 3.8 mEq/L (3.5-5.1)
[2021-04-23] MEDS: Pyridoxine (B-6) 50 MG TABLET PO SCH (07:36)
[2021-04-23] MEDS: Lactobacillus 1 EACH CAP.SPRINK PO SCH (07:39)
[2021-04-23] MEDS: Pregabalin 50 MG CAPSULE PO SCH (07:39)
[2021-04-23] MEDS: Aspirin 81 MG TAB.CHEW PO SCH (07:39)
[2021-04-23] MEDS: carvediloL 6.25 MG TABLET PO SCH (07:40)
[2021-04-23] MEDS: Magnesium Oxide 400 MG TABLET PO SCH (07:41)
[2021-04-23] MEDS: Insulin LISPRO 300 UNITS/3 ML VIAL SUBQ SCH ×2 (07:42→11:35)
[2021-04-23] MEDS: Sennosides/Docusate Sodium TABLET PO SCH (07:45)
[2021-04-23] MEDS: Insulin DETEMIR 100 UNIT/ML X5UNITS SUBQ SCH (07:47)
[2021-04-23] MEDS: Tiotropium 10 INH DOSE IH SCH (07:59)
[2021-04-23] MEDS ORDERED: Famotidine 20 MG TABLET PO SCH (09:00)
[2021-04-23] MEDS ORDERED: polyethylene glycoL 3350 17 GM POWD.PACK PO SCH (09:00)
[2021-04-23 11:06] LABS: Adenovirus Not Detected (Not Detect); Bordetella Pertussis Not Detected (Not Detect); Chlamydophila pneumoniae Not Detected (Not Detect); Coronavirus 229E Not Detected (Not Detect); Coronavirus HKU1 Not Detected (Not Detect); Coronavirus NL63 Not Detected (Not Detect); Coronavirus OC43 Not Detected (Not Detect); Human Metapneumovirus Not Detected (Not Detect); Human Rhinovirus/Enterovirus Not Detected (Not Detect); Influenza A Subtype 2009 H1 Not Detected (Not Detect); Influenza B Not Detected (Not Detect); Mycoplasma pneumoniae Not Detected (Not Detect); Parainfluenza Virus 1 Not Detected (Not Detect); Parainfluenza Virus 2 Not Detected (Not Detect); Parainfluenza Virus 3 Not Detected (Not Detect); Parainfluenza Virus 4 Not Detected (Not Detect); Respiratory Syncytial Virus Not Detected (Not Detect); SARS-CoV-2 Not Detected (Not Detect)
[2021-04-23 11:47] VITALS: BP 131/72; PULSE 62; TEMP 97.6; O2SAT 99
[2021-04-23] MEDS ORDERED: carvediloL 6.25 MG TABLET PO SCH (17:00)
[2021-04-24] MEDS ORDERED: Tiotropium 10 INH DOSE IH SCH (10:00)
[2021-04-25 10:45] LABS: Kappa Qnt Free Light Chains 123.6 mg/L (3.30-19.40)
[2021-04-26 17:32] LABS: Alpha 2 Globulin (PEP) 1.02 g/dL (0.48-1.05); Beta Globulin (PEP) 0.75 g/dL (0.48-1.10)
[2021-04-27 10:33] LABS: IFE Reflexed NOT DONE
== END 2021-04-23 13:55 | DRG 683 ==
LOC: EMEROOARM 11:20 → 2ANU 11:20 → SUATTDRO 04-21 12:39
PROVIDERS: ADMIT Family Medicine; ATTEND Internal Medicine